=== PATIENT | female | born 1945 | race Caucasian/White ===

== ENCOUNTER 2019-08-16 14:06 | Inpatient (IN) ==
[2019-08-16] MEDS ORDERED: DUONEB (A & A) ONE (14:17)
[2019-08-16] MEDS ORDERED: ASPIRIN PO ONE (14:22)
[2019-08-16 14:32] LABS: ALLEN TEST YES; BE 3.9 mmoll (-3.0-3.0); BLOOD TYPE ARTERIAL; HCO3-(ACT) 27.8 mmoll (20.0-26.0); O2(CT) 17.9 mL/dL (15.0-23.0); PCO2(98.6) 48 mmHg (35-45); PO2(98.6) 59 mmHg (60-100); SAMPLE BLOOD; SAO2 93.7 % (95.0-100.0); THB 14.2 g/dL (11.5-17.4)
[2019-08-16 14:34] LABS: MODALITY NRB; O2HB 89.9 % (95.0-99.0)
[2019-08-16] MEDS ORDERED: LASIX IV ONE ×3 (14:40→22:00)
--- NOTE | 2019-08-16 14:53 | Diag Imaging Result Doc PS360 ---
EXAM: CHEST-1 VIEW 08/16/2019 HISTORY: resp distress TECHNIQUE: AP portable upright at 1443 COMMENT: There is a pleural effusion on the left. There is atelectasis versus pneumonia in the left lower lobe. These findings were not present on 08/25/2017. There is also some questionable atelectasis or pneumonia in the medial right base. IMPRESSION: Left pleural effusion and bibasilar atelectasis versus pneumonia. Electronically signed by Arnold Aguilar 08/16/2019 2:51 PM
[2019-08-16] MEDS ORDERED: VANCOMYCIN 1 GM/NS 1 GM/250 ML IVPB IV ONE (15:30)
[2019-08-16] MEDS ORDERED: LEVAQUIN 750 MG/D5W 750 MG/150 ML IVPB IV ONE (15:30)
--- NOTE | 2019-08-16 16:01 | Diag Imaging Result Doc PS360 ---
EXAM: CHEST-PORTABLE 08/16/2019 HISTORY: post right sbuclavian vein canulation TECHNIQUE: AP portable at 1550 COMMENT: There is ill-defined opacity in both lung bases particularly the left lower lobe. There is an apparent left pleural effusion. There is a right subclavian central venous catheter with its tip in the superior vena cava. There is no evidence of pneumothorax. Compared to the previous study at 1443 there has been no appreciable change. IMPRESSION: Bilateral lower lobe atelectasis and/or pneumonia particularly in the left lower lobe. Left pleural effusion. Electronically signed by Arnold Aguilar 08/16/2019 3:59 PM
[2019-08-16] MEDS ORDERED: PULMICORT INH ONE (16:11)
[2019-08-16] MEDS ORDERED: DUONEB (A & A) INH ONE (16:11)
[2019-08-16 16:26] LABS: URINE SOURCE CATH
[2019-08-16 16:29] LABS: BILIRUBIN URINE SMALL (NEGATIVE); BLOOD URINE NEGATIVE (NEGATIVE); COLOR ORANGE; GLUCOSE URINE NEGATIVE (NEGATIVE); KETONE URINE TRACE mg/dL (NEGATIVE); LEUKOCYTES URINE NEGATIVE (NEGATIVE); NITRITE URINE NEGATIVE (NEGATIVE); PH URINE 5.5; PROTEIN URINE 30 mg/dL (NEGATIVE); SP GRAVITY URINE 1.022; TURBIDITY URINE CLEAR (CLEAR); UROBILINOGEN URINE 8 mg/dL (NORMAL)
[2019-08-16 16:31] LABS: UR EPITHELIAL CELLS <10 /HPF (<10); URINE BACTERIA NEGATIVE /HPF; URINE RBC <10 /HPF (<10); URINE WBC <10 /HPF (<10)
[2019-08-16 16:39] LABS: BASO# 0.01 X1000 (0.0-0.2); BASO% 0.2 % (0.0-0.8); EOS# 0.04 X1000 (0.0-0.7); EOS% 0.6 % (0.0-10.0); HEMATOCRIT 42.8 % (37.0-47.0); HEMOGLOBIN 13.4 g/dL (12.0-16.0); IMM GRAN# 0.04 X1000 (0.0-0.04); IMM GRAN% 0.6 % (0.0-0.5); LYMPH# 0.85 X1000 (1.2-3.4); LYMPH% 13.3 % (20.5-51.1); MCH 30.7 PG (27-31); MCHC 31.3 g/dL (33-37); MCV 97.9 FL (81-99); MONO# 1.03 X1000 (0.11-0.59); MONO% 16.1 % (1.7-9.3); NEUT# 4.43 X1000 (1.4-6.5); NEUT% 69.2 % (42.2-75.2); PLT 191 X1000 (130-400); RBC 4.37 XMIL (4.2-5.4); RDW 16.5 % (11.5-14.5)
[2019-08-16 16:42] LABS: INR 1.13; PROTIME 14.6 Seconds (11.0-16.0); PTT 26.2 Seconds (22.3-41.8)
[2019-08-16 16:59] LABS: AGAP 13; ALBUMIN 2.7 g/dL (3.5-5.0); ALKALINE PHOSPHATASE 35 U/L (32-104); BUN 24 mg/dL (8-22); CALCIUM 8.8 mg/dL (8.8-10.2); CHLORIDE 98 mmol/L (98-107); CK PROFILE 32 U/L (24-173); COSMO 284; CREATININE 0.6 mg/dL (0.5-0.9); ESTIMATED GFR > 60; GLUCOSE 101 mg/dL (70-104); GOT 8 U/L (10-30); GPT 11 U/L (10-36); SODIUM 140 mmol/L (136-145); TCO2 29 mmol/L (25-35); TOTAL BILIRUBIN 0.68 mg/dL (0.20-1.00); TOTAL PROTEIN 5.4 g/dL (6.3-8.3)
[2019-08-16] MEDS ORDERED: POTASSIUM CHLORIDE 40 MEQ/SWI 40 MEQ/100 ML IVPB IV ONE (17:23)
--- NOTE | 2019-08-16 17:56 | PROVIDER DOCUMENTATION ---
This chart was entered by Sonya Bradley Scribe, acting as scribe for Ranjit Singletary MD. HPI-Respiratory General - General Source: patient, EMS (first response) Unable to obtain history due to:: altered (pt has decreased mental status) - History of Present Illness-Resp Quality of Pain: reports: none Severity in ED: reports: moderate Onset/Duration: reports: 1 hour ago Timing: reports: still present, constant Exposure: reports: unknown cause Cough Quality/Degree: reports: no cough Episode Frequency: no prior episodes Current Respiratory Medication Therapy: Initiated see nurses note Modifying Factors: improves with: nothing Associated Symptoms: reports: shortness of breath. denies: chest pain/soreness, dizziness, fever/chills <Ranjit Singletary - Last Filed: 08/16/19 18:43> <StephaneDiandradevin Jesus - Last Filed: 08/17/19 18:26> - General Chief Complaint: Shortness of Breath Stated Complaint: resp distress Time Seen by Provider: 08/16/19 14:09 Allergies/Adverse Reactions: Patient Allergies Allergy/AdvReac Type Severity Reaction Status Date / Time cephalexin monohydrate * Allergy Unknown Unknown Verified 08/16/19 15:53 [From Keflex] chlordiazepoxide HCl * Allergy Unknown Unknown Verified 08/16/19 15:53 [From Librium] codeine [Codeine] Allergy Unknown Unknown Verified 08/16/19 15:53 Iodinated Contrast Media Allergy Unknown Unknown Verified 08/16/19 15:53 [Iodinated Contrast Media - IV Dye] levofloxacin [From Levaquin] Allergy Unknown Unknown Verified 08/16/19 15:53 Sulfa (Sulfonamide Allergy Unknown Unknown Verified 08/16/19 15:53 Antibiotics) [Sulfa(Sulfonamide Antibiotics)] sulfamethoxazole Allergy Unknown Unknown Verified 08/16/19 15:53 [From Bactrim] trimethoprim [From Bactrim] Allergy Unknown Unknown Verified 08/16/19 15:53 Home Medications: Home Medication List Medication Instructions Recorded Confirmed Last Taken Type Alprazolam [Xanax] 1 mg PO BID 06/30/12 08/16/19 08/15/19 20:00 History Cyanocobalamin (Vitamin B-12) 1,000 mcg IM Q30D 06/30/12 08/16/19 08/06/19 12:00 History [Cobal-1000] Dicyclomine [Bentyl] 20 mg PO TID 06/30/12 08/16/19 08/15/19 20:00 History Levothyroxine [Synthroid] 100 microgm PO QPM 06/30/12 08/16/19 08/15/19 20:00 History Isosorbide Mononitrate E.r. [Imdur] 30 mg PO QAM 12/01/12 08/16/19 08/15/19 08:00 History Mag Hydrox/Al Hydrox/Simeth 20 ml PO Q4H PRN PRN 12/01/12 08/16/19 11/29/18 21:00 History [Mylanta Liq] LISINOpril [Prinivil] 20 mg PO QAM 01/21/14 08/16/19 08/16/19 08:00 History Quetiapine Fumarate [Seroquel] 50 mg PO BID 11/04/15 08/16/19 08/15/19 21:00 History Omeprazole 40 mg PO BID #60 capsule. 10/07/16 08/16/19 11/29/18 21:00 Rx Aspirin [Ecotrin] 325 mg PO BID #60 tablet. 11/30/18 08/16/19 08/15/19 20:00 Rx Albuterol 2.5MG/Ipratrop 0.5MG 1 ea IN 4XDAY 08/16/19 08/16/19 Unknown History [Duoneb (A & A)] Cetirizine HCl 10 mg PO DAILY 08/16/19 08/16/19 08/15/19 20:00 History Clindamycin HCl 300 mg PO TID 08/16/19 08/16/19 08/16/19 08:00 History Duloxetine HCl 60 mg PO DAILY 08/16/19 08/16/19 08/15/19 09:00 History Ergocalciferol (Vitamin D2) 50,000 unit PO Q7D 08/16/19 08/16/19 08/13/19 08:00 History [Vitamin D] Lactobacillus Rhamnosus GG 1 ea PO DAILY 08/16/19 08/16/19 08/15/19 08:00 History [Probiotic] Linaclotide [Linzess] 290 mcg PO QPM 08/16/19 08/16/19 08/15/19 20:00 History Metoclopramide HCl 10 mg PO BID 08/16/19 08/16/19 08/15/19 20:00 History Oxycodone HCl/Acetaminophen 1 ea PO BID 08/16/19 08/16/19 08/15/19 20:00 History [Percocet 5-325 mg Tablet] Prednisone 20 mg PO DAILY 08/16/19 08/16/19 08/15/19 08:00 History Valproic Acid (As Sodium Salt) 10 ml PO BID 08/16/19 08/16/19 08/13/19 08:00 History [Valproic Acid] - History of Present Illness-Resp Nature of Presenting Problem: 74 yowf presents to the ed via ems for sob. per ems pt was found to be having sob 1 hr prior to call for transport. when ems aos pt had nc in place with o2 sat 72%. ems placed pt on NRB and o2 sat came up to 84%. pt has decreased responsiveness with onset of sob. pt was placed on Bipap once in ed. (Ranjit Singletary) Review of Systems - Adult - REVIEW OF SYSTEMS - ADULT ROS:: limited per condition Constitutional: denies: chills, fever Eyes: reports: no symptoms reported Ears, Nose, Mouth & Throat: reports: no symptoms reported Cardiovascular: denies: chest pain, palpitations Respiratory: reports: see HPI, shortness of breath Gastrointestinal: denies: abdominal pain, diarrhea, nausea, vomiting Genitourinary: reports: no symptoms reported Musculoskeletal: reports: no symptoms reported Integumentary: reports: no symptoms reported Neurological: denies: dizziness/vertigo, headache/migraines Psychiatric: reports: no symptoms reported Endocrine: reports: no symptoms reported Hematologic/Lymphatic: reports: no symptoms reported Allergic/Immunologic: reports: no symptoms reported All Other Systems: Reviewed and Negative <Ranjit Singletary - Last Filed: 08/16/19 18:43> Past History - Adult - PAST MEDICAL HISTORY-ADULT Review of Records: reports: Old Records Reviewed, Nursing Assessment Review, Medications Reviewed, Social history reviewed & non-contributory. Major Childhood Illnesses: reports: denies history Cardiovascular: reports: CAD, HTN, hyperlipidemia Respiratory: reports: denies history Gastrointestinal: reports: GERD, IBS Obstetrical/Gynecological: reports: denies history Genitourinary: reports: kidney disease Musculoskeletal: reports: denies history Hand Dominance: Right Handed Neurological: reports: dementia, other (blindness) Psychiatric: reports: anxiety, bipolar Endocrine/Immune: reports: Diabetes, thyroid disorder Diabetes Type: Type 2 Other Conditions: reports: blindness - PRIOR SURGERIES/PROCEDURES Surgical/Procedure History: reports: cholecystectomy, hernia repair, other (Hea rt cath 11/13 with no significant CAD (20-25%), corneal transplant). denies: cardiac stent - IMMUNIZATION STATUS Childhood Immunizations: See Nurse Assessment Flu Vaccine: See Nurse Assessment - FAMILY HISTORY Family History: reviewed, not pertinent - SOCIAL HISTORY Smoking: quit greater than 1 year Substance Use: denies Living Situation: care facility <Ranjit Singletary - Last Filed: 08/16/19 18:43> Physical Exam-General - PHYSICAL EXAM-ADULT Initial Vital Signs Reviewed: Yes - CONSTITUTIONAL General Appearance: moderate distress, obese, lethargic. negative: appears well (ill appearaing) - EYES Eyes: negative: PERRL/EOMI (pt is blind) - HEAD, EARS, NOSE, MOUTH & THROAT HENMT: negative: moist mucous membranes (dry) - NECK Neck: full range of motion, normal inspection - RESPIRATORY Respiratory: respiratory distress, accessory muscle use, crackles, increased rate (32), other (pt on NRB o2 88%) - CARDIOVASCULAR Cardiovascular: tachycardia (112) - CHEST (BREASTS) Chest/Breast: deferred - GASTROINTESTINAL (ABDOMEN) Abdominal Exam: non tender, soft - GENITOURINARY Female Genitalia/Pelvic Exam: deferred Rectal Exam: deferred Hemoccult Exam: deferred - LYMPHATIC Lymphatic: no adenopathy - MUSCULOSKELETAL Back Exam: other (pt is supine in the bed) Extremity: normal capillary refill - SKIN Integumentary: warm/dry, ecchymosis (around the neck and upper chest), pallor, other (skin tear noted on left arm) - PSYCHIATRIC Psych/Mental Status: other (pt is lethargic and low to respond) <Ranjit Singletary - Last Filed: 08/16/19 18:43> Progress - PLAN OF CARE/RESULTS Result Diagrams: 08/16/19 16:22 02/13/20 15:55 - REASSESSMENT Reassessment #1 Time Reassessed: 15:31 Status: unchanged (dr at bedside) Reassessment #2 Time Reassessed: 17:28 Status: other (cardiac catheterization technician reports that patient is allergic to dye, will d/c CTA and put an order for VQ scan. Patient placed on vanco for now, She has multiple abx allergy- to cephalezine, levaquine amongst others) - XRAY 1 XRAY: Bilateral XRAY Study: Chest ( EXAM: CHEST-1 VIEW 08/16/2019 HISTORY: resp distress TECHNIQUE: AP portable upright at 1443 COMMENT: There is a pleural effusion on the left. There is atelectasis versus pneumonia in the left lower lobe. These findings were not present on 08/25/2017. There is also some questionable atelectasis or pneumonia in the medial right base. IMPRESSION: Left pleural effusion and bibasilar atelectasis versus pneumonia. Electronically signed by Arnold Aguilar 08/16/2019 2:51 PM) Impression: See EMR Report (EXAM: CHEST-1 VIEW 08/16/2019 HISTORY: resp distress TECHNIQUE: AP portable upright at 1443 COMMENT: There is a pleural effusion on the left. There is atelectasis versus pneumonia in the left lower lobe. These findings were not present on 08/25/2017. There is also some questionable atelectasis or pneumonia in the medial right base. IMPRESSION: Left pleural effusion and bibasilar atelectasis versus pneumonia. Electronically signed by Arnold Aguilar 08/16/2019 2:51 PM 08/16/19 1451 Interpreting Physician: Arnold Aguilar MD Dictated Date/Time: 08/16/19 1450 cc: Ranjit Singletary MD;) 2 XRAY: Bilateral XRAY Study: Chest Impression: See EMR Report (EXAM: CHEST-PORTABLE 08/16/2019 HISTORY: post right sbuclavian vein canulation TECHNIQUE: AP portable at 1550 COMMENT: There is ill-defined opacity in both lung bases particularly the left lower lobe. There is an apparent left pleural effusion. There is a right subclavian central venous catheter with its tip in the superior vena cava. There is no evidence of pneumothorax. Compared to the previous study at 1443 there has been no appreciable change. IMPRESSION: Bilateral lower lobe atelectasis and/or pneumonia particularly in the left lower lobe. Left pleural effusion. Electronically signed by Arnold Aguilar 08/16/2019 3:59 PM 08/16/19 1559 Interpreting Physician: Arnold Aguilar MD Dictated Date/Time: 08/16/19 1558 cc: Ranjit Singletary MD; Kaleb Langston MD) - CONSULTS/PCP/HOSPITALIST Notification #1 *Consult/PCP/Hospitalist*: hospitalist MEDICAL OFFICE ADMINISTRATOR Phyllis Time Discussed: 17:49 Consult Disposition: Will see in ED, Admit (accepts admission to Dr Crabtree) <Ranjit Singletary - Last Filed: 08/16/19 18:43> - PLAN OF CARE/RESULTS Result Diagrams: 08/17/19 03:57 08/17/19 03:57 <Diandra Calderón - Last Filed: 08/17/19 18:26> - PLAN OF CARE/RESULTS Progress/Plan/Lab Results: 08/16/19 14:29 - Final Blood Laboratory Results - last 24 hr 08/16/19 08/16/19 08/16/19 00:20 15:55 18:00 Troponin T High Sens 54 H 58 H Plasma Lactate 1.4 Orders Category Date Time Status Admit - [facility] Routine AdmDCTranf 08/16/19 21:52 Active Activity - Up with Assistance ORDERED Care 08/16/19 21:52 Active Cardiac Monitoring DIRECTED Care 08/16/19 14:21 Completed Cardiac Monitoring DIRECTED Care 08/16/19 14:22 Completed Elevate Head of Bed DIRECTED Care 08/16/19 21:52 Active Encourage Fluids DIRECTED Care 08/16/19 21:52 Active IV Insertion ORDERED Care 08/16/19 14:21 Completed Intake and Output-Strict Q 8-HR ASSESS Care 08/16/19 21:52 Active Notify MD of + Sepsis Screen NOW Care 08/16/19 14:21 Completed Notify Physician As Ordered Care 08/16/19 14:21 Active Nursing- Assist w/ IS as order ORDERED Care 08/16/19 21:52 Active Oxygen Therapy- ED Nursing DIRECTED Care 08/16/19 14:22 Completed Saline Loc NOW Care 08/16/19 14:22 Completed Turn, Cough and Deep Breathe Q2HR Care 08/16/19 21:52 Active Vital Signs Order Q 4-HR ASSESS Care 08/16/19 21:52 Completed Z-Document. for Tele Applied ORDERED Care 08/16/19 21:52 Active Diabetic Diet Diet 08/16/19 21:53 Completed CHEST-1 VIEW [RAD] Stat Exams 08/16/19 14:[address] HEAD W/O CONTRAST [CT] Stat Exams 08/16/19 18:29 Completed LUNG SCAN / VQ [NM] Stat Exams 08/16/19 17:24 Completed cxr [CHEST-PORTABLE] [RAD] Stat Exams 08/16/19 15:34 Completed ABG [RESP] Routine Lab 08/16/19 14:24 Completed BASIC METABOLIC PANEL [CHEM] Routine Lab 08/17/19 03:57 Completed BLOOD CULTURE [BLDCUL] Stat Lab 08/16/19 14:29 Results CBC WITH DIFF [HEME] Routine Lab 08/17/19 03:57 Completed CBC WITH ELECTRONIC DIFF [HEME] Routine Lab 08/16/19 16:22 Completed CK PROFILE [SP CHEM] Stat Lab 08/16/19 15:55 Completed COMPREHENSIVE METABOLIC PANEL [CHEM] Stat Lab 08/16/19 15:55 Completed D-DIMER [COAG] Stat Lab 08/16/19 15:55 Completed GRAM STAIN [BLDCUL] Stat Lab 08/16/19 14:29 Results INFLUENZA SCREEN A/B Stat Lab 08/16/19 20:50 Completed LACTATE, PLASMA [CHEM] Lab 08/16/19 18:00 Completed LACTATE, PLASMA [CHEM] Lab 08/16/19 21:07 Completed LACTATE, PLASMA [CHEM] Q3H Lab 08/16/19 15:55 Completed PRO B-NATRIURETIC PEPTIDE Stat Lab 08/16/19 15:55 Completed PROTIME WITH INR [COAG] Stat Lab 08/16/19 15:55 Completed PTT [COAG] Stat Lab 08/16/19 15:55 Completed TROPONIN T HIGH SENSITIVITY Q3H Lab 08/16/19 00:20 Completed TROPONIN T HIGH SENSITIVITY Q3H Lab 08/17/19 03:57 Completed TROPONIN T HIGH SENSITIVITY Stat Lab 08/16/19 15:55 Completed TSH Stat Lab 08/16/19 15:55 Completed URINALYSIS W/POSS RFLX CULT [URINALYSIS] Stat Lab 08/16/19 15:30 Completed Albuterol 2.5MG/Ipratrop 0.5MG [Duoneb (A & A)] Med 08/16/19 16:11 Discontinued 3 ml INH NOW ONE Albuterol 2.5MG/Ipratrop 0.5MG [Duoneb (A & A)] Med 08/16/19 21:52 Active 3 ml INH RTQ4H Albuterol 2.5MG/Ipratrop 0.5MG [Duoneb (A & A)] Med 08/16/19 14:17 Discontinued 6 ml .ROUTE .STK-MED ONE Aspirin Med 08/16/19 14:22 Discontinued 325 mg PO NOW ONE Budesonide [Pulmicort] Med 08/16/19 16:11 Discontinued 0.25 mg INH NOW ONE Enoxaparin [Lovenox] Med 08/16/19 21:52 Discontinued 40 mg SUBQ Q24H Enoxaparin [Lovenox] Med 08/16/19 18:31 Discontinued 80 mg SUBQ NOW ONE Furosemide [Lasix] Med 08/16/19 14:40 Discontinued 40 mg IV NOW ONE Levofloxacin 750 mg/D5w [Levaquin 750 mg/D5w] Med 08/16/19 15:30 Discontinued 750 mg in 150 ml IV NOW Pharmacy Order [Vancomycin IV Per Pharmacy] Med 08/16/19 21:52 Active 1 each MISC DIRECTED Potassium Chloride 20 Meq/Swi Med 08/16/19 18:30 Discontinued 20 meq in 100 ml IV Q2H Potassium Chloride 40 Meq/Swi Med 08/16/19 17:23 Stop Req 40 meq in 100 ml IV ONCE Vancomycin 1 gm/Ns Med 08/16/19 15:30 Discontinued 1 gm in 250 ml IV NOW Aerosol Treatments Routine Oth 08/16/19 16:11 Completed Aerosol Treatments Routine Oth 08/16/19 21:52 Completed Aerosol Treatments Stat Ot 08/16/19 16:11 Completed Aerosol Treatments Stat Oth 08/16/19 21:52 Completed BIPAP Routine Ot 08/16/19 21:52 Active Incentive Spirometer Routine Oth 08/16/19 21:52 Completed Oxygen Device Stat Ot 08/16/19 14:21 Completed Telemetry [OM.EQ] Routine Ot 08/16/19 21:52 Active Venous U/S Bilateral Legs Routine Ther 08/17/19 07:00 Completed Transfer/Admit Order [TRANSFER] Routine Transfer 08/16/19 18:02 Completed Procedures - CENTRAL LINE Consent Form Signed?: No (emmergency- Respiratory distress, hypotensive on bipap) Time-Out Verification Completed?: Yes Central Line Lumen: triple Central Line Procedure Prep: Kit Utilized Patient Position (To prevent Air Embolism): Trendelenburg (SC/IJ) Central Line Position: subclavian (R) Ultrasound Guided?: No Hat, mask, sterile gown, & sterile gloves worn by physician?: Yes Site scrubbed vigorously for 30 seconds? (Groin: 2 min): Yes Anesthetic: 1%, Lidocaine/Xylocaine Post Procedure: Sutured in place, Sterile field maintained, Sterile dressing applied, Blood aspirated from each lumen, Placement verfied by XRAY Complications: none <Ranjit Singletary - Last Filed: 08/16/19 18:43> Departure - Departure Date of Disposition Decision: 08/16/19 Time of Disposition Decision: 17:51 Certified Medical Emergency: Emergent - Critical Care Note This patient required my direct & personal management of CC.: Yes Total Time (mins): 39 Critical Care Statement: This patient required my direct personal management to treat or rule out processes, the absence of which, could potentiallly result in sudden, clinically significant life or limb threatening deterioration. <Ranjit Singletary - Last Filed: 08/16/19 18:43> <Diandra Calderón - Last Filed: 08/17/19 18:26> - Departure DIAGNOSIS: Elevated d-dimer Pneumonia Qualifiers: Pneumonia type: due to unspecified organism Laterality: bilateral Lung location: lower lobe of lung Qualified Code(s): J18.1 - Lobar pneumonia, unspe cified organism Dyspnea Qualifiers: Dyspnea type: unspecified Qualified Code(s): R06.00 - Dyspnea, unspecified CHF exacerbation Qualifiers: Heart failure type: unspecified Qualified Code(s): I50.9 - Heart failure, unspecified Disposition: ADMITTED INPATIENT 09 Condition: Fair Attestation - Physician/ DOMENIC Attestation Patient care was provided by Advanced Practice Provider:: No The physician spent face to face time with patient:: Yes Advanced Practice Provider documentation review:: Supervising physician onsite and consulted in the evaluation and care of this patient. The physician did have a face to face encounter with the patient. <Ranjit Singletary - Last Filed: 08/16/19 18:43> This chart was documented by the indicated scribe, (Sonya Bradley Scribe) and accurately reflects the services I performed and decisions made by me, Ranjit Singletary MD, as attested by the provider's signature.
[2019-08-16] MEDS: POTASSIUM CHLORIDE 20 MEQ/SWI 20 MEQ/100 ML IVPB IV SCH ×2 (18:30→22:41)
[2019-08-16] MEDS ORDERED: LOVENOX SUBQ ONE (18:31)
--- NOTE | 2019-08-16 19:46 | Diag Imaging Result Doc PS360 ---
EXAM: CT HEAD W/O CONTRAST 08/16/2019 HISTORY: encephalopathy TECHNIQUE: This exam was performed using automated exposure control, adjustment of mA or kV according to patient size, and/or use of iterative reconstruction technique. COMMENT: There is mild generalized cerebral atrophy. There are patchy lucencies in the periventricular white matter both hemispheres particularly in the frontal lobes and around the atria of the lateral ventricles. There is no evidence of mass effect, bleed, or abnormal extra-axial fluid collection. There are no previous studies available for comparison. There is some fluid in the mastoid air cells bilaterally. The middle ear cavities are pneumatized. The other paranasal sinuses are clear. The calvarium is intact. IMPRESSION: Chronic ischemic microvascular changes. Bilateral mastoid effusions. No evidence of acute intracranial disease. Electronically signed by Arnold Aguilar 08/16/2019 7:44 PM
--- NOTE | 2019-08-16 19:51 | Diag Imaging Result Doc PS360 ---
EXAM: CT THORAX W/O CONTRAST 08/16/2019 HISTORY: Hypoxia. Eval for Left lung pneumonia TECHNIQUE: This exam was performed using automated exposure control, adjustment of mA or kV according to patient size, and/or use of iterative reconstruction technique. COMMENT: The current study is compared with the previous examination of 11/04/2015. There is dense consolidation of both lower lobes. There are calcifications in both lower lobes which were not apparent on the previous examination. These densities may actually be related to iodine deposition from amiodarone, and clinical correlation is recommended in this regard. There is a small pericardial effusion which measures up to 6 mm anteriorly. This is slightly larger than on the previous study. There are coronary calcifications. The aorta is not distended. There is some motion artifact. There is some ill-defined opacity in the lingula which was not the case on the previous study. This was also not present previously. The regional skeleton is intact. There is a right subclavian catheter with its tip in the superior vena cava. IMPRESSION: Bilateral lower lobe pneumonia. Minimal pneumonitis in the right upper lobe. Radio opacity in both lower lobes which may be related to amiodarone deposition. Electronically signed by Arnold Aguilar 08/16/2019 7:49 PM
[2019-08-16] MEDS ORDERED: ASPIRIN PR ONE (19:59)
--- NOTE | 2019-08-16 20:09 | EKG Report ---
Test Performed on : 08/16/2019 6:48:05 PM Test Reason : Evaluate for ST T changes/ACS Blood Pressure : / mmHG Vent. Rate : 102 BPM Atrial Rate : 102 BPM P-R Int : 144 ms QRS Dur : 114 ms QT Int : 326 ms P-R-T Axes : 046 012 206 degrees QTc Int : [address] & T wave abnormality, consider inferolateral ischemia Abnormal ECG When compared with ECG of 25-AUG-2017 07:37, Vent. rate has increased BY 49 BPM T wave inversion now evident in Inferior leads T wave inversion now evident in Anterolateral leads Confirmed by Rut Esteves MD ([id number]) on 08/17/2019 12:17:10 PM
[2019-08-16] MEDS ORDERED: VANCOMYCIN IV PER PHARMACY MISC SCH (21:52)
[2019-08-16] MEDS ORDERED: LOVENOX SUBQ SCH (21:52)
[2019-08-16] MEDS: SYNTHROID PO SCH (22:47)
--- NOTE | 2019-08-16 22:47 | PROGRESS NOTE ---
DATE: 08/16/2019 I called patient's son and left a voice message. He did not pick and shovel man. The daughter's number, which is listed in the patient's computer chart, is not functioning, and it states that number was not accepting incoming calls. I will try again and reach out to patient's son tomorrow to discuss with him about the patient's critical clinical condition. cc: Fausto Crabtree MD
[2019-08-16] MEDS: REGLAN PO SCH (22:48)
[2019-08-16] MEDS: PRILOSEC PO SCH (22:48)
[2019-08-16] MEDS: DUONEB (A & A) INH SCH (23:10)
--- NOTE | 2019-08-16 23:27 | HISTORY AND PHYSICAL ---
PRIMARY CARE PHYSICIAN: Dr. Kaleb Langston. CHIEF COMPLAINT: Respiratory distress. Was found on O2 at 2 L via nasal cannula saturating in the 70s when EMS arrived to [facility]. Then placed on a non-rebreather at 15 L and O2 saturation came up to 88 to 90 percent. HISTORY OF PRESENTING ILLNESS: This is a 74-year-old female who presents to [facility] via EMS from [facility] after she was found to be in respiratory distress. When EMS arrived, she was on O2 via nasal cannula saturating in the 70s. They placed her on a non-rebreather at 15 L and her O2 saturation came up to 88 to 90 percent. Was in obvious distress. Laboratory data showed a D-dimer of 0.87. We were unable to do a PE study via CTA due to allergy to contrast dye, so we will order a V/Q scan for in the morning. Her ABG on the 15 L of non-rebreather showed a pH of 7.40, pCO2 of 48, PO2 of 59, bicarbonate 27.8. Potassium was 3. ProBNP of 1524. Plasma lactate was 1.8. Her chest x-ray showed bilateral lower lobe atelectasis and/or pneumonia particularly in the left lobe with a left pleural effusion. This was status post placement of a right subclavian vein catheter. So she will be admitted to the PVC unit for further evaluation and treatment. PAST MEDICAL HISTORY: Anxiety, depression, dementia, hypertension, blindness, hyperlipidemia, GERD, hypothyroidism, diabetes type 2, and coronary artery disease. PAST SURGICAL HISTORY: Cholecystectomy, hernia repair, and a corneal transplant. FAMILY HISTORY: Reviewed and noncontributory. SOCIAL HISTORY: She currently resides at [facility]. She is a former smoker but none currently and denies any alcohol or illicit drug use. ALLERGIES: Keflex, Librium, codeine, iodinated contrast media dye, Levaquin, sulfa. HOME MEDICATIONS: We will obtain a current list, reconcile, review and restart as appropriate. We will place an order for Nursing to update and confirm home medications. LABORATORY DATA: Showed a white blood cell count of 6.40, hemoglobin 13.4, hematocrit 42.8, platelets 191,000. PT and INR of 14.6 and 1.13 with a D-dimer of 0.87. ABG on 15 L flow of non- rebreather showed a pH of 7.40, pCO2 of 48, PO2 of 59, bicarbonate 27.8. Sodium 140, potassium 3.0, chloride 98, CO2 of 29, BUN of 24, creatinine 0.6, glucose 101. ProBNP of 1524. Plasma lactate of 1.8. TSH 0.43. Urinalysis was negative. Chest x-ray showed bilateral lower lobe atelectasis and/or pneumonia particularly in the left lobe with a left pleural effusion. She also had of placement of a right subclavian line. REVIEW OF SYSTEMS: Unable to obtain from patient. PHYSICAL EXAMINATION: VITAL SIGNS: Temperature on arrival 98.1, pulse 112, respirations 32, blood pressure 110/41. She was saturating 90% on a 15 L non-rebreather, placed on BiPAP saturating 96%. HEENT: Normocephalic, atraumatic. Normal ENT inspection. Eyes: The patient is noted to have blindness. Pupils equal, round, reactive to light and accommodation. Extraocular movements unable to assess at this time. NECK: Normal inspection. Normal range of motion. LUNGS: With crackles, tachypnea. Accessory muscle use was noted. BiPAP currently in use. HEART: Tachycardia. No murmurs, rubs, or gallops. ABDOMEN: Soft, nontender, nondistended. Bowel sounds are present x4 quadrants. MUSCULOSKELETAL: Unable to assess strength at this time as patient is lethargic and slow to respond. NEUROLOGICAL: The cranial nerves 2-12 appear grossly intact. ASSESSMENT: 1. Bilateral pneumonia. 2. Acute respiratory failure. 3. Elevated D-dimer. 4. Hypokalemia. 5. Diabetes type 2. 6. Hypertension. 7. Dementia. PLAN: She will be admitted to the PVC unit, placed on telemetry. Continue BiPAP. Incentive spirometry when she wakes up. She will be on Rocephin 1 gram IV q.24, vancomycin per pharmacy protocol, Lovenox 40 mg subcutaneous every 24. We are going to check a V/Q scan and do a bilateral lower extremity venous Doppler in the a.m. We will do DuoNeb q.4 hours. We will recheck a CBC, BMP in the a.m. and further orders after seen by attending. Dictated by ANA Myers for Fausto Crabtree MD cc: ANA Myers MD Kirk L. Jackson, MD I agree with most components of history, physical, assessment and plan. A separate addendum has been dictated. MTDD
[2019-08-17] MEDS: AZACTAM 1 GM in NS 50 ML IV SCH ×4 (00:25→22:56)
[2019-08-17] MEDS: DUONEB (A & A) INH SCH ×7 (00:43→23:10)
[2019-08-17] MEDS ORDERED: VANCOMYCIN 500 MG/NS 500 MG/100 ML IVPB IV ONE (02:30)
--- NOTE | 2019-08-17 03:10 | HISTORY AND PHYSICAL ---
ADDENDUM To history and physical dictated by nurse practitioner. I agree with most of history, physical assessment and plan. IN BRIEF: Ms Del Toro is a 74-year-old lady with history of hypertension, hyperlipidemia, diabetes mellitus type 2, hypothyroidism, chronic gastroesophageal reflux disease, irritable bowel syndrome, bilateral blindness, anxiety, coronary artery disease with prior history of smoking, who was brought in from the detention for chief complaint of shortness of breath and acute encephalopathy. When EMS arrived, she was found to have oxygen saturation in the 60s, so non- rebreather mask was applied and oxygen saturation increased to 80s. In the emergency room, she was found to have temperature of 98.1 degrees, pulse of 112, respiratory 32, blood pressure 110/41, and she was saturating 90% on 100% non rebreather mask. She was given a dose of intravenous Lasix, intravenous antibiotics. Chest x-ray performed had bilateral effusions, so the hospitalist team was consulted for further management. At the time of my evaluation, patient is on BiPAP, appears comfortable. However, she is not responding to painful stimuli. She occasionally mumbles. I could not get adequate history out of her as she is just nonverbal. VITALS: Temperature 98.3 degrees, pulse 101, respiratory rate 17, blood pressure 120/70, saturating 98% on BiPAP. I decreased her FiO2 from 100% to 80% on BiPAP, and she is still saturating 80%. PHYSICAL EXAMINATION: HEENT: She has bilateral corneal xerosis. I could not examine her oral cavity since she has a BiPAP mask. LUNGS: Air entry appears bilaterally equal. No wheeze or rhonchi. She had crackles in inframammary region. However, examination is limited since her respiratory effort is shallow. CARDIOVASCULAR: S1, S2 normal. No murmur or gallop. ABDOMEN: Soft, obese, nontender. EXTREMITIES: She does have edema of bilateral legs. She has bruising affecting both bilateral upper extremities. She does not answer questions or open her eyes. She is flickering to painful stimuli. She has a plantar aspect response to bilateral Babinski sign. LABS: Suggestive of no leukocytosis, hemoglobin of 13.4, platelet 191,000. She did have slight elevation of D-dimer to 0.87. ABG suggestive of hypoxia. She does have hypokalemia, which is currently being repleted as well as elevated proBNP. She also had an elevated troponin T, which was elevated to 58. ASSESSMENT AND PLAN: 1. Acute encephalopathy. 2. Acute hypoxic respiratory failure due to bilateral pleural effusion and bilateral lower lobe pneumonia. 3. Dementia. 4. Myocardial infarction. The EKG is not available, I checked with the patient's nurse as well as emergency room physician. I could not await any EKG. On the teletypesetter monitor, she does not have any ST elevation. Serial troponins have been ordered. A stat EKG has also been ordered. 5. Reported history of dementia. PLAN: 1. I will start the patient on intravenous Lasix. I will give her empiric dose of Lovenox considering elevated D-dimer, sudden onset of acute hypoxia as well as elevated troponin. 2. I have ordered stat EKG as well will trend troponin. I will also give her stat dose of rectal aspirin. 3. I will follow up with head CT and CT scan of the thorax. 4. I will keep patient on intravenous antibiotics. 5. Disposition: I will monitor patient in the PVC. I will try to reach out to the family. cc: Fausto Crabtree MD
[2019-08-17 04:05] LABS: BASO# 0.01 X1000 (0.0-0.2); BASO% 0.1 % (0.0-0.8); EOS# 0.03 X1000 (0.0-0.7); EOS% 0.3 % (0.0-10.0); HEMATOCRIT 41.1 % (37.0-47.0); IMM GRAN# 0.06 X1000 (0.0-0.04); IMM GRAN% 0.7 % (0.0-0.5); LYMPH# 1.61 X1000 (1.2-3.4); LYMPH% 18.4 % (20.5-51.1); MCH 30.8 PG (27-31); MCHC 31.6 g/dL (33-37); MCV 97.4 FL (81-99); MONO# 1.31 X1000 (0.11-0.59); MONO% 14.9 % (1.7-9.3); MPV 9.3 FL (7.4-10.4); NEUT# 5.75 X1000 (1.4-6.5); NEUT% 65.6 % (42.2-75.2); PLT 154 X1000 (130-400); RBC 4.22 XMIL (4.2-5.4); RDW 16.5 % (11.5-14.5); WBC 8.77 X1000 (4.8-10.8)
[2019-08-17 04:47] LABS: AGAP 14; BUN 26 mg/dL (8-22); CALCIUM 8.7 mg/dL (8.8-10.2); CHLORIDE 99 mmol/L (98-107); COSMO 288; CREATININE 0.6 mg/dL (0.5-0.9); ESTIMATED GFR > 60; GLUCOSE 102 mg/dL (70-104); POTASSIUM 3.6 mmol/L (3.5-5.1); SODIUM 142 mmol/L (136-145); TCO2 29 mmol/L (25-35)
[2019-08-17 07:17] LABS: ALLEN TEST YES; BE 5.4 mmoll (-3.0-3.0); BLOOD TYPE ARTERIAL; HCO3-(ACT) 29.2 mmoll (20.0-26.0); PCO2(98.6) 42 mmHg (35-45); PO2(98.6) 155 mmHg (60-100); SAMPLE BLOOD; pH(98.6) 7.46 (7.35-7.45)
[2019-08-17 07:19] LABS: MODALITY BI PAP
[2019-08-17] MEDS ORDERED: IMDUR PO SCH (09:00)
[2019-08-17] MEDS ORDERED: LACTINEX PO SCH (09:00)
[2019-08-17] MEDS: CULTURELLE PO SCH (09:01)
[2019-08-17] MEDS: ZYRTEC PO SCH (09:01)
[2019-08-17] MEDS: ASPIRIN EC PO SCH ×2 (09:01→20:35)
[2019-08-17] MEDS: PREDNISONE PO SCH (09:02)
[2019-08-17] MEDS: PRILOSEC PO SCH ×2 (09:02→20:35)
[2019-08-17] MEDS: REGLAN PO SCH ×2 (09:02→20:35)
[2019-08-17] MEDS ORDERED: LOVENOX SUBQ SCH (10:00)
--- NOTE | 2019-08-17 11:35 | PROGRESS NOTE ---
DATE: 08/17/2019 INTERVAL HISTORY: She underwent a CT scan of head and chest, CT scan of the chest has bilateral lower lobe pneumonia, CT scan of head had chronic microvascular ischemic changes. No other acute overnight events. Her oxygenation was adequate on BiPAP. VITALS: Currently, temperature 99.3 degrees, pulse 88, respiratory rate 20, blood pressure 94/62. She is saturating 99% on BiPAP. I turned the oxygen down to 70% and she was still saturating well. Input and output suggest -400 mL. PHYSICAL EXAMINATION: General: Not in any acute distress. HEENT: Oral cavity is dry. Bilateral corneal xerosis. Lungs: Air entry bilaterally equal. No wheeze or rhonchi, however examination is limited because of presence of BiPAP. Cardiovascular: S1, S2 normal. No murmur, rub, or gallop. Abdomen: Soft, obese, nontender. Extremities: Edema of bilateral legs. She has urine catheter. She has a right-sided subclavian central venous catheter. LABORATORY: Suggestive of WBC of 8000, hemoglobin 13, platelet 154,000. ABG suggestive of pO2 of 155 on 80% BiPAP. BUN of 26, creatinine of 0.6. Her troponin has been showing flat trend from 54 to 49. No positive microbiological data. IMAGING: Chest CT as mentioned has bilateral lower lobe pneumonia. EKG yesterday had ST-T abnormalities in inferolateral leads. ASSESSMENT AND PLAN: 1. Acute hypoxic respiratory failure and acute encephalopathy due to bilateral lower lobe pneumonia. Continue oxygenation through BiPAP and transition to Ventimask as tolerated. Continue intravenous vancomycin and intravenous aztreonam. Follow up final blood culture results. I will consider starting her on intravenous fluids as necessary. 2. Suspected type 2 myocardial infarction. This could be in the setting of ongoing hypoxic respiratory failure. Electrocardiogram did have anterolateral ischemia-related changes. She did have prior history of coronary artery disease the details of which are currently not clear. I will keep her on enoxaparin for deep venous thrombosis prophylaxis, aspirin. I will follow up with a lipid panel and start her on atorvastatin as indicated. 3. History of dementia. Her baseline status has not been known. 4. Others, continue home cetirizine, isosorbide mononitrate with holding parameters, levothyroxine for hypothyroidism, metoclopramide as necessary for nausea and vomiting, and omeprazole. She is also listed to be taking prednisone. DISPOSITION: I will continue to monitor patient in [facility]. I again called patient's son to get more inputs on her baseline functional status and history, however, it again went into his voicemail and I had left a voicemail. Plan of care discussed with nursing team. cc: Fausto Crabtree MD
--- NOTE | 2019-08-17 12:44 | Diag Imaging Result Doc PS360 ---
EXAM: LUNG SCAN / VQ HISTORY: respiratory distress, elevated D- dimer TECHNIQUE: Nuclear medicine ventilation/perfusion lung scan COMPARISON: Recent CT of the chest FINDINGS: 39.4 mCi DTPA used for the ventilation images. 5.3 mCi MAA given intravenously for the perfusion images. Only anterior and posterior images obtained due to the patient's condition. Mild decreased ventilation and perfusion inferiorly in both lungs. Recent CT demonstrates bilateral lower lobe infiltrates. No ventilation perfusion mismatches. IMPRESSION: Low probability for pulmonary embolus. Electronically signed by Johnnie Bhardwaj 08/17/2019 12:41 PM
[2019-08-17] MEDS ORDERED: CARDIZEM IV ONE (18:27)
[2019-08-17] MEDS ORDERED: LOPRESSOR IV PRN (19:09)
[2019-08-17] MEDS: LOVENOX SUBQ SCH (20:33)
[2019-08-17] MEDS: LIPITOR PO SCH (20:35)
[2019-08-17] MEDS: SYNTHROID PO SCH (20:35)
--- NOTE | 2019-08-17 23:40 | EKG Report ---
Test Performed on : 08/17/2019 6:16:16 PM Test Reason : tachycardia Blood Pressure : / mmHG Vent. Rate : 153 BPM Atrial Rate : 144 BPM P-R Int : 000 ms QRS Dur : 098 ms QT Int : 296 ms P-R-T Axes : 000 033 208 degrees QTc Int : 472 ms Atrial fibrillation. with rapid ventricular response. ST & T wave abnormality, consider lateral ischemia Abnormal ECG When compared with ECG of 16-AUG-2019 18:48, Atrial fibrillation. has replaced Sinus rhythm. Vent. rate has increased BY 51 BPM T wave inversion no longer evident in Inferior leads Nonspecific T wave abnormality has replaced inverted T waves in Anterior leads Confirmed by Rut Esteves MD ([id number]) on 08/21/2019 7:38:02 AM
[2019-08-18] MEDS: DUONEB (A & A) INH SCH ×6 (03:10→23:51)
[2019-08-18] MEDS: VANCOMYCIN 1,400 MG in NS 250 ML IV SCH (05:55)
[2019-08-18 06:15] LABS: CHOLESTEROL 151 mg/dL (0-200); HDL 56 mg/dL (45-65); LDL 65 mg/dL; TRIGLYCERIDES 152 mg/dL (35-135); VLDL 30 mg/dL
[2019-08-18] MEDS: AZACTAM 1 GM in NS 50 ML IV SCH ×3 (06:20→23:33)
[2019-08-18] MEDS: ZYRTEC PO SCH (08:32)
[2019-08-18] MEDS: LOVENOX SUBQ SCH ×3 (08:32→20:54)
[2019-08-18] MEDS: ASPIRIN EC PO SCH ×2 (08:32→20:54)
[2019-08-18] MEDS: CULTURELLE PO SCH (08:32)
[2019-08-18] MEDS: PREDNISONE PO SCH (08:32)
[2019-08-18] MEDS: REGLAN PO SCH ×2 (08:32→20:54)
[2019-08-18] MEDS: PRILOSEC PO SCH ×2 (08:32→20:54)
--- NOTE | 2019-08-18 09:57 | PROGRESS NOTE ---
DATE: 08/18/2019 INTERVAL HISTORY: Ms. Del Toro was able to be weaned down from BiPAP to nasal cannula and she since has become more awake and alert. I had a detailed discussion about her health condition with her son at bedside yesterday including her bilateral pneumonia. I also discussed with him about my concern regarding her respiratory status as well as the code status and he had expressed that he wanted us to do everything including chest compressions and ventilator if need arises. SUBJECTIVE: Ms. Del Toro is more awake today and answers simple questions. She states she has been coughing and bringing up some expectoration at [facility]. She denies currently chest pain or shortness of breath. VITALS: Temperature 97.8 degrees, pulse 69, respiratory 17, blood pressure 117/74. She is saturating 99% on 3 L nasal cannula. PHYSICAL EXAMINATION: Oral cavity is moist.Lungs: Air entry is bilaterally equal. No wheeze or rhonchi however examination was limited. Mild crackles in infra-axillary region. Heart: S1, S2 normal. No murmur, rub, or gallop. Abdomen: Soft, nontender. She has urine catheter. Extremities: Mild edema bilateral lower extremities. She has a right-sided subclavian central venous catheter. Input and output suggests -175 mL so far. LABS: No CBC or BMP today. Her lipid panel had a total cholesterol of 115, LDL of 65. Microbiology 1 of the 2 blood cultures growing coagulase negative Staphylococcus. IMAGING: No new imaging. ASSESSMENT AND PLAN: 1. Acute hypoxic respiratory failure and acute encephalopathy due to bilateral lower lobe pneumonia, now improving. Continue oxygenation through nasal cannula, intravenous vancomycin and aztreonam. 1 of the 2 positive blood cultures grew Staph coagulase-negative. Staphylococcus is likely a contaminant. 2. Atrial fibrillation with rapid ventricular response. She received intravenous diltiazem and intravenous metoprolol yesterday. I will follow up with repeat EKG and follow up with echocardiogram. Based on that, I will calculated [id number] score to see if she would need long-term anticoagulation. 3. Type 2 myocardial infarction in the setting of hypoxic respiratory failure. Electrocardiogram had anterolateral ischemia related changes. The patient denies receiving any stent in the past. I will keep her on enoxaparin for deep venous thrombosis prophylaxis and her home dose of aspirin. She does not have hypercholesterolemia. She is not listed to be taking atorvastatin. 4. History of dementia. According to son, baseline status. She does have legal blindness and she remains in the bed and she needs help with her activities of daily living including bathing, eating. However, she can recognize her son by name and today she was able to answer simple questions to me. 5. Others. Continue home isosorbide mononitrate with holding parameters for hypertension, levothyroxine for hypothyroidism, metoclopramide as necessary for nausea and vomiting, and omeprazole. DISPOSITION: Continue monitor patient in PVC. Plan of care discussed with the patient. Yesterday I had a detailed discussion of plan of care with the patient's son at bedside and his questions were satisfactorily answered. I will also start her on mechanical soft diet. cc: Fausto Crabtree MD
[2019-08-18] MEDS: TYLENOL PO PRN (11:02)
--- NOTE | 2019-08-18 13:56 | Extremity Venous Study ---
PROCEDURE NAME: Venous U/S Bilateral Legs - 08/17/2019 PROCEDURE: Bilateral lower extremity venous study. DATE OF STUDY: 08/17/2019. REQUESTING PROVIDER: Syed. SIGNAL OPERATOR: Orlin. INDICATIONS: Elevated D-dimer. EQUIPMENT: Spiralcatid E 9 ultrasound system with a 9 L-D transducer. FINDINGS: Images of bilateral lower extremity venous systems were obtained in both sagittal and transverse planes. Doppler was used to evaluate veins for spontaneity, phasicity, respiratory excursion, and digital augmentation. RESULTS: Normal venous compression, normal venous flow. No obvious superficial or deep venous thrombosis noted. INTERPRETATION: Essentially normal bilateral lower extremity venous study. cc: MD Phyllis Barksdale CRNP
--- NOTE | 2019-08-18 19:31 | EKG Report ---
Test Performed on : 08/18/2019 11:28:00 AM Test Reason : Follow up heart rhythm Blood Pressure : / mmHG Vent. Rate : 072 BPM Atrial Rate : 072 BPM P-R Int : 156 ms QRS Dur : 110 ms QT Int : 382 ms P-R-T Axes : 068 000 193 degrees QTc Int : 418 ms Normal sinus rhythm. Minimal voltage criteria for LVH, may be normal variant Nonspecific T wave abnormality Abnormal ECG When compared with ECG of 17-AUG-2019 18:16, (Unconfirmed) Sinus rhythm. has replaced Atrial fibrillation. Vent. rate has decreased BY [address] no longer depressed in Anterior leads Confirmed by Rut Esteves MD ([id number]) on 08/21/2019 7:39:21 AM
[2019-08-18] MEDS: LIPITOR PO SCH (20:54)
[2019-08-18] MEDS: SYNTHROID PO SCH (20:54)
[2019-08-19] MEDS: DUONEB (A & A) INH SCH ×6 (03:30→23:25)
[2019-08-19] MEDS: TYLENOL PO PRN ×2 (06:28→20:46)
[2019-08-19] MEDS: AZACTAM 1 GM in NS 50 ML IV SCH ×3 (06:28→22:10)
[2019-08-19 07:18] LABS: AGAP 11; BUN 21 mg/dL (8-22); CALCIUM 9.6 mg/dL (8.8-10.2); CHLORIDE 99 mmol/L (98-107); COSMO 279; CREATININE 0.3 mg/dL (0.5-0.9); ESTIMATED GFR > 60; GLUCOSE 76 mg/dL (70-104); MAGNESIUM 2.1 mg/dL (1.5-2.7); POTASSIUM 3.3 mmol/L (3.5-5.1); SODIUM 139 mmol/L (136-145); TCO2 29 mmol/L (25-35)
[2019-08-19 07:29] LABS: BASO# 0.01 X1000 (0.0-0.2); BASO% 0.2 % (0.0-0.8); EOS# 0.02 X1000 (0.0-0.7); EOS% 0.4 % (0.0-10.0); HEMATOCRIT 33.4 % (37.0-47.0); HEMOGLOBIN 10.7 g/dL (12.0-16.0); IMM GRAN# 0.02 X1000 (0.0-0.04); IMM GRAN% 0.4 % (0.0-0.5); LYMPH# 1.46 X1000 (1.2-3.4); LYMPH% 26.3 % (20.5-51.1); MCH 31.6 PG (27-31); MCV 98.5 FL (81-99); MONO# 0.54 X1000 (0.11-0.59); MONO% 9.7 % (1.7-9.3); MPV 10.3 FL (7.4-10.4); PLT 145 X1000 (130-400); RBC 3.39 XMIL (4.2-5.4); RDW 15.8 % (11.5-14.5); WBC 5.55 X1000 (4.8-10.8)
[2019-08-19] MEDS ORDERED: LEVSIN-SL SL PRN (08:08)
[2019-08-19] MEDS: ASPIRIN EC PO SCH ×2 (08:24→20:46)
[2019-08-19] MEDS: CULTURELLE PO SCH (08:24)
[2019-08-19] MEDS: PREDNISONE PO SCH (08:24)
[2019-08-19] MEDS: PRILOSEC PO SCH ×2 (08:24→20:46)
[2019-08-19] MEDS: ZYRTEC PO SCH (08:24)
[2019-08-19] MEDS: REGLAN PO SCH ×2 (08:24→20:46)
[2019-08-19] MEDS: POTASSIUM CHLORIDE 20 MEQ/SWI 20 MEQ/100 ML IVPB IV SCH ×2 (08:57→10:54)
[2019-08-19] MEDS: MIRALAX PO SCH (08:57)
[2019-08-19] MEDS: DULCOLAX PR SCH ×2 (08:58→20:47)
--- NOTE | 2019-08-19 10:46 | ECHO REPORT ---
ORDER DATE: 08/17/2019 SUMMARY: 1. Very difficult study for interpretation due to very limited acoustic window quality. Intravenous echocontrast agent, Optison, was utilized to enhance endocardial definition. 2. The aortic valve is not well imaged. The peak gradient across the aortic valve is less than 10 mmHg. Mitral and tricuspid valves are without gross structural abnormality. Pulmonic valve is not well demonstrated. The aortic root is grossly normal in size. 3. Grossly normal left ventricular dimensions suggested. The estimated left ventricular ejection fraction appears to be at least 60%. No obvious wall motion abnormality can be appreciated. Left atrium, right atrium, and right ventricle are grossly normal in size with grossly preserved right ventricular systolic function. 4. No pericardial effusion. 5. Inferior vena cava not well demonstrated. CONCLUSIONS: 1. Very difficult study for interpretation. 2. No obvious valvular abnormality evident. 3. Grossly normal left ventricular systolic function without obvious regional wall motion abnormality. cc: MD Fausto Silverio MD
--- NOTE | 2019-08-19 13:13 | PROGRESS NOTE ---
DATE: 08/19/2019 INTERVAL HISTORY: No acute events overnight. The patient was tolerating nasal cannula well and was started on mechanical soft diet. One of her 2 blood cultures was positive; however, it was coagulase-negative Staphylococcus, likely a contaminant. SUBJECTIVE: Ms. Del Toro states that she has some abdominal pain, but could not locate it. She denies any chest pain, shortness of breath. She only has occasional cough. Her son is at bedside. VITALS: Temperature 98.2 degrees, pulse 75, respiratory 18, blood pressure 143/66, saturating 96% on 4 L nasal cannula. PHYSICAL EXAMINATION: General: Not in acute distress. HEENT: Oral cavity is moist. Lungs: Air entry bilaterally equal. No wheeze or rhonchi or crackles, though examination was limited. Heart: S1, S2 normal. No murmur or gallop. Abdomen: Soft, nontender. She has urine catheter which is draining 375 mL of urine. Extremities: She has edema of bilateral lower extremities. She has a right-sided subclavian central venous catheter. Neurologic: She has bilateral legal blindness. She is able to answer simple questions. She also has generalized tremors, but she appears to have dementia, and she is not entirely oriented with situation. LABS: Suggestive of hemoglobin of 10.7. Her potassium is 3.3, BUN of 21, creatinine of 0.3. Her hypokalemia is currently being repleted. No positive microbiological data. IMAGING: Extremity venous study did not have any evidence of DVT. Echocardiogram had no obvious valvular abnormality. Grossly normal left ventricular systolic function. ASSESSMENT AND PLAN: 1. Acute hypoxic respiratory failure and acute encephalopathy due to bilateral lower lobe pneumonia, now improving. Continue oxygenation through nasal cannula, continue intravenous vancomycin and aztreonam. My plan is to change antibiotics to oral Levaquin starting tomorrow. 2. Atrial fibrillation with rapid ventricular response. This is likely in the setting of her acute hypoxic respiratory failure. It was just a single episode which resolved. I will change enoxaparin to prophylactic dose considering it was just a one time episode and she is in normal sinus rhythm right now. 3. Type 2 myocardial infarction in the setting of hypoxic respiratory failure with anterolateral EKG changes. Continue aspirin, and I will keep her on high-dose atorvastatin. 4. History of dementia, which is currently stable. Continue isosorbide as needed for hypertension, levothyroxine for hypothyroidism, and metoclopramide as needed for nausea and vomiting and omeprazole for GERD. DISPOSITION: Continue monitor the patient in PVC, and I will consider transferring out to medical floor. Plan of care discussed with the patient and her son at bedside. Their questions have been answered. cc: Fausto Crabtree MD
--- NOTE | 2019-08-19 13:24 | Diag Imaging Result Doc PS360 ---
EXAM: CHEST-2 VIEWS 08/19/2019 HISTORY: Follow up bilateral pneumonia TECHNIQUE: PA and lateral chest COMMENT: There is dense opacification in the left lower lobe. There is blunting of the left costophrenic angle. There has been some improvement since 08/16/2019. IMPRESSION: Improved left lower lobe pneumonia. Electronically signed by Arnold Aguilar 08/19/2019 1:22 PM
[2019-08-19] MEDS: VANCOMYCIN 1,400 MG in NS 250 ML IV SCH (17:48)
[2019-08-19] MEDS ORDERED: LOVENOX SUBQ SCH (20:00)
[2019-08-19] MEDS: LIPITOR PO SCH (20:46)
[2019-08-19] MEDS: SYNTHROID PO SCH (20:46)
[2019-08-19] MEDS ORDERED: NORCO-7.5 PO ONE (21:52)
[2019-08-20] MEDS: DUONEB (A & A) INH SCH ×4 (03:35→15:55)
[2019-08-20] MEDS: AZACTAM 1 GM in NS 50 ML IV SCH ×2 (06:38→16:09)
[2019-08-20] MEDS: CULTURELLE PO SCH (09:05)
[2019-08-20] MEDS: MIRALAX PO SCH (09:05)
[2019-08-20] MEDS: PREDNISONE PO SCH (09:05)
[2019-08-20] MEDS: ZYRTEC PO SCH (09:06)
[2019-08-20] MEDS: ASPIRIN EC PO SCH (09:06)
[2019-08-20] MEDS: PRILOSEC PO SCH (09:06)
[2019-08-20] MEDS: DULCOLAX PR SCH (09:06)
[2019-08-20] MEDS: REGLAN PO SCH (09:06)
[2019-08-20] MEDS: TYLENOL PO PRN (09:06)
[2019-08-20] MEDS ORDERED: PERCOCET-5 PO SCH (09:15)
[2019-08-20] MEDS ORDERED: POTASSIUM CHLORIDE 20% LIQUID PO ONE (12:53)
--- NOTE | 2019-08-20 15:22 | DISCHARGE SUMMARY ---
ADMISSION DATE: 08/16/2019 DISCHARGE DATE: 08/20/2019 DISCHARGE DISPOSITION: Back to assisted facility. DISCHARGE CONDITION: Hemodynamically stable. The patient is breathing well on room air to just 2 L nasal cannula. DISCHARGE DIAGNOSES: 1. Acute hypoxic respiratory failure. 2. Acute encephalopathy. 3. Bilateral lower lobe pneumonia. 4. Episode of atrial fibrillation with rapid ventricular response. 5. Type 2 myocardial infarction in the setting of hypoxic respiratory failure with anterolateral electrocardiogram changes. OTHER DIAGNOSES: 1. History of dementia. 2. History of bilateral blindness. 3. History of chronic abdominal pain. 4. History of hypothyroidism. 5. History of chronic gastroesophageal reflux disease. 6. History of anxiety. DISCHARGE MEDICATIONS: 1. Doxycycline 100 mg b.i.d. for 3 days for pneumonia. 2. Dicyclomine 20 mg t.i.d. 3. Duloxetine 60 mg daily. 4. DuoNebs 3 mL inhaled 4 times a day. 5. Linaclotide 290 mcg in the nighttime. 6. Metoclopramide 10 mg b.i.d. 7. Prednisone 20 mg daily. 8. Probiotic 1 tablet daily. 9. Quetiapine 50 mg b.i.d. 10. Levothyroxine 100 mcg in the evening time. 11. Valproic acid 10 mL b.i.d. 12. Vitamin D2 with 50,000 units every 7 days. 13. Alprazolam 1 mg b.i.d. 14. Atorvastatin 40 mg at nighttime. 15. Aspirin 325 mg daily. 16. Omeprazole 40 mg b.i.d. 17. Percocet 5 one tablet b.i.d. Her home medications of isosorbide mononitrate extended release and lisinopril have been decreased. Her prednisone should be tapered down as tolerated if there was no other indication. MEDICATION ALLERGIES: The patient is listed to be allergic to cephalexin, chlordiazepoxide, codeine, iodinated contrast media, levofloxacin, sulfa drugs including Bactrim. VITALS: At the time of discharge, temperature is 97.7 degrees, pulse 85, respiratory rate 22, blood pressure 124/62, saturating 98% on 2 to 3 L nasal cannula. PHYSICAL EXAMINATION: Ms. Del Toro did not appear in acute distress. Oral cavity is moist. 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 Air entry bilaterally equal. No wheeze, rhonchi, or crackles. S1, S2 normal. No murmur, rub, or gallop. Abdomen was soft, nontender. No lower extremity edema. She did have bruising of bilateral upper extremities and lower extremities. She was able to answer most questions appropriately. She did have memory impairment. LABORATORY DATA: At the time of discharge, WBC 5.5, hemoglobin 10.7, platelets 145,000. Potassium 3.3 which was being repleted, BUN 21, creatinine 0.3. On presentation, she had proBNP of 1500. She also had troponin of 54, which is decreasing to 49. Plasma lactate on presentation was 1.8. MICROBIOLOGY: One of the two blood cultures was growing coagulase-negative staphylococcus. Influenza screen was negative. Blood culture was thought to be a contaminant. SIGNIFICANT IMAGING: During hospital admission, chest x-ray on August 16 had left pleural effusion, basilar atelectasis versus pneumonia. V/Q scan had only low probability of pulmonary embolism. Head CT had chronic microvascular ischemic changes without any acute intracranial disease. Chest CT had bilateral lower lobe pneumonia, minimal pneumonitis in the right upper lobe. Extremity venous studies did not have any lower extremity DVT. Chest x- ray on August 19 had improved left lower lobe pneumonia. Electrocardiogram on presentation had sinus tachycardia, ST wave abnormality suggestive of inferolateral ischemia. EKG on August 17 had atrial fibrillation with rapid ventricular response. Electrocardiogram on August 18 had normal sinus rhythm and nonspecific T-wave abnormalities. ST depression was decreased. Echocardiogram on August 17 was a difficult study to interpret but there was grossly normal left ventricular systolic function without any obvious regional wall abnormality. HOSPITAL COURSE SUMMARY: Ms. Del Toro is a 74-year-old, lady with a past medical history of hypertension, hyperlipidemia, diabetes mellitus type 2, hypothyroidism, chronic GERD, bilateral blindness, prior history of smoking, who was brought from the intermediate with chief complaints of shortness of breath and acute encephalopathy. When the EMS arrived to the intermediate, she was found to have oxygen saturation in the 60s so a nonrebreather mask was applied and oxygen saturation had increased to 80s, and she was brought to the emergency room. In the emergency room, she had temperature of 98.1 degrees, pulse 112, respiratory rate 32, blood pressure of 110/41, and she was saturating 90% on a 100% nonrebreather mask. She was given a dose of intravenous Lasix, intravenous antibiotics, started on BiPAP. Hospitalist team was consulted for further management. She was kept on BiPAP overnight and slowly was able to be transitioned to a Ventimask and later on simple nasal cannula. She was started on broad-spectrum intravenous antibiotics. Chest CT had detected bilateral lower lobe pneumonia. With at least 4 to 5 days of intravenous antibiotics, her clinical condition had improved and her chest x-ray suggested improvement so her antibiotics will be changed to oral and she will be discharged to rehab. While inside the hospital, she did have an episode of atrial fibrillation with rapid ventricular response which required intravenous diltiazem bolus and occasional intravenous metoprolol, following which she had converted to normal sinus rhythm. Since it was just a one-time episode of atrial fibrillation in the setting of hypoxic respiratory failure, it was decided to not keep her on long-term anticoagulation. She should have outpatient followup with her regular provider and discuss about need for long-term anticoagulation. At the time of discharge, she is hemodynamically stable and is ready to be discharged. Plan of care during the hospitalization was discussed with the patient's son at bedside multiple times. All of his questions were answered. Thirty five minutes were spent discharging this patient. cc: Fausto Crabtree MD MTDD
[2019-08-20 15:35] VITALS: BP 138/47
== END 2019-08-20 19:30 | DRG 189 ==
LOC: ED 14:06 → 2N 18:32
PROVIDERS: ATTEND Internal Medicine

== ENCOUNTER 2019-08-27 09:33 | Inpatient (IN) ==
--- NOTE | 2019-08-27 09:59 | Diag Imaging Result Doc PS360 ---
EXAM: CHEST-1 VIEW HISTORY: pneumonia TECHNIQUE: Single view COMPARISON: 08/19/2019 FINDINGS: Poor inspiratory effort. Infiltrates and atelectasis remain in the left base. There is a small left pleural effusion. The heart is mildly enlarged. There are small infiltrates in the medial right base. IMPRESSION: No interval improvement Electronically signed by Johnnie Bhardwaj 08/27/2019 9:57 AM
--- NOTE | 2019-08-27 10:10 | EKG Report ---
Test Performed on : 08/27/2019 10:00:33 AM Test Reason : sob Blood Pressure : / mmHG Vent. Rate : 077 BPM Atrial Rate : 077 BPM P-R Int : 146 ms QRS Dur : 110 ms QT Int : 372 ms P-R-T Axes : -25 -04 139 degrees QTc Int : 420 ms Normal sinus rhythm. Minimal voltage criteria for LVH, may be normal variant Nonspecific ST and T wave abnormality Abnormal ECG When compared with ECG of 18-AUG-2019 11:28, No significant change was found Unconfirmed Result
[2019-08-27 10:34] LABS: BASO# 0.02 X1000 (0.0-0.2); BASO% 0.2 % (0.0-0.8); EOS# 0.04 X1000 (0.0-0.7); EOS% 0.5 % (0.0-10.0); HEMATOCRIT 38.7 % (37.0-47.0); HEMOGLOBIN 11.7 g/dL (12.0-16.0); IMM GRAN# 0.05 X1000 (0.0-0.04); IMM GRAN% 0.6 % (0.0-0.5); LYMPH# 1.26 X1000 (1.2-3.4); LYMPH% 14.9 % (20.5-51.1); MCH 29.9 PG (27-31); MCHC 30.2 g/dL (33-37); MONO# 0.71 X1000 (0.11-0.59); MONO% 8.4 % (1.7-9.3); MPV 9.6 FL (7.4-10.4); NEUT# 6.35 X1000 (1.4-6.5); NEUT% 75.4 % (42.2-75.2); PLT 438 X1000 (130-400); RBC 3.91 XMIL (4.2-5.4); RDW 16.4 % (11.5-14.5); WBC 8.43 X1000 (4.8-10.8)
[2019-08-27 10:52] LABS: INR 1.09; PROTIME 14.2 Seconds (11.0-16.0); PTT 29.7 Seconds (22.3-41.8)
[2019-08-27 10:54] LABS: AGAP 15; ALB/GLOB RATIO 0.7; ALBUMIN 2.7 g/dL (3.5-5.0); ALKALINE PHOSPHATASE 49 U/L (32-104); BUN 20 mg/dL (8-22); CALCIUM 9.2 mg/dL (8.8-10.2); CHLORIDE 96 mmol/L (98-107); COSMO 288; CREATININE 0.6 mg/dL (0.5-0.9); ESTIMATED GFR > 60; GLUCOSE 102 mg/dL (70-104); GOT 16 U/L (10-30); GPT 9 U/L (10-36); SODIUM 143 mmol/L (136-145); TCO2 32 mmol/L (25-35); TOTAL BILIRUBIN 0.53 mg/dL (0.20-1.00); TOTAL PROTEIN 6.4 g/dL (6.3-8.3)
[2019-08-27] MEDS ORDERED: POTASSIUM CHLORIDE 40 MEQ in NS 1,000 ML IV ONE (12:02)
--- NOTE | 2019-08-27 12:14 | PROVIDER DOCUMENTATION ---
This chart was entered by Daja Valenzuela Scribe, acting as scribe for Mohinder Cisneros MD. HPI-Respiratory General - General Stated Complaint: PNA Time Seen by Provider: 08/27/19 09:39 Source: EMS Allergies/Adverse Reactions: Patient Allergies Allergy/AdvReac Type Severity Reaction Status Date / Time cephalexin monohydrate * Allergy Unknown Unknown Verified 08/16/19 15:53 [From Keflex] chlordiazepoxide HCl * Allergy Unknown Unknown Verified 08/16/19 15:53 [From Librium] codeine [Codeine] Allergy Unknown Unknown Verified 08/16/19 15:53 Iodinated Contrast Media Allergy Unknown Unknown Verified 08/16/19 15:53 [Iodinated Contrast Media - IV Dye] levofloxacin [From Levaquin] Allergy Unknown Unknown Verified 08/16/19 15:53 Sulfa (Sulfonamide Allergy Unknown Unknown Verified 08/16/19 15:53 Antibiotics) [Sulfa(Sulfonamide Antibiotics)] sulfamethoxazole Allergy Unknown Unknown Verified 08/16/19 15:53 [From Bactrim] trimethoprim [From Bactrim] Allergy Unknown Unknown Verified 08/16/19 15:53 Home Medications: Home Medication List Medication Instructions Recorded Confirmed Last Taken Type Dicyclomine [Bentyl] 20 mg PO TID 06/30/12 08/27/19 08/26/19 20:00 History Levothyroxine [Synthroid] 100 microgm PO QAM 06/30/12 08/27/19 08/27/19 05:00 History Omeprazole 40 mg PO BID #60 capsule. 10/07/16 08/27/19 08/26/19 20:00 Rx Duloxetine HCl 60 mg PO DAILY 08/16/19 08/27/19 08/26/19 08:00 History Metoclopramide HCl 10 mg PO BID 08/16/19 08/27/19 08/26/19 20:00 History Valproic Acid (As Sodium Salt) 10 ml PO BID 08/16/19 08/27/19 08/26/19 20:00 History [Valproic Acid] ATORVAstatin [Lipitor] 40 mg PO QHS tab 08/20/19 08/27/19 08/26/19 20:00 Rx Alprazolam [Xanax] 1 mg PO BID #8 tab 08/20/19 08/27/19 08/26/19 20:00 Rx Oxycodone HCl/Acetaminophen 1 ea PO BID #5 tab 08/20/19 08/27/19 08/26/19 20:00 Rx [Percocet 5-325 mg Tablet] Aspirin [Ecotrin] 325 mg PO DAILY 08/27/19 08/27/19 08/26/19 08:00 History Ipratropium/Albuterol Sulfate 3 ml INHALATION [id number] 08/27/19 08/27/19 08/26/19 20:00 History [Iprat-Albut 0.5-3(2.5) mg/3 ml] L.acidoph,Paracasei, B.lactis 1 ea PO DAILY 08/27/19 08/27/19 08/26/19 08:00 History [Probiotic] - History of Present Illness-Resp Nature of Presenting Problem: 74yof presents to ED from [facility] by EMS cc according to EMS respiratory distress with rate in the 30's and o2 84%on room air. EMS reports pt was recently dx with pneumonia and has been on ABT but is not responding to it. Pt is poor hx and only reports she is hurting all over. Pt is 'gurgly' upon exam. Severity in ED: reports: moderate Onset/Duration: reports: unsure Timing: reports: still present Current Respiratory Medication Therapy: Initiated see nurses note Associated Symptoms: reports: shortness of breath, short of breath Similar Symptoms Previously?: Yes Recently seen or treated by another doctor?: Yes (seen in ED 08/16/2019) Review of Systems - Adult - REVIEW OF SYSTEMS - ADULT ROS:: ROS per EMS Constitutional: reports: see HPI, fever, fatique Eyes: reports: no symptoms reported Ears, Nose, Mouth & Throat: reports: no symptoms reported Cardiovascular: reports: no symptoms reported Respiratory: reports: see HPI, shortness of breath Gastrointestinal: reports: no symptoms reported Genitourinary: reports: no symptoms reported Musculoskeletal: reports: no symptoms reported Integumentary: reports: no symptoms reported Neurological: reports: no symptoms reported Psychiatric: reports: no symptoms reported Endocrine: reports: no symptoms reported Hematologic/Lymphatic: reports: no symptoms reported Allergic/Immunologic: reports: no symptoms reported All Other Systems: Reviewed and Negative Past History - Adult - PAST MEDICAL HISTORY-ADULT Review of Records: reports: Nursing Assessment Review, Medications Reviewed, Social history reviewed & non-contributory. Major Childhood Illnesses: reports: denies history Cardiovascular: reports: CAD, HTN, hyperlipidemia Respiratory: reports: denies history Gastrointestinal: reports: GERD Obstetrical/Gynecological: reports: denies history Genitourinary: reports: kidney disease Musculoskeletal: reports: denies history Neurological: reports: dementia, other (blindness) Psychiatric: reports: anxiety Endocrine/Immune: reports: Diabetes, thyroid disorder Other Conditions: reports: denies history, blindness - PRIOR SURGERIES/PROCEDURES Surgical/Procedure History: reports: cholecystectomy, hernia repair, other (Heart cath 11/13 with no significant CAD (20-25%), corneal transplant). denies: cardiac stent - IMMUNIZATION STATUS Childhood Immunizations: See Nurse Assessment Flu Vaccine: See Nurse Assessment - FAMILY HISTORY Family History: reviewed, not pertinent Physical Exam-General - PHYSICAL EXAM-ADULT Initial Vital Signs Reviewed: Yes - CONSTITUTIONAL General Appearance: alert. negative: anxious - EYES Eyes: negative: PERRL/EOMI (blind in both eyes) - HEAD, EARS, NOSE, MOUTH & THROAT HENMT: moist mucous membranes - RESPIRATORY Respiratory: rhonchi (course, bilateral). negative: lungs clear - CARDIOVASCULAR Cardiovascular: normal peripheral pulses. negative: bradycardia, tachycardia - SKIN Integumentary: warm/dry. negative: jaundice - PSYCHIATRIC Psych/Mental Status: normal mood/affect. negative: anxious Progress - PLAN OF CARE/RESULTS Progress/Plan/Lab Results: Vital Signs - 8 hr 08/27/19 10:07 08/27/19 11:43 Temperature 99.1 F Pulse Rate 75 Respiratory Rate 24 Blood Pressure 101/63 O2 Sat by Pulse Oximetry 94 L 94 L Laboratory Results - last 24 hr 08/27/19 08/27/19 08/27/19 10:18 10:18 10:18 WBC RBC Hgb Hct MCV MCH MCHC RDW Std Deviation Plt Count MPV Immature Gran % (Auto) Neut % (Auto) Lymph % (Auto) [place] % (Auto) Eos % (Auto) Baso % (Auto) Immature Gran # (Auto) Neut # (Auto) Lymph # (Auto) [place] # (Auto) Eos # (Auto) Baso # (Auto) PT INR PTT (Actin FS) Sodium 143 Potassium 3.0 L Chloride 96 L Carbon Dioxide 32 Anion Gap 15 BUN 20 Creatinine 0.6 Estimated GFR/1.73 m2 > 60 BUN/Creatinine Ratio 33 Glucose 102 Calculated Osmolality 288 Calcium 9.2 Total Bilirubin 0.53 AST 16 ALT 9 L Alkaline Phosphatase 49 Creatine Kinase Troponin T High Sens 51 H Rcd-[id number]-[id number] Pept Total Protein 6.4 Albumin 2.7 L Globulin 3.7 Albumin/Globulin Ratio 0.7 Plasma Lactate 1.1 08/27/19 08/27/19 08/27/19 10:18 10:18 10:18 WBC 8.43 RBC 3.91 L Hgb 11.7 L Hct 38.7 MCV 99.0 MCH 29.9 MCHC 30.2 L RDW Std Deviation 16.4 H Plt Count 438 H MPV 9.6 Immature Gran % (Auto) 0.6 H Neut % (Auto) 75.4 H Lymph % (Auto) 14.9 L [place] % (Auto) 8.4 Eos % (Auto) 0.5 Baso % (Auto) 0.2 Immature Gran # (Auto) 0.05 H Neut # (Auto) 6.35 Lymph # (Auto) 1.26 [place] # (Auto) 0.71 H Eos # (Auto) 0.04 Baso # (Auto) 0.02 PT INR PTT (Actin FS) Sodium Potassium Chloride Carbon Dioxide Anion Gap BUN Creatinine Estimated GFR/1.73 m2 BUN/Creatinine Ratio Glucose Calculated Osmolality Calcium Total Bilirubin AST ALT Alkaline Phosphatase Creatine Kinase 50 Troponin T High Sens Wgl-A-Exctcdvegiy Pept 311 Total Protein Albumin Globulin Albumin/Globulin Ratio Plasma Lactate 08/27/19 10:28 WBC RBC Hgb Hct MCV MCH MCHC RDW Std Deviation Plt Count MPV Immature Gran % (Auto) Neut % (Auto) Lymph % (Auto) [place] % (Auto) Eos % (Auto) Baso % (Auto) Immature Gran # (Auto) Neut # (Auto) Lymph # (Auto) [place] # (Auto) Eos # (Auto) Baso # (Auto) PT 14.2 INR 1.09 PTT (Actin FS) 29.7 Sodium Potassium Chloride Carbon Dioxide Anion Gap BUN Creatinine Estimated GFR/1.73 m2 BUN/Creatinine Ratio Glucose Calculated Osmolality Calcium Total Bilirubin AST ALT Alkaline Phosphatase Creatine Kinase Troponin T High Sens Zyr-R-Rkugsuivvoc Pept Total Protein Albumin Globulin Albumin/Globulin Ratio Plasma Lactate Orders Category Date Time Status Cardiac Monitoring NOW Care 08/27/19 10:25 Active IV Insertion NOW Care 08/27/19 10:25 Completed NEWS Score >or=5:Order NEWS Bundle S.O. NOW Care 08/27/19 10:12 Active Notify Provider of NEWS Score NOW Care 08/27/19 10:25 Active CHEST-1 VIEW [RAD] Stat Exams 08/27/19 09:40 Completed ABG [RESP] Routine Lab 08/27/19 12:01 Ordered BLOOD CULTURE [BLDCUL] Stat Lab 08/27/19 10:15 Ordered BNP [PRO B-NATRIURETIC PEPTIDE] Stat Lab 08/27/19 10:18 Completed CBC WITH ELECTRONIC DIFF [HEME] Stat Lab 08/27/19 10:18 Completed CK PROFILE [SP CHEM] Stat Lab 08/27/19 10:18 Completed COMPREHENSIVE METABOLIC PANEL [CHEM] Stat Lab 08/27/19 10:18 Completed LACTATE, PLASMA [CHEM] Lab 08/27/19 13:30 Uncollected LACTATE, PLASMA [CHEM] Lab 08/27/19 16:30 Uncollected LACTATE, PLASMA [CHEM] Stat Lab 08/27/19 10:18 Completed PROTIME WITH INR [COAG] Stat Lab 08/27/19 10:28 Completed PTT [COAG] Stat Lab 08/27/19 10:28 Completed TROPONIN T HIGH SENSITIVITY Stat Lab 08/27/19 10:18 Completed URINALYSIS W/POSS RFLX CULT [URINALYSIS] Stat Lab 08/27/19 10:25 Uncollected 0.9% Sodium Chloride Inj [Ns] 1,000 ml Med 08/27/19 12:02 Active Potassium Chloride 40 meq IV 125 mls/hr O2 Per Protocol Stat Oth 08/27/19 10:25 Active EKG [EKG] Stat Ther 08/27/19 09:40 Draft Result Diagrams: 08/27/19 10:18 08/27/19 10:18 - EKG 1 Time of EKG reading by physician:: 10:00 EKG Read and Signed by:: Mohinder Cisneros EKG Interpretation (*Must complete 3 of following elements*): Abnormal Rate: 77 Rhythm: NSR QRS: LVH ST Wave: non-specific ST changes - XRAY 1 XRAY: Bilateral XRAY Study: Chest Impression: See EMR Report (IMPRESSION: No interval improvement Electronically signed by Johnnie Bhardwaj 08/27/2019 9:57 AM) - CONSULTS/PCP/HOSPITALIST Notification #1 *Consult/PCP/Hospitalist*: [employer] MANAGER for hospitalist Time Discussed: 12:14 Consult Disposition: Will see in ED, Admit Departure - Departure Date of Disposition Decision: 08/27/19 Time of Disposition Decision: 12:12 DIAGNOSIS: Pneumonia, Hypokalemia, Anemia, Respiratory distress, Hypoxia Disposition: ADMITTED INPATIENT 09 Certified Medical Emergency: Emergent Condition: Serious Referrals and Follow-Ups: Kaleb Langston MD [Primary Care Provider] - - Critical Care Note This patient required my direct & personal management of CC.: Yes Total Time (mins): 35 Critical Care Statement: This patient required my direct personal management to treat or rule out processes, the absence of which, could potentiallly result in sudden, clinically significant life or limb threatening deterioration. Attestation - Physician/ DOMENIC Attestation Patient care was provided by Advanced Practice Provider:: No The physician spent face to face time with patient:: Yes Advanced Practice Provider documentation review:: Supervising physician onsite and consulted in the evaluation and care of this patient. The physician did have a face to face encounter with the patient. This chart was documented by the indicated scribe, (Daja Valenzuela Scribe) and accurately reflects the services I performed and decisions made by me, Mohinder Cisneros MD, as attested by the provider's signature.
[2019-08-27] MEDS ORDERED: VANCOMYCIN 1 GM/NS 1 GM/250 ML IVPB IV ONE (12:16)
[2019-08-27 12:30] LABS: ALLEN TEST NO; BLOOD TYPE ARTERIAL; HCO3-(ACT) 34.3 mmoll (20.0-26.0); O2(CT) 16.7 mL/dL (15.0-23.0); O2HB 96.3 % (95.0-99.0); PCO2(98.6) 50 mmHg (35-45); PO2(98.6) 111 mmHg (60-100); SAMPLE BLOOD; SAO2 99.4 % (95.0-100.0); THB 12.2 g/dL (11.5-17.4); pH(98.6) 7.48 (7.35-7.45)
[2019-08-27 12:32] LABS: MODALITY NRB
[2019-08-27] MEDS ORDERED: ROCEPHIN 1 GM in NS 50 ML IV ONE (12:45)
[2019-08-27] MEDS ORDERED: NS 1,000 ML IV SCH (13:30)
[2019-08-27] MEDS ORDERED: ZITHROMAX 500 MG/NS 500 MG/250 ML IVPB IV SCH (13:45)
[2019-08-27 13:57] LABS: URINE SOURCE CATH
[2019-08-27] MEDS ORDERED: VANCOMYCIN IV PER PHARMACY MISC SCH (14:00)
[2019-08-27 14:06] LABS: BILIRUBIN URINE NEGATIVE (NEGATIVE); BLOOD URINE NEGATIVE (NEGATIVE); COLOR YELLOW; GLUCOSE URINE NEGATIVE (NEGATIVE); KETONE URINE NEGATIVE (NEGATIVE); LEUKOCYTES URINE NEGATIVE (NEGATIVE); NITRITE URINE NEGATIVE (NEGATIVE); PROTEIN URINE NEGATIVE (NEGATIVE); SP GRAVITY URINE 1.014; TURBIDITY URINE CLEAR (CLEAR); UR EPITHELIAL CELLS <10 /HPF (<10); URINE BACTERIA NEGATIVE /HPF; URINE RBC 20-40 /HPF (<10); URINE WBC <10 /HPF (<10); UROBILINOGEN URINE NORMAL (NORMAL)
--- NOTE | 2019-08-27 15:02 | HISTORY AND PHYSICAL ---
ADDENDUM: Patient seen and examined by me [id number]. All the laboratory, vital signs and images were reviewed. Apparently this patient was sent from [facility] due to hypoxemia and apparently the respiratory rate was in the 30s, she recently was discharged on 08/20/2019 to the rehab center due to acute hypoxemic respiratory failure, encephalopathy, bilateral lower lobe pneumonia, she also has a history of possible CA, dementia, bilateral blindness, chronic abdominal pain, hypothyroidism, chronic GERD, anxiety, she was discharged with antibiotics, doxycycline for 3 more days for the pneumonia. X-ray today showed poor inspiratory effort, infiltrates and atelectasis remained in the left base. There is small left pleural effusion. The heart is mildly enlarged and there is small infiltrate in the medial right base. I will put this patient on broad-spectrum antibiotics. She has bilateral rhonchi and crepitus mostly at the bases bilaterally, she seems to be short of breath, she is blind. She is following commands on and off for me is hard to understand what she says because she is talking really low. White blood cell count is normal. Hemoglobin seems to be stable. Platelet count is normal. She hypercarbic and apparently she was hypoxemic, the potassium level is low and she seems to be slightly dehydrated for me on my exam, she will receive some IV fluids. I will add potassium to her medications. She will be on broad-spectrum antibiotics, breathing treatment, CPT, incentive spirometer as well. I will ask for the swallow team to evaluate this patient and she will be placed on a pureed diet. Of course we are going to look for signs of aspiration. Patient will be transferred to the ICU. No family members at the bedside. I agree with the rest of the nurse practitioner's assessment and plan. It looks like the previous hospitalization this patient was full code a few days ago so I will continue with the same management. I will ask Palliative Care to evaluate this patient in the future to find out the goal of care with the family. Again I agree with the nurse practitioner's assessment and plan. cc: Rogelio Bacon MD
--- NOTE | 2019-08-27 15:11 | HISTORY AND PHYSICAL ---
PRIMARY CARE PROVIDER: Dr. Kaleb Langston. CHIEF COMPLAINT: Shortness of breath, altered mental status. HISTORY OF PRESENT ILLNESS: Ms. Jania Del Toro is a 74-year-old, female, who was most recently admitted on 08/16/2019 up until 08/20/2019, prior to transferring to [facility] She was treated for acute hypoxemic respiratory failure, encephalopathy, bibasilar pneumonia, atrial fibrillation with RVR, and a type 2 DC secondary to severe hypoxia. She was discharged with doxycycline 100 mg p.o. twice a day for 3 days. Unfortunately, prior to presenting, she developed sudden-onset shortness of breath, along with hypoxia. She is currently on 100% nonrebreather with mid-to-low 90s on her O2 saturations, and she is altered. Will admit to the ICU for closer observation. PAST MEDICAL HISTORY: 1. Anxiety. 2. Depression. 3. Dementia. 4. Hypertension. 5. Left eye blind. 6. Hyperlipidemia. 7. GERD. 8. Hypothyroidism. 9. Diabetes mellitus type 2. 10. CAD. PAST SURGICAL HISTORY: 1. Cholecystectomy. 2. Hernia repair. 3. Corneal transplant. SOCIAL HISTORY: Resident at [facility]. Former smoker. No alcohol or illicit drug use. FAMILY HISTORY: Reviewed and noncontributory. ALLERGIES: Keflex, Librium, codeine, iodine, Levaquin, and sulfa. HOME MEDICATIONS: 1. Bentyl 20 mg p.o. t.i.d. 2. Duloxetine 60 mg p.o. daily. 3. Aspirin 325 mg p.o. daily. 4. Albuterol/Atrovent 4 times a day. 5. Reglan 10 mg p.o. twice daily. 6. Probiotic once daily. 7. Synthroid 100 mcg p.o. daily. 8. Valproic acid p.o. twice daily. 9. Lipitor 40 mg p.o. nightly. 10. Omeprazole 40 mg p.o. twice daily. 11. Percocet 5 one tablet p.o. twice daily. 12. Xanax 1 mg p.o. twice daily. REVIEW OF SYSTEMS: Unable to obtain. PHYSICAL EXAMINATION: VITAL SIGNS: Temperature 99.1 degrees, heart rate 75, respiratory rate 24, blood pressure 101/63, O2 saturation 94% on 100% nonrebreather. GENERAL: Ms. Jania Del Toro is a 74-year-old, female. She is in no acute distress. Essentially nonverbal. HEENT: Left eye is white with no way of having a visual field. She is blind in that eye. Right eye is reactive. Unable to assess extraocular movements. Mucous membranes are dry. NECK: Trachea midline. CARDIOVASCULAR: S1, S2. Regular rate and rhythm. No rubs, gallops, murmurs. No lower extremity edema. There are +2 dorsalis and radial pulses. Negative for JVD or carotid bruits. PULMONARY: Clear to auscultation. Bilateral breath sounds, decreased in the bases. No accessory muscle use or work of breathing noted. GI: Soft, nontender, nondistended. Positive bowel sounds x4. EXTREMITIES: Moves all extremities with generalized weakness. NEUROLOGIC: Currently, is not verbally speaking and not following commands. SKIN: Warm, dry, intact. LABORATORY DATA: White blood cells 8000, hemoglobin 11, hematocrit 38, platelet count 438,000. INR is 1.09, PTT is 29.7. ABGs show pH 7.48, pCO2 of 50, PO2 of 111, bicarb 34, base excess 12, saturation 96%, lactate 1.09, and that was on a nonrebreather. Sodium 143, potassium 3.0, BUN 20, creatinine 0.6, glucose 102, calcium 9.2. Bilirubin 0.53, AST 16, ALT 9. CK 50. Troponin 51. ProBNP 311. Albumin is 2.7. Lactate 1.1. Urinalysis shows 20 to 40 red blood cells, otherwise negative. MICROBIOLOGY: Blood cultures have been ordered. IMAGING: Chest x-ray: No interval improvement. Still with bibasilar infiltrates. EKG: Sinus rhythm, rate 77, QTc is 420. ASSESSMENT AND PLAN: 1. Acute hypoxemic respiratory failure secondary to bibasilar pneumonia, currently on 100% nonrebreather. She was going to be placed on bilevel positive airway pressure. Nebulizers have been ordered, and Pulmonary consulted. 2. Bibasilar pneumonia. Antibiotic regimen is Merrem and vancomycin. 3. Encephalopathy with dementia. Currently, she is being nonverbal, not really following commands, but she will look at you or turn her head towards the speaker. 4. Anxiety and depression. Continue home medications. 5. Diabetes mellitus type 2. Swallow evaluation is being consulted to see if we can get her started on a diabetic diet. Currently, her glucose is 102. It does not really look like she has had any elevation in her blood glucose levels (rare). 6. Deep venous thrombosis prophylaxis. Sequential compression devices. Dictated by ANA Pérez for Rogelio Bacon MD cc: ANA Pérez MD
[2019-08-27] MEDS: DUONEB (A & A) INH SCH ×3 (15:54→23:05)
[2019-08-27] MEDS: BENTYL PO SCH (16:36)
[2019-08-27] MEDS: MERREM 1 GM in NS 50 ML IV SCH ×2 (16:36→22:30)
[2019-08-27] MEDS: PULMICORT INH SCH (19:50)
--- NOTE | 2019-08-27 20:48 | PULMONOLOGY CONSULTATION ---
DATE: 08/27/2019 REQUESTING CLINICIAN: Dr. Ivan. REASON FOR CONSULTATION: Respiratory failure on BiPAP. HISTORY OF PRESENT ILLNESS: Ms. Del Toro is a 74-[facility]-old [facility] patient who was treated and discharged from this hospital about 1 week ago with bibasilar pneumonia. Her comorbidities include dementia, diabetes mellitus, gastroesophageal reflux disease . The patient had a coag negative Staphylococcus identified in her blood but otherwise etiology for her pneumonia was not clear. She did undergo a CT scan 08/16/2019 which revealed consolidation in the lower lobes along with radiopaque changes in both lower lobes which was not present 11/04/2015. The patient was brought to the emergency room with audible rhonchi with acute hypoxemic respiratory failure. PAST MEDICAL HISTORY: 1. Dementia . 2. Anxiety/depressive disorder. 3. Blindness. 4. Diabetes mellitus. 5. Gastroesophageal reflux disease. 6. Hypothyroidism. 7. Coronary artery disease. 8. Status post cholecystectomy. 9. History of hernia repair. SOCIAL HISTORY: Patient lives in the [facility]. Prior tobacco use. FAMILY HISTORY: Noncontributory to current presentation. PHYSICAL EXAM: Reveals a 74-year-old female who does not answer questions. She is currently on a BiPAP. She appears older than her stated age of 74. Maximum temperature since admission 99.1 degrees, blood pressure 135/45, heart rate 72, respiratory rate 21, oxygen saturation 97%.HEENT: Pupils are equal and reactive. Oropharynx appears clear. Neck: Supple. Chest: Reveals rhonchi bilaterally with decreased breath sounds in both lung bases. Cardiac: Regular rate, normal S1, normal S2. Abdomen: Soft with diminished bowel sounds. Extremities: Reveal poor skin condition with weeping of the left arm. LABORATORIES: Chest x-ray reveals shallow inspiration with bibasilar infiltrates. White blood count 8.43, hemoglobin 11.7, platelet count 438,000. Sodium 143, potassium 3.0, chloride 96, bicarbonate 32, BUN 20, creatinine 0.6, glucose 102. Arterial blood gas reveals a pH 7.48, pCO2 of 50, PO2 of 111. IMPRESSION: A 74-year-old with 1. Acute hypoxemic respiratory failure. 2. Bibasilar pneumonia. Some of the findings on prior scan revealed radiopaque material in both lung bases which may be due to chronic aspiration. RECOMMENDATIONS: 1. Would maintain NPO status until pulmonary status improves. 2. Continue current antibiotic regimen. 3. BiPAP or non-rebreather as tolerated. 4. Recommend formal barium swallow prior to reinitiating food. 5. Recommend end of life discussion/palliative care as you have mentioned in your notes. cc: Milo Ferris MD
[2019-08-27] MEDS ORDERED: REGLAN PO SCH (21:00)
[2019-08-27] MEDS: DEPAKENE LIQUID PO SCH (21:31)
[2019-08-27] MEDS: PERCOCET-5 PO SCH (21:31)
[2019-08-27] MEDS: LIPITOR PO SCH (21:31)
[2019-08-27] MEDS: XANAX PO SCH (21:32)
[2019-08-27] MEDS: PRILOSEC PO SCH (21:32)
[2019-08-27] MEDS: NS + KCL 20 MEQ 1,000 ML IV SCH (22:30)
[2019-08-28] MEDS: DUONEB (A & A) INH SCH ×6 (03:41→23:32)
[2019-08-28 06:37] LABS: BASO# 0.01 X1000 (0.0-0.2); BASO% 0.2 % (0.0-0.8); EOS# 0.01 X1000 (0.0-0.7); EOS% 0.2 % (0.0-10.0); HEMATOCRIT 34.4 % (37.0-47.0); HEMOGLOBIN 10.3 g/dL (12.0-16.0); IMM GRAN# 0.03 X1000 (0.0-0.04); IMM GRAN% 0.5 % (0.0-0.5); LYMPH# 0.65 X1000 (1.2-3.4); LYMPH% 11.7 % (20.5-51.1); MCH 29.9 PG (27-31); MCHC 29.9 g/dL (33-37); MCV 99.7 FL (81-99); MONO# 0.55 X1000 (0.11-0.59); MONO% 9.9 % (1.7-9.3); MPV 9.9 FL (7.4-10.4); NEUT% 77.5 % (42.2-75.2); PLT 379 X1000 (130-400); RBC 3.45 XMIL (4.2-5.4); RDW 16.2 % (11.5-14.5); WBC 5.55 X1000 (4.8-10.8)
[2019-08-28] MEDS: SYNTHROID PO SCH (06:59)
[2019-08-28 07:13] LABS: AGAP 11; ALB/GLOB RATIO 0.7; ALBUMIN 2.3 g/dL (3.5-5.0); ALKALINE PHOSPHATASE 46 U/L (32-104); BUN 19 mg/dL (8-22); CALCIUM 8.6 mg/dL (8.8-10.2); CHLORIDE 104 mmol/L (98-107); COSMO 291; CREATININE 0.4 mg/dL (0.5-0.9); ESTIMATED GFR > 60; GLUCOSE 99 mg/dL (70-104); GOT 13 U/L (10-30); GPT 8 U/L (10-36); POTASSIUM 3.2 mmol/L (3.5-5.1); SODIUM 145 mmol/L (136-145); TCO2 30 mmol/L (25-35); TOTAL BILIRUBIN 0.39 mg/dL (0.20-1.00); TOTAL PROTEIN 5.7 g/dL (6.3-8.3)
[2019-08-28] MEDS: MERREM 1 GM in NS 50 ML IV SCH ×3 (07:18→23:53)
[2019-08-28] MEDS: NS + KCL 20 MEQ 1,000 ML IV SCH ×2 (07:18→21:35)
--- NOTE | 2019-08-28 07:53 | PROGRESS NOTE ---
DATE: 08/28/2019 SUBJECTIVE: The patient is resting in bed. She is sleepy, but arousable. She is not following commands today for me. She is using the BiPAP machine at this moment. Pending lab work. Will keep the patient n.p.o. until we can figured out if this patient is able to swallow by herself. Probably she is having some aspiration. OBJECTIVE: Vital Signs: Temperature 97.4 degrees, pulse 77, respiratory rate 23, blood pressure 136/45, oxygen saturation 98 on the BiPAP machine. HEENT: Head normocephalic. No trauma. She has some when looks like chronic eye changes. She is blind. Neck: Supple. No JVD. Central trachea. Chest: Decreased breath sounds globally with coarse breath sounds bilaterally and rhonchi bilaterally. Abdomen: Soft, nontender, nondistended. No hepatosplenomegaly. Extremities: No edema, no clubbing, no cyanosis. They are a little bit cold. Neurological: The patient is sleepy, but arousable. She is not following commands for me today. She is trying to talk, but it is hard to understand with the BiPAP machine. LABORATORY DATA: WBC 5.5, hemoglobin 10.3, hematocrit 34.4, platelets 379,000. Pending the rest of the laboratory. ASSESSMENT AND PLAN: 1. Acute hypoxemic respiratory failure, likely due to bibasilar pneumonia. Probably this is related to aspiration pneumonia. Recently, she was discharged from this hospital with pneumonia, and she apparently completed treatment at the rehab center. She is coming back again with respiratory failure. She does have bilateral infiltrates. We will continue with broad-spectrum antibiotics. We will continue with the same management right now. Pulmonary Department on board. 2. Bilateral lower lobe pneumonia. Continue with broad-spectrum antibiotics as above. 3. Encephalopathy in a patient with dementia. I am not quite sure about her baseline. She is trying to talk, but I cannot understand what she says. She is not following commands for me. 4. History of anxiety and depression. Continue home medication. 5. Type 2 diabetes. Continue sliding scale insulin and pattern of blood sugar. 6. History of hypertension. I do not see any blood pressure medication listed on her medication, but the blood pressure has been stable, so will monitor for now. 7. Gastroesophageal reflux disease. Continue proton pump inhibitors. 8. Hypothyroidism. She has been placed on levothyroxine by mouth, which I will continue. I will probably switch it to intravenous if she is not able to tolerate by mouth. 9. History of coronary artery disease. Aware. CRITICAL CARE TIME: 35 minutes. cc: Rogelio Bacon MD
[2019-08-28] MEDS: PULMICORT INH SCH ×2 (08:02→19:30)
[2019-08-28] MEDS: ASPIRIN EC PO SCH ×2 (08:19→10:32)
[2019-08-28] MEDS: BENTYL PO SCH ×4 (08:19→16:32)
[2019-08-28] MEDS: PRILOSEC PO SCH ×3 (08:20→20:35)
[2019-08-28] MEDS: PERCOCET-5 PO SCH ×2 (08:20→20:36)
[2019-08-28] MEDS: CYMBALTA PO SCH ×2 (08:20→10:23)
[2019-08-28] MEDS: XANAX PO SCH ×2 (08:20→20:35)
[2019-08-28] MEDS: DEPAKENE LIQUID PO SCH ×4 (08:20→20:36)
[2019-08-28] MEDS: CULTURELLE PO SCH ×2 (08:20→10:22)
[2019-08-28] MEDS: VANCOMYCIN 1.3 GM in NS 250 ML IV SCH (08:51)
--- NOTE | 2019-08-28 09:44 | Diag Imaging Result Doc PS360 ---
EXAM: CHEST-PORTABLE HISTORY: Pneumonia TECHNIQUE: Single view COMPARISON: 08-27-2019 FINDINGS: The lungs are well expanded. The heart is not enlarged. The vessels are not distended. There are infiltrates in the lower left lung which have decreased in size. No effusion identified. IMPRESSION: Interval improvement. Electronically signed by Johnnie Bhardwaj 08/28/2019 9:41 AM
[2019-08-28] MEDS ORDERED: ROCEPHIN 1 GM in NS 50 ML IV SCH (13:00)
--- NOTE | 2019-08-28 19:48 | PULMONOLOGY PROGRESS NOTE ---
DATE: 08/28/2019 SUBJECTIVE: The patient is more conversant this morning. She is asking for ice chips. OBJECTIVE: Vital Signs: The patient has been afebrile for the last 24 hours. Blood pressure 117/57, heart rate 71, respiratory rate 16, oxygen saturation 100% on 3 L nasal cannula. HEENT: Pupils are equal. She does not focus on examiner. Neck: Is supple. Chest: Reveals occasional rhonchi bilaterally. Cardiac exam: S1-S2. Abdomen: Is soft. Extremities: Reveal generalized edema and weeping. LABORATORIES: Chest x-ray reveals some improvement in the left base. Microbiology reveals no new data. White blood count 5.55, hemoglobin 10.3, platelet count 379,000. IMPRESSION: A 74-year-old with 1. Acute hypoxemic respiratory failure. 2. Aspiration pneumonia with evidence of prior aspiration of radio opaque material. PLAN: 1. Continue current antibiotics. 2. Continue bronchial hygiene. 3. Agree with palliative care discussions as you are doing. 4. Consider p.o. intake if she has been cleared by swallowing study. cc: Milo Ferris MD
[2019-08-28] MEDS: LIPITOR PO SCH (20:36)
[2019-08-29] MEDS: DUONEB (A & A) INH SCH ×6 (03:20→23:15)
[2019-08-29 04:39] LABS: ALLEN TEST YES; BE 5.1 mmoll (-3.0-3.0); BLOOD TYPE ARTERIAL; HCO3-(ACT) 28.9 mmoll (20.0-26.0); METHB 1.3 % (0.0-1.5); O2(CT) 15.4 mL/dL (15.0-23.0); PCO2(98.6) 44 mmHg (35-45); PO2(98.6) 80 mmHg (60-100); SAMPLE BLOOD; SAO2 97.7 % (95.0-100.0); THB 11.5 g/dL (11.5-17.4); pH(98.6) 7.44 (7.35-7.45)
[2019-08-29 04:44] LABS: MODALITY BI PAP
[2019-08-29] MEDS: MERREM 1 GM in NS 50 ML IV SCH ×3 (06:12→22:58)
[2019-08-29] MEDS: SYNTHROID PO SCH (06:13)
[2019-08-29 06:18] LABS: BASO# 0.02 X1000 (0.0-0.2); BASO% 0.5 % (0.0-0.8); EOS# 0.03 X1000 (0.0-0.7); EOS% 0.7 % (0.0-10.0); HEMATOCRIT 34.2 % (37.0-47.0); HEMOGLOBIN 10.2 g/dL (12.0-16.0); IMM GRAN# 0.04 X1000 (0.0-0.04); IMM GRAN% 0.9 % (0.0-0.5); LYMPH% 20.6 % (20.5-51.1); MCH 29.9 PG (27-31); MCHC 29.8 g/dL (33-37); MCV 100.3 FL (81-99); MONO# 0.43 X1000 (0.11-0.59); MONO% 9.9 % (1.7-9.3); MPV 10.2 FL (7.4-10.4); NEUT# 2.94 X1000 (1.4-6.5); NEUT% 67.4 % (42.2-75.2); PLT 373 X1000 (130-400); RBC 3.41 XMIL (4.2-5.4); WBC 4.36 X1000 (4.8-10.8)
[2019-08-29 06:40] LABS: AGAP 11; ALB/GLOB RATIO 0.7; ALBUMIN 2.3 g/dL (3.5-5.0); ALKALINE PHOSPHATASE 47 U/L (32-104); BUN 15 mg/dL (8-22); CALCIUM 8.6 mg/dL (8.8-10.2); CHLORIDE 109 mmol/L (98-107); COSMO 296; CREATININE 0.3 mg/dL (0.5-0.9); ESTIMATED GFR > 60; GLUCOSE 77 mg/dL (70-104); GOT 17 U/L (10-30); GPT 10 U/L (10-36); MAGNESIUM 1.8 mg/dL (1.5-2.7); PHOSPHORUS 2.4 mg/dL (2.7-4.5); POTASSIUM 3.4 mmol/L (3.5-5.1); SODIUM 149 mmol/L (136-145); TCO2 29 mmol/L (25-35); TOTAL BILIRUBIN 0.34 mg/dL (0.20-1.00); TOTAL PROTEIN 5.8 g/dL (6.3-8.3)
--- NOTE | 2019-08-29 06:40 | Diag Imaging Result Doc PS360 ---
CHEST-PORTABLE - 08/29/2019 INDICATION: dyspnea COMPARISON: 08/28/2019 FINDINGS: Stable patchy bibasilar infiltrates, nonspecific. No new infiltrates. Heart size is normal. No pneumothorax or large pleural effusion. IMPRESSION: No change in the bibasilar nonspecific infiltrates. Electronically signed by Ld Gallo 08/29/2019 6:37 AM
[2019-08-29 07:42] LABS: BANDS 2 % (0-1); EOS 2 % (1-10); LYMPHS 16 % (21-51); SEGS 66 % (42-75)
[2019-08-29] MEDS: D5W 1,000 ML IV SCH ×2 (07:45→20:09)
[2019-08-29] MEDS ORDERED: POTASSIUM PHOSPHATE 15 MMOL in NS 250 ML IV ONE (08:00)
[2019-08-29] MEDS: PULMICORT INH SCH ×2 (08:03→19:30)
--- NOTE | 2019-08-29 08:08 | PROGRESS NOTE ---
DATE: 08/29/2019 SUBJECTIVE: Patient is resting in bed. She is following commands for me. She was able to squeeze my hands. I do not know if she is oriented or not. I cannot understand what she says. She is severely weak. I will ask Physical Therapy to evaluate this patient and occupational therapy to see what they say. I requested again a swallow evaluation to evaluate this patient. She is hypernatremic, so I will put this patient on D5W and I will replace the potassium and phosphorus. Her prognosis is poor due to her multiple comorbidities and age. I am not quite sure if this patient is bed-bound or not, Pulmonary Department on board. We will continue to monitor. OBJECTIVE: Vital Signs: Temperature 98.1 degrees, pulse 70, respiratory rate 22, blood pressure 136/68, oxygen saturation 97% on the BiPAP machine. HEENT: Head normocephalic, no trauma, but she is blind. Neck: Supple. No JVD. Central trachea. Chest: Decreased breath sounds globally with coarse breath sounds bilaterally and some rhonchi bilaterally. Abdomen: Soft, nontender, nondistended. No hepatosplenomegaly. Extremities: No edema, no clubbing, no cyanosis. Neurological examination: The patient is sleepy, but arousable. She is following commands today for me. She was able to squeeze my hands upon command. She is trying to talk, but I cannot understand what she says. I removed the BiPAP machine and she seems to be tolerating the nasal cannula. LABORATORY: WBC 4.3, hemoglobin 10.2, hematocrit 34.2, platelets 273. Sodium 149, potassium 3.4, chloride 109, bicarbonate 29. BUN 15, creatinine 0.3, glucose 77, calcium 8.6, phosphorus 2.4, albumin 2.3. ASSESSMENT AND PLAN: 1. Acute hypoxemic respiratory failure likely due to bibasilar pneumonia. Likely this is related to aspiration pneumonia. Recently she was discharged from this hospital with pneumonia and apparently she completed treatment at the rehab center. She is coming back again with respiratory failure. She does have bilateral infiltrates. X-ray looks about the same compared with yesterday. Continue broad-spectrum antibiotics. Pulmonary Department on board. 2. Bilateral lower lobe pneumonia. Continue with broad-spectrum antibiotics. White blood cell count is normal. No fever. 3. Encephalopathy in a patient with dementia. I am not quite sure about her baseline. She is trying to talk; I cannot understand what she says. She is following commands for me today. 4. History of anxiety and depression. Aware. 5. Type 2 diabetes. Continue with same management for now. Actually, her blood sugar has been stable. 6. History of hypertension. I do not see any medication listed on her home medications. Blood pressure has been stable. We will continue to monitor this closely. 7. Hypernatremia. I will put this patient on D5W. 8. Hypokalemia with hypophosphatemia. I will replace both. 9. Hypothyroidism. I will continue with levothyroxine, and I will ask for a thyroid stimulating hormone level. 10. History of coronary artery disease. Aware. CRITICAL CARE TIME: 32 minutes. cc: Rogelio Bacon MD
[2019-08-29] MEDS: DEPAKENE LIQUID PO SCH ×2 (09:10→22:51)
[2019-08-29] MEDS: CYMBALTA PO SCH (09:14)
[2019-08-29] MEDS: ASPIRIN EC PO SCH (09:15)
[2019-08-29] MEDS: BENTYL PO SCH ×3 (09:16→17:02)
[2019-08-29] MEDS: PRILOSEC PO SCH ×2 (09:18→22:53)
[2019-08-29] MEDS: XANAX PO SCH ×2 (09:21→22:53)
[2019-08-29] MEDS: CULTURELLE PO SCH (09:21)
[2019-08-29] MEDS: PERCOCET-5 PO SCH ×2 (09:22→22:52)
[2019-08-29] MEDS: VANCOMYCIN 1.3 GM in NS 250 ML IV SCH (09:24)
--- NOTE | 2019-08-29 18:20 | PULMONOLOGY PROGRESS NOTE ---
DATE: 08/29/2019 SUBJECTIVE: The patient is arousable. She quickly drifts off back to sleep. She is not interactive. OBJECTIVE: The patient has been afebrile for the last 24 hours. Blood pressure 108/59, heart rate 73, respiratory rate 17, oxygen saturation 100%.HEENT: Pupils are equal, but poorly reactive. Oropharynx appears dry but clear. Neck: Supple. Chest: Reveals rhonchi bilaterally. Cardiac Exam: S1-S2. Abdomen: Soft with positive bowel sounds. Extremities: Without change. She has generalized edema and weeping. LABORATORIES: Microbiology is growing a gram-negative summer in the sputum. White blood count 4.36, hemoglobin 10.1, platelet count 373,000. Arterial blood gas reveals a pH 7.44, pCO2 44, pO2 of 80. Chest x-ray reveals bibasilar infiltrates without change. IMPRESSION: 74-year-old with 1. Acute hypoxemic respiratory failure. 2. Acute on chronic aspiration pneumonia. PLAN: 1. Continue current antibiotics. 2. Continue NPO status at this juncture at the recommendation of speech therapy. 3. Continue bronchial hygiene. 4. End of life discussions have been held. She will be allowed to have a natural . cc: Milo Ferris MD
[2019-08-29] MEDS: LIPITOR PO SCH ×2 (22:51→22:52)
[2019-08-30] MEDS: DUONEB (A & A) INH SCH ×6 (03:15→23:22)
[2019-08-30] MEDS: SYNTHROID PO SCH ×2 (06:42→09:20)
[2019-08-30] MEDS: MERREM 1 GM in NS 50 ML IV SCH (06:58)
[2019-08-30] MEDS: PULMICORT INH SCH ×2 (08:04→19:38)
[2019-08-30] MEDS: D5W 1,000 ML IV SCH (09:17)
[2019-08-30] MEDS: VANCOMYCIN 1.3 GM in NS 250 ML IV SCH (09:17)
[2019-08-30] MEDS: ASPIRIN EC PO SCH (09:18)
[2019-08-30] MEDS: CULTURELLE PO SCH (09:18)
[2019-08-30] MEDS: PRILOSEC PO SCH ×3 (09:18→20:21)
[2019-08-30] MEDS: CYMBALTA PO SCH (09:18)
[2019-08-30] MEDS: BENTYL PO SCH ×3 (09:19→19:07)
[2019-08-30] MEDS: PERCOCET-5 PO SCH ×2 (09:19→20:21)
[2019-08-30] MEDS: XANAX PO SCH (09:20)
[2019-08-30 09:21] LABS: BASO# 0.04 X1000 (0.0-0.2); BASO% 0.7 % (0.0-0.8); EOS# 0.04 X1000 (0.0-0.7); EOS% 0.7 % (0.0-10.0); HEMATOCRIT 35.2 % (37.0-47.0); HEMOGLOBIN 10.7 g/dL (12.0-16.0); IMM GRAN# 0.16 X1000 (0.0-0.04); IMM GRAN% 2.8 % (0.0-0.5); LYMPH# 1.32 X1000 (1.2-3.4); MCH 29.7 PG (27-31); MCHC 30.4 g/dL (33-37); MCV 97.8 FL (81-99); MONO# 0.77 X1000 (0.11-0.59); MONO% 13.4 % (1.7-9.3); MPV 8.7 FL (7.4-10.4); NEUT# 3.41 X1000 (1.4-6.5); NEUT% 59.4 % (42.2-75.2); PLT 358 X1000 (130-400); RDW 15.9 % (11.5-14.5); WBC 5.74 X1000 (4.8-10.8)
[2019-08-30 09:38] LABS: HEMOGLOBIN A1C 4.5 % (4.8-6.0)
[2019-08-30 10:46] LABS: AGAP 16; ALB/GLOB RATIO 0.5; ALBUMIN 1.9 g/dL (3.5-5.0); ALKALINE PHOSPHATASE 54 U/L (32-104); BUN 9 mg/dL (8-22); CHLORIDE 103 mmol/L (98-107); COSMO 279; CREATININE 0.4 mg/dL (0.5-0.9); ESTIMATED GFR > 60; GLUCOSE 83 mg/dL (70-104); GOT 18 U/L (10-30); GPT 14 U/L (10-36); POTASSIUM 3.1 mmol/L (3.5-5.1); SODIUM 141 mmol/L (136-145); TCO2 22 mmol/L (25-35); TOTAL PROTEIN 6.1 g/dL (6.3-8.3)
[2019-08-30] MEDS: DEPAKENE LIQUID PO SCH ×2 (11:22→20:21)
[2019-08-30] MEDS ORDERED: ROCEPHIN 2 GM in NS 50 ML IV ONE (12:36)
--- NOTE | 2019-08-30 13:06 | PROGRESS NOTE ---
DATE: 08/30/2019 SUBJECTIVE: I have seen and examined Ms. Del Toro today. Ms. Del Toro refers to be doing fair. She is currently on nasal cannula. Per the nursing staff, she seems to have failed her swallow evaluation yesterday so she is currently n.p.o. OBJECTIVELY: Vital signs: Blood pressure is 115/64, pulse of 60, respiration is 22, temperature is 97.8 degrees. General: Ms. Del Toro is a 74-year-old elderly female. She is in bed, no distress. HEENT: Mucosa is pink and moist. Anicteric. Acyanotic. Neck: Supple. Chest: Air entry is bilaterally reduced. I think there are a few crackles posteriorly. Cardiovascular: Regular rate and rhythm. Abdomen: Soft, distended but nontender. Bowel sounds present. Neck: Supple. There is a trace of JVD. Extremities: About 2+ pedal edema. Central nervous system: Patient is drowsy but easily arousable, will follow basic commands but is bilaterally blind. LABORATORY DATA: Has been reviewed. WBC is 5.74, hemoglobin is 10.7, platelet count of 358,000. Chemistry is also reviewed. A1c is 4.5. The patient's albumin is 1.9. IMAGING: Chest x-ray yesterday seems to show bibasilar nonspecific infiltrate. ASSESSMENT AND PLAN: 1. Acute hypoxemic respiratory failure. The patient's O2 saturation on admission was about 84%, is currently improved on supplemental oxygen. 2. Bilateral lower lobe pneumonia concerning for aspiration pneumonitis. The patient is on antibiotics. Sputum culture is positive for Klebsiella. We think that is probably the predominant bug for the pneumonia. We have scheduled down the antimicrobial coverage, changed it to Zosyn for that coverage and also for possible aspiration pneumonia. 3. Encephalopathy in patient with dementia. 4. Hypertension, controlled. 5. Hypothyroidism. We will continue with levothyroxine. 6. History of coronary artery disease. Aware. 7. Fluid overload with hypoalbuminemia. We will give the patient a couple doses of albumin with Lasix to address that. 8. Hypernatremia, resolved. The patient was on D5. I will discontinue this today since sodium has normalized and the patient is showing signs of fluid overload. 9. Nutritional support. Ms Del Toro is currently n.p.o. because she failed her swallow evaluation. We are going to put in an NG tube and enteral feed her and also get access to give her her chronic p.o. medications. cc: David Crooks MD
[2019-08-30] MEDS: ALBUMIN 25% IV SCH (13:14)
--- NOTE | 2019-08-30 13:17 | Diag Imaging Result Doc PS360 ---
EXAM: CHEST-PORTABLE 08/30/2019 HISTORY: NG tube placement TECHNIQUE: AP portable upright at 1307 COMMENT: There is an NG tube with its tip in the fundus of the stomach. There is consolidation in the retrocardiac left lower lobe and possible pleural effusion on the left. IMPRESSION: NG tube in the stomach. Electronically signed by Arnold Aguilar 08/30/2019 1:15 PM
[2019-08-30] MEDS: ZOSYN 3.375 GM in NS 50 ML IV SCH ×2 (13:30→20:00)
--- NOTE | 2019-08-30 19:22 | OPERATIVE NOTE ---
PROCEDURE DATE: 08/30/2019 PREOPERATIVE DIAGNOSIS: 1. Poor peripheral venous access. 2. Volume overload. 3. Bilateral lower lobe pneumonia. 4. Respiratory failure. POSTOPERATIVE DIAGNOSIS: 1. Poor peripheral venous access. 2. Volume overload. 3. Bilateral lower lobe pneumonia. 4. Respiratory failure. OPERATION: Ultrasound-guided central venous catheter placement. SURGEON: Hal Rivera MD. ESTIMATED BLOOD LOSS: Scant. COMPLICATIONS: None apparent. FINDINGS: Patent right internal jugular vein. TECHNIQUE: The patient was placed in Trendelenburg in her ICU bed. The right neck was prepped and draped in the usual sterile fashion. 1% lidocaine was used to anesthetize the skin over the vein. The right internal jugular vein was found with ultrasound. It was compressible, and patent, without thrombus. It was quite compressible. She appeared to have a very low central venous pressures. With some mild to moderate difficulty, we did access the internal jugular vein. A couple of times, the wire would not pass. However, on the third access, the wire did pass. It was dark nonpulsatile blood. The tract was dilated. A triple-lumen central venous catheter was passed over the wire into the vein via the Seldinger technique. The port was anchored to the skin with silk suture. Sterile dressing was applied. There were no apparent complications. cc: Hal Rivera MD
--- NOTE | 2019-08-30 19:49 | Diag Imaging Result Doc PS360 ---
EXAM: CHEST-PORTABLE INDICATION: central line placement TECHNIQUE: One view COMPARISON: 08/30/2019 FINDINGS: The feeding tube is in stable position. There has been interval placement of a right IJ line. The tip projects over the region of the atriocaval junction in the expected position. There is no evidence of pneumothorax postplacement. The chest is grossly stable, otherwise. IMPRESSION: Interval placement of right central line as described with no evidence of pneumothorax. Electronically signed by Nilton Ayala 08/30/2019 7:47 PM
[2019-08-30] MEDS: LIPITOR PO SCH (20:21)
[2019-08-30] MEDS: LASIX IV SCH (20:21)
--- NOTE | 2019-08-31 01:17 | PULMONOLOGY PROGRESS NOTE ---
DATE: 08/30/2019 SUBJECTIVE: Patient will respond to her name and to question. Responses cannot be interpreted. OBJECTIVE: Vital Signs: The patient has been afebrile for the last 24 hours. Blood pressure 115/64, heart rate 68, respiratory rate 22 oxygen 99% on 3 L per nasal cannula. HEENT: Pupils are equal but do not really react to light. Oropharynx appears clear but dry. Neck: Is supple. Chest: Reveals rhonchi bilaterally. Cardiac: S1, S2. Abdomen: Is soft with positive bowel sounds. Extremities: Revealed generalized edema with weeping. LABORATORIES: Chest x-ray reveals left lower lobe pneumonia with NG tube in good position. Microbiology reveals Klebsiella pneumonia. IMPRESSION: 1. Respiratory failure. 2. Dysphagia status post failed swallowing study. 3. Klebsiella pneumonia. Component of aspiration suspected. PLAN: 1. Agree with tube feeds as outlined per Dr. Crooks. 2. Continue current antibiotics. 3. Continue bronchial hygiene. 4. Agree with current resuscitation status which will allow patient to have a natural . cc: Milo Ferris MD
[2019-08-31] MEDS: ZOSYN 3.375 GM in NS 50 ML IV SCH ×5 (01:30→18:18)
[2019-08-31] MEDS: DUONEB (A & A) INH SCH ×6 (03:40→23:24)
[2019-08-31] MEDS: SYNTHROID PO SCH ×2 (05:56→06:00)
[2019-08-31 07:04] LABS: BASO# 0.03 X1000 (0.0-0.2); BASO% 0.9 % (0.0-0.8); EOS# 0.01 X1000 (0.0-0.7); EOS% 0.3 % (0.0-10.0); HEMATOCRIT 31.5 % (37.0-47.0); HEMOGLOBIN 9.6 g/dL (12.0-16.0); IMM GRAN# 0.12 X1000 (0.0-0.04); IMM GRAN% 3.7 % (0.0-0.5); LYMPH# 0.89 X1000 (1.2-3.4); LYMPH% 27.6 % (20.5-51.1); MCH 29.6 PG (27-31); MCHC 30.5 g/dL (33-37); MCV 97.2 FL (81-99); MONO# 0.35 X1000 (0.11-0.59); MONO% 10.9 % (1.7-9.3); MPV 10.3 FL (7.4-10.4); NEUT# 1.82 X1000 (1.4-6.5); NEUT% 56.6 % (42.2-75.2); PLT 318 X1000 (130-400); RBC 3.24 XMIL (4.2-5.4); RDW 15.6 % (11.5-14.5); WBC 3.22 X1000 (4.8-10.8)
--- NOTE | 2019-08-31 07:39 | EKG Report ---
Test Performed on : 08/30/2019 9:19:28 PM Test Reason : ICU. NO EKG ORDER FOR MUSE Blood Pressure : / mmHG Vent. Rate : 072 BPM Atrial Rate : 072 BPM P-R Int : 000 ms QRS Dur : 112 ms QT Int : 614 ms P-R-T Axes : 000 004 -18 degrees QTc Int : 672 ms Accelerated Junctional rhythm. Nonspecific T wave abnormality Abnormal ECG When compared with ECG of 27-AUG-2019 10:00, (Unconfirmed) Junctional rhythm. has replaced Sinus rhythm. Non-specific change in ST segment in Inferior leads ST no longer depressed in Lateral leads Nonspecific T wave abnormality now evident in Anterior leads QT has lengthened Confirmed by Rut Esteves MD ([id number]) on 08/31/2019 4:57:55 PM
[2019-08-31 07:54] LABS: AGAP 13; ALBUMIN 3.1 g/dL (3.5-5.0); ALKALINE PHOSPHATASE 43 U/L (32-104); BUN 6 mg/dL (8-22); CALCIUM 9.3 mg/dL (8.8-10.2); CHLORIDE 100 mmol/L (98-107); COSMO 288; CREATININE 0.4 mg/dL (0.5-0.9); ESTIMATED GFR > 60; GLUCOSE 66 mg/dL (70-104); GOT 15 U/L (10-30); GPT 11 U/L (10-36); SODIUM 147 mmol/L (136-145); TCO2 34 mmol/L (25-35); TOTAL BILIRUBIN 0.62 mg/dL (0.20-1.00); TOTAL PROTEIN 6.2 g/dL (6.3-8.3)
[2019-08-31 08:26] LABS: POTASSIUM 2.5 mmol/L (3.5-5.1)
[2019-08-31] MEDS: PULMICORT INH SCH ×2 (08:35→20:12)
[2019-08-31] MEDS ORDERED: ROCEPHIN 2 GM in NS 50 ML IV SCH (09:00)
[2019-08-31] MEDS: ALBUMIN 25% IV SCH (09:39)
[2019-08-31] MEDS: PRILOSEC PO SCH ×2 (09:40→20:40)
[2019-08-31] MEDS: DEPAKENE LIQUID PO SCH ×2 (09:40→20:39)
[2019-08-31] MEDS: PERCOCET-5 PO SCH ×2 (09:40→20:39)
[2019-08-31] MEDS: ASPIRIN PO SCH (09:40)
[2019-08-31] MEDS: CULTURELLE PO SCH (09:41)
[2019-08-31] MEDS: LASIX IV SCH (09:41)
[2019-08-31] MEDS: LOVENOX SUBQ SCH (09:41)
[2019-08-31] MEDS: BENTYL PO SCH ×3 (09:41→16:21)
[2019-08-31] MEDS: CYMBALTA PO SCH (09:42)
[2019-08-31] MEDS ORDERED: POTASSIUM CHLORIDE 40 MEQ/SWI 40 MEQ/100 ML IVPB IV ONE ×2 (11:25→23:51)
[2019-08-31 12:43] LABS: MAGNESIUM 1.6 mg/dL (1.5-2.7)
--- NOTE | 2019-08-31 13:41 | PROGRESS NOTE ---
DATE: 08/31/2019 SUBJECTIVE: I have seen and examined Ms. Del Toro today. Ms. Leslie continues to be in the ICU. She refers to be doing fair. No new complaints. She continues to be remarkably swollen. OBJECTIVE: Vital signs: Blood pressure is 118/47, pulse of 67, respirations 20, temperature is 97 degrees, patient is saturating 95% on 1 L. General: Ms. Del Toro is a 74-year-old elderly female. She is in bed. She does not seem to be in any cardiopulmonary distress. HEENT: Mucosa is pink and moist. Anicteric. Acyanotic. Neck: Supple. There is a right central IJ central line placed. Chest: Air entry is bilaterally reduced. A few crackles posteriorly. Cardiovascular: Regular rate and rhythm. Gastrointestinal: Abdomen is soft, is distended but nontender. Bowel sounds present. Extremities: About 1+ pedal edema in the lower extremity. There is mild edema on the upper thighs as well. Central nervous system: The patient is sleepy but easily arousable. Follows basic commands. She is bilaterally blind. Skin: Has multiple skin bruises. LABORATORY DATA: WBC is 3.3, hemoglobin is 9.6, platelet count of 318,000. Chemistry is also reviewed. Potassium is 2.5. Rest of chemistry is unremarkable. IMAGING STUDIES: None for today. INTAKE AND OUTPUT: Urine output was 2835. She is currently positive balance of 3498. CURRENT MEDICATIONS: Have all been reviewed. ASSESSMENT: 1. Acute hypoxemic respiratory failure, improving. Patient continues to be on supplemental oxygen. She is currently only on 2 L. 2. Bilateral lower lobe pneumonia concerning for aspiration pneumonitis. Patient is on antimicrobial coverage. Sputum culture was positive for Klebsiella. The patient is currently on Zosyn. 3. Encephalopathy in a patient with dementia, stable. 4. Hypertension, controlled. 5. Hypothyroidism. Patient is on levothyroxine. 6. Fluid overload with hypoalbuminemia. We will continue with the albumin infusion and Lasix. 7. Hypernatremia. This is being addressed with flushes with NG tube. 8. Nutritional support. Ms. Del Toro continues to be n.p.o. NG tube was put in yesterday. We are going to start her on tube feedings. Dietitian has been consulted for recommendations. PLAN: In general, I think Ms. Cleveland is fair, continues to be critically sick but stable. We are going to start her on tube feedings today. Continue with her medications through NG tube. We will replace her electrolytes and mineral abnormalities and re-evaluate her in the morning. cc: David Crooks MD MTDD
[2019-08-31] MEDS: TYLENOL PO PRN (16:21)
--- NOTE | 2019-08-31 18:18 | PULMONOLOGY PROGRESS NOTE ---
DATE: 08/31/2019 SUBJECTIVE: The patient opens her eyes to name called. She does withdraw from pain. She does move extremities at random. Speech is garbled. OBJECTIVE: Vital signs: Blood pressure is 112/46 with a heart rate of 64, respirations are 18 to 22, temperature is 98.2 degrees with O2 saturations 97 to 100 percent on 3 L nasal cannula. Eyes: Pupils are equal. They do not react to light. Sclerae are anicteric. HEENT: Head is normocephalic, atraumatic. Mucous membranes are dry. Neck: Is supple. Trachea midline. Cardiovascular: Regular rate and rhythm. S1 and S2 are appreciated. She has generalized body edema with weeping. Pulmonary: Breath sounds with rhonchi scattered throughout. Chest rises and falls symmetric with respiration. Gastrointestinal: Abdomen is soft with bowel sounds in all 4 quadrants. LABORATORY DATA: 1. WBC is 3.22, hemoglobin 9.6 with hematocrit 31.5, platelets of 318,000. Sodium 147, potassium 2.5, BUN is 6, creatinine 0.4 with a glucose of 66. Microbiology revealed Klebsiella pneumoniae. IMPRESSION: 1. Acute hypoxic Respiratory failure. 2. Dysphagia, status post failed swallowing study. 3. Klebsiella pneumonia with component of aspiration suspected. PLAN: 1. Continue tube feedings as per Dr. Crooks. 2. Continue current antibiotics. 3. Continue bronchial hygiene, bronchodilators. Dictated by ANA Guevara for Milo Ferris MD cc: ANA Guevara MD [facility]
[2019-08-31 18:52] LABS: AGAP 15; BUN 5 mg/dL (8-22); CALCIUM 9.2 mg/dL (8.8-10.2); CHLORIDE 97 mmol/L (98-107); COSMO 287; CREATININE 0.5 mg/dL (0.5-0.9); ESTIMATED GFR > 60; GLUCOSE 85 mg/dL (70-104); POTASSIUM 2.8 mmol/L (3.5-5.1); SODIUM 146 mmol/L (136-145); TCO2 34 mmol/L (25-35)
[2019-08-31] MEDS: LIPITOR PO SCH (20:40)
[2019-08-31] MEDS ORDERED: LEVOPHED 8 MG in D5 1/2 NS 250 ML IV SCH (23:45)
[2019-08-31] MEDS ORDERED: CALCIUM CHLORIDE 1 GM in NS 100 ML IV ONE (23:50)
[2019-09-01] MEDS: ZOSYN 3.375 GM in NS 50 ML IV SCH ×2 (01:08→06:03)
[2019-09-01] MEDS: DUONEB (A & A) INH SCH ×6 (03:59→23:24)
[2019-09-01] MEDS ORDERED: BLISTEX MEDICATED BERRY LIP BALM TOP ONE (04:17)
[2019-09-01 05:04] LABS: BASO# 0.02 X1000 (0.0-0.2); BASO% 0.6 % (0.0-0.8); EOS# 0.04 X1000 (0.0-0.7); EOS% 1.3 % (0.0-10.0); HEMATOCRIT 31.6 % (37.0-47.0); HEMOGLOBIN 9.5 g/dL (12.0-16.0); IMM GRAN# 0.12 X1000 (0.0-0.04); IMM GRAN% 3.8 % (0.0-0.5); LYMPH# 0.77 X1000 (1.2-3.4); LYMPH% 24.5 % (20.5-51.1); MCH 29.3 PG (27-31); MCHC 30.1 g/dL (33-37); MCV 97.5 FL (81-99); MONO# 0.36 X1000 (0.11-0.59); MONO% 11.5 % (1.7-9.3); MPV 8.7 FL (7.4-10.4); NEUT# 1.83 X1000 (1.4-6.5); NEUT% 58.3 % (42.2-75.2); PLT 285 X1000 (130-400); RBC 3.24 XMIL (4.2-5.4); RDW 15.8 % (11.5-14.5); WBC 3.14 X1000 (4.8-10.8)
[2019-09-01 05:38] LABS: MAGNESIUM 1.7 mg/dL (1.5-2.7); PHOSPHORUS 2.3 mg/dL (2.7-4.5)
[2019-09-01 06:03] LABS: AGAP 11; ALB/GLOB RATIO 1.1; ALBUMIN 3.4 g/dL (3.5-5.0); ALKALINE PHOSPHATASE 53 U/L (32-104); BUN 4 mg/dL (8-22); CALCIUM 10.2 mg/dL (8.8-10.2); CHLORIDE 102 mmol/L (98-107); COSMO 291; CREATININE 0.5 mg/dL (0.5-0.9); ESTIMATED GFR > 60; GLUCOSE 94 mg/dL (70-104); GOT 15 U/L (10-30); GPT 8 U/L (10-36); POTASSIUM 3.3 mmol/L (3.5-5.1); SODIUM 148 mmol/L (136-145); TCO2 35 mmol/L (25-35); TOTAL PROTEIN 6.5 g/dL (6.3-8.3)
[2019-09-01] MEDS: SYNTHROID PO SCH (06:03)
[2019-09-01] MEDS: PULMICORT INH SCH ×2 (07:51→19:55)
[2019-09-01] MEDS: ALBUMIN 25% IV SCH (08:38)
[2019-09-01] MEDS: DEPAKENE LIQUID PO SCH ×2 (08:42→21:20)
[2019-09-01] MEDS: PERCOCET-5 PO SCH ×2 (08:43→21:20)
[2019-09-01] MEDS: PRILOSEC PO SCH (08:43)
[2019-09-01] MEDS: CYMBALTA PO SCH (08:43)
[2019-09-01] MEDS: ASPIRIN PO SCH (08:44)
[2019-09-01] MEDS: BENTYL PO SCH (08:44)
[2019-09-01] MEDS: LOVENOX SUBQ SCH (08:44)
[2019-09-01] MEDS: CULTURELLE PO SCH (08:44)
--- NOTE | 2019-09-01 09:26 | Diag Imaging Result Doc PS360 ---
EXAM: CHEST-PORTABLE HISTORY: dyspnea TECHNIQUE: Single view COMPARISON: 08/30/2019 FINDINGS: No change in the right jugular line or the nasogastric tube. There are infiltrates and atelectasis in the left lower lobe with small left pleural effusion. Right lung remains clear. IMPRESSION: Mild interval worsening Electronically signed by Johnnie Bhardwaj 09/01/2019 9:23 AM
[2019-09-01] MEDS ORDERED: POTASSIUM PHOSPHATE 40 MEQ in NS 250 ML IV ONE (10:06)
[2019-09-01] MEDS ORDERED: VANCOMYCIN IV PER PHARMACY MISC SCH (10:15)
[2019-09-01] MEDS ORDERED: NS 500 ML ONE (10:17)
[2019-09-01] MEDS: NS 500 ML IV SCH (10:50)
[2019-09-01] MEDS: MERREM 500 MG in NS 50 ML IV SCH ×2 (10:55→17:28)
--- NOTE | 2019-09-01 11:18 | PROGRESS NOTE ---
DATE: 09/01/2019 SUBJECTIVE: This morning Ms. Leslie refers to be feeling the same, remarkably weak. She, I understand was groaning and moaning early on that she was hurting. She was given Percocet and at the time of the encounter she looks much more comfortable. Ms. Del Toro also had blood pressure issues over last night. I understand she was remarkably hypotensive at some point. Yesterday in the evening I spoke with the son who came to visit her. At this point he wanted the mom to be DNR level 1, but he still wanted every thing to be done in terms of therapeutic management. OBJECTIVE: Vital signs: Blood pressure is 124/44, pulse of 73, respirations 24, temperature 97.6 degrees. General: Ms. Del Toro is a 74-year-old elderly female. She is in bed no distress. HEENT: Mucosa is pink and moist. Anicteric. Acyanotic. Neck: Supple. I did not see any JVD. Chest: Good air entry bilateral. No crepitations. Cardiovascular: Regular rate and rhythm. GI: Abdomen soft, distended but nontender. Bowel sounds present. Extremities: Was no pedal edema. HOSPITAL ORDERLY: Patient is awake. Bilateral blind but follows basic commands. Skin: Has multiple bruises especially in the upper extremities and the anterior chest wall. LABORATORY DATA: WBC is 3.14, hemoglobin is 9.5, platelet count of 285,000. Chemistry is also reviewed. Sodium is 148, potassium is 3.3. DIAGNOSTIC STUDIES: Chest x-ray this morning shows mild interval worsening. There is atelectasis in the left lower lobe with small left pleural effusion. Right lung remains the same. ASSESSMENT: 1. Acute hypoxemic respiratory failure. The patient continues to be on supplemental oxygen. 2. Bilateral lower lobe pneumonia concerning for aspiration pneumonitis. The sputum culture was positive for Klebsiella. Patient is has been on Zosyn for 3 days. Unfortunately, she does not seems to show any improvement, so I am going to change to meropenem and add vancomycin just to make sure that there is no any other extended spectrum beta-lactamase pathogens and Methicillin resistant staphylococcus aureus that have gone complicate have added to the Klebsiella. 3. Altered mental status on presentation secondary to global encephalopathy with dementia. 4. Hypertension. 5. Hypothyroidism. Patient is on levothyroxine. 6. Fluid overload with hypoalbuminemia. Ms Del Toro fluid status seems to be currently volume depleted. She is not edematous. Her balance still shows a positive balance of 3880. She is still making adequate urine. We will check her CVP to see what that the central pressure is looking like. I am told her urine output has decreased over the course of this morning and also her blood pressures have been fairly low. We want to decide if she will state if she will need any fluid. 7. Hypernatremia, presumably diuretic induced. We will stop the Lasix. 8. Nutritional support patient is on tube feedings and seems to be tolerating that well. 9. Electrolyte abnormality including hypokalemia, hypophosphatemia we will replace. 10. Protein calorie malnutrition noted. In general, Ms. Del Toro continues to be critical. She run for most part low blood pressures overnight. She has been on Zosyn so going to change that to meropenem with vancomycin. We will also going to be checking on her CVP to make a decision if she needs fluid or not. We will discontinue the Lasix. cc: David Crooks MD
[2019-09-01] MEDS: VANCOMYCIN 1.3 GM in NS 250 ML IV SCH (11:57)
--- NOTE | 2019-09-01 12:21 | Diag Imaging Result Doc PS360 ---
EXAM: CHEST-PORTABLE HISTORY: NG tube placement TECHNIQUE: Single view COMPARISON: 8:54 AM FINDINGS: A different nasogastric tube has been placed. This overlies the esophagus and stomach and appears to be in good position. Electronically signed by Johnnie Bhardwaj 09/01/2019 12:18 PM
[2019-09-01 14:06] LABS: UR CREAT RANDOM 102.6 mg/dL (11-20)
--- NOTE | 2019-09-01 17:53 | PULMONOLOGY PROGRESS NOTE ---
DATE: 09/01/2019 SUBJECTIVE: Ms. Del Toro is lying in the bed on her right side. She does not respond to tactile stimulation. She withdraws from pain posturing. She moves extremities at random. OBJECTIVE: Blood pressure 120/40, with a heart rate of 76, respirations are 22, temperature is 97.6 degrees with O2 saturations are 98 to 100 percent on nasal cannula. HEENT: Head is normocephalic, atraumatic. Mucous membranes are dry. Neck: Is supple. Trachea midline. Cardiovascular: Regular rate and rhythm. S1, S2 appreciated. She has generalized body edema with weeping. Pulmonary breath sounds with rhonchi scattered throughout. Chest rises and falls symmetric with respiration. Gastrointestinal: Abdomen is soft with bowel sounds in all 4 quadrants. LABS: WBC is 3.1 with hemoglobin 9.5, hematocrit 31.6, platelets of 285,000. Sodium 148, potassium 3.3, BUN 4, creatinine 0.5 with a glucose of 94. IMPRESSION: This is a 74 -year-old female with: 1. Respiratory failure. 2. Dysphagia, status post felt swallowing study. 3. Klebsiella pneumoniae with a component of aspiration suspected. PLAN: 1. continue with tube feedings as per Dr. Crooks. 2. Continue supplemental oxygen. 3. Contend bronchial hygiene 4. Continue current antibiotics. Dictated by ANA Guevara for Milo Ferris MD cc: ANA Guevara MD [facility]
[2019-09-01] MEDS: LIPITOR PO SCH (21:19)
[2019-09-02] MEDS: MERREM 500 MG in NS 50 ML IV SCH ×3 (01:19→17:33)
[2019-09-02] MEDS: DUONEB (A & A) INH SCH ×6 (04:20→23:22)
[2019-09-02] MEDS: SYNTHROID PO SCH (06:17)
[2019-09-02 06:44] LABS: BASO# 0.01 X1000 (0.0-0.2); BASO% 0.3 % (0.0-0.8); EOS# 0.03 X1000 (0.0-0.7); EOS% 0.8 % (0.0-10.0); HEMATOCRIT 29.7 % (37.0-47.0); HEMOGLOBIN 8.9 g/dL (12.0-16.0); IMM GRAN% 5.6 % (0.0-0.5); LYMPH# 0.93 X1000 (1.2-3.4); LYMPH% 26.2 % (20.5-51.1); MCH 29.8 PG (27-31); MCV 99.3 FL (81-99); MONO# 0.36 X1000 (0.11-0.59); MONO% 10.1 % (1.7-9.3); MPV 10.2 FL (7.4-10.4); NEUT# 2.02 X1000 (1.4-6.5); PLT 235 X1000 (130-400); RBC 2.99 XMIL (4.2-5.4); RDW 16.4 % (11.5-14.5); WBC 3.55 X1000 (4.8-10.8)
[2019-09-02 07:26] LABS: AGAP 13; ALB/GLOB RATIO 1.3; ALBUMIN 3.5 g/dL (3.5-5.0); ALKALINE PHOSPHATASE 56 U/L (32-104); BUN 7 mg/dL (8-22); CALCIUM 9.5 mg/dL (8.8-10.2); CHLORIDE 103 mmol/L (98-107); COSMO 296; CREATININE 0.4 mg/dL (0.5-0.9); ESTIMATED GFR > 60; GLUCOSE 100 mg/dL (70-104); GOT 13 U/L (10-30); GPT 9 U/L (10-36); POTASSIUM 3.4 mmol/L (3.5-5.1); SODIUM 150 mmol/L (136-145); TCO2 34 mmol/L (25-35); TOTAL BILIRUBIN 0.56 mg/dL (0.20-1.00); TOTAL PROTEIN 6.1 g/dL (6.3-8.3)
[2019-09-02] MEDS: PULMICORT INH SCH ×2 (07:35→19:30)
[2019-09-02] MEDS: ALBUMIN 25% IV SCH (08:33)
[2019-09-02] MEDS: CULTURELLE PO SCH (08:36)
[2019-09-02] MEDS: CYMBALTA PO SCH (08:36)
[2019-09-02] MEDS: ASPIRIN PO SCH (08:36)
[2019-09-02] MEDS: LOVENOX SUBQ SCH (08:36)
[2019-09-02] MEDS: DEPAKENE LIQUID PO SCH ×2 (08:36→20:02)
[2019-09-02] MEDS: PERCOCET-5 PO SCH ×2 (08:37→20:01)
[2019-09-02 08:40] LABS: BANDS 4 % (0-1); LYMPHS 32 % (21-51); MONO 2 % (1-9); SEGS 56 % (42-75)
[2019-09-02 08:41] LABS: HYPOCHROM 1+
[2019-09-02] MEDS: D5W 1,000 ML IV SCH (08:48)
--- NOTE | 2019-09-02 10:05 | PROGRESS NOTE ---
DATE: 09/02/2019 SUBJECTIVE: This morning, Ms. Del Toro refers to be doing well. I understand early on she was cursing and yelling that she was hurting and that she needed her pain medications. At the time of the encounter, however, she was very calm. OBJECTIVE: Vital Signs: Blood pressure 126/64, pulse of 74, respirations 19, temperature 97.8 degrees. The patient was saturating 100%. General: Ms. Del Toro is a 74-year-old elderly female. She is in bed. She does not seem to be in any distress. She is still on supplemental oxygen. HEENT: Mucosa is pink and moist. Anicteric. Acyanotic. Neck: Supple. There is a right IJ central line in place. Chest: Good air entry bilaterally. I did not hear any crackles, crepitations, nor rhonchi. Cardiovascular: Regular rate and rhythm. No murmurs, no rubs, no gallops. Abdomen: Soft. Extremities: No pedal edema. 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 She is bilaterally blind. Follows basic commands. Skin: Patient has multiple bruises on the upper extremities and the anterior chest wall. I'S AND O'S: Urine output was 1950, currently positive balance of 4816. IMAGING STUDIES: Imaging study yesterday was for verification of the chest tube. LABORATORY STUDIES: So far blood cultures have been 48 hours negative. Sputum culture is Klebsiella pneumoniae. ASSESSMENT: 1. Acute hypoxemic respiratory failure. Patient continues to be on supplemental oxygen. 2. Bilateral lower lobe pneumonia with sputum positive for Klebsiella. The patient is on antimicrobial therapy. Meropenem and vancomycin were started yesterday. Today is day 1. 3. Altered mental status on presentation secondary to global encephalopathy with dementia. 4. Hypertension, controlled. 5. Hypothyroidism. 6. Hypernatremia, presumably from diuretic use. Lasix has been discontinued. Patient continues to be hyponatremic. We are going to start her on D5. 7. Electrolyte abnormality. We will continue to replace. 8. Protein calorie malnutrition. The patient is on tube feeding and is tolerating well. 9. Bilateral blindness noted. In general, I think Ms. Del Toro seems to be stable. She is currently on 2 L of nasal cannula and she is saturating well. We are going to continue with the current antimicrobial coverage. She has been started on gentle D5 to improve on her sodium. Lasix has been discontinued. She does not look volume overloaded anymore. We will repeat her chest x-ray tomorrow morning and we will potentially be able to transfer her to the medical floor tomorrow. cc: David Crooks MD
[2019-09-02 11:05] LABS: MAGNESIUM 1.7 mg/dL (1.5-2.7); PHOSPHORUS 2.9 mg/dL (2.7-4.5)
[2019-09-02] MEDS: NS 500 ML IV SCH (11:32)
[2019-09-02] MEDS: VANCOMYCIN 1.3 GM in NS 250 ML IV SCH (11:39)
--- NOTE | 2019-09-02 14:08 | PULMONOLOGY PROGRESS NOTE ---
DATE: 09/02/2019 SUBJECTIVE: Ms. Del Toro is resting quietly in the bed. She is calm at this time, she does mumble to her name being called. According to the staff earlier she was yelling and cursing stating that she was hurting. OBJECTIVE: Blood pressure is 114/56 with a heart rate of 76, respirations are 18 to 20, temperature is 99 degrees with O2 saturations 99 to 100 percent on 2 L nasal cannula.HEENT: Head is normocephalic, atraumatic. Mucous membranes are moist . Neck: Is supple with trachea midline. Cardiovascular: Regular rate and rhythm. No murmurs. S1 and S2 appreciated. Pulmonary: Breath sounds with rales scattered throughout. Chest rises and falls symmetric with respiration. Gastrointestinal: Abdomen soft, nondistended with bowel sounds in all 4 quadrants. Extremities: She has generalized body edema with weeping. LABS: WBC is 3.5 with hemoglobin 8.9, hematocrit 29.7 and platelets of 235,000. Sodium 150, potassium 3.4, BUN 7, creatinine 0.4 with a glucose of 100. IMPRESSION: This is a 74-year-old female with 1. Respiratory failure. 2. Dysphasia status post swallowing study. 3. Klebsiella pneumoniae bilateral lower lobe pneumonia. Continue Merrem and vancomycin. PLAN: 1. Continue tube feedings as per Dr. Crooks. 2. Continue supplemental oxygen . 3. Continue bronchial hygiene 4. Continue Merrem and vancomycin. Dictated by ANA Guevara for Milo Ferris MD cc: ANA Guevara MD [facility]
[2019-09-02] MEDS: LIPITOR PO SCH (20:01)
[2019-09-03] MEDS: MERREM 500 MG in NS 50 ML IV SCH ×3 (02:57→18:02)
[2019-09-03] MEDS: DUONEB (A & A) INH SCH ×5 (04:32→19:34)
[2019-09-03] MEDS: SYNTHROID PO SCH (06:09)
[2019-09-03] MEDS: D5W 1,000 ML IV SCH (06:09)
[2019-09-03 06:29] LABS: BASO% 0.5 % (0.0-0.8); HEMATOCRIT 28.5 % (37.0-47.0); HEMOGLOBIN 8.5 g/dL (12.0-16.0); IMM GRAN% 4.8 % (0.0-0.5); LYMPH% 21.9 % (20.5-51.1); MCH 29.6 PG (27-31); MCHC 29.8 g/dL (33-37); MCV 99.3 FL (81-99); MONO% 9.5 % (1.7-9.3); MPV 10.1 FL (7.4-10.4); NEUT# 2.62 X1000 (1.4-6.5); NEUT% 62.3 % (42.2-75.2); PLT 218 X1000 (130-400); RBC 2.87 XMIL (4.2-5.4); RDW 16.5 % (11.5-14.5)
[2019-09-03 06:30] LABS: BASO# 0.02 X1000 (0.0-0.2); EOS# 0.04 X1000 (0.0-0.7); LYMPH# 0.92 X1000 (1.2-3.4)
[2019-09-03 06:34] LABS: AGAP 10; ALB/GLOB RATIO 1.4; ALBUMIN 3.6 g/dL (3.5-5.0); ALKALINE PHOSPHATASE 71 U/L (32-104); BUN 10 mg/dL (8-22); CALCIUM 9.6 mg/dL (8.8-10.2); CHLORIDE 99 mmol/L (98-107); COSMO 283; CREATININE 0.3 mg/dL (0.5-0.9); ESTIMATED GFR > 60; GLUCOSE 111 mg/dL (70-104); GOT 18 U/L (10-30); GPT 10 U/L (10-36); POTASSIUM 3.7 mmol/L (3.5-5.1); SODIUM 142 mmol/L (136-145); TCO2 33 mmol/L (25-35); TOTAL BILIRUBIN 0.64 mg/dL (0.20-1.00); TOTAL PROTEIN 6.1 g/dL (6.3-8.3)
[2019-09-03] MEDS: PULMICORT INH SCH ×2 (07:30→19:34)
[2019-09-03 08:21] LABS: ANISOCYTOSIS 1+; LYMPHS 23 % (21-51); MONO 8 % (1-9); SEGS 69 % (42-75)
[2019-09-03] MEDS: CYMBALTA PO SCH (08:21)
[2019-09-03] MEDS: ASPIRIN PO SCH (08:21)
[2019-09-03] MEDS: PERCOCET-5 PO SCH ×2 (08:21→20:52)
[2019-09-03] MEDS: DEPAKENE LIQUID PO SCH ×2 (08:22→20:52)
[2019-09-03] MEDS: LOVENOX SUBQ SCH (08:22)
[2019-09-03] MEDS: CULTURELLE PO SCH (08:22)
[2019-09-03] MEDS: NS 500 ML IV SCH (09:16)
[2019-09-03] MEDS: VANCOMYCIN 1.3 GM in NS 250 ML IV SCH (11:27)
--- NOTE | 2019-09-03 13:14 | Diag Imaging Result Doc PS360 ---
EXAM: KUB ABDOMEN 09/03/2019 HISTORY: SBO TECHNIQUE: KUB COMMENT: The bowel gas pattern is nonspecific. The stomach is not distended. There is no evidence of organomegaly or mass. There is less colonic gas than on the previous study of 05/11/2011. IMPRESSION: Nonspecific abdomen. Electronically signed by Arnold Aguilar 09/03/2019 1:11 PM
--- NOTE | 2019-09-03 14:54 | PROGRESS NOTE ---
DATE: 09/03/2019 SUBJECTIVE: I have seen and examined Ms. Del Toro today. Ms. Del Toro is a 74-year-old, female. She refers to be doing well. Early on, the nurses were concerned that she has been very agitated and was yelling for something for pain. I also understand that she was evaluated again and she failed with her swallowing. OBJECTIVE: Vital Signs: Blood pressure is 118/56, pulse of 81, respirations are 22, temperature is 98.8. General Examination: Ms. Mattson is a 74-year-old, elderly, female. She is in bed. She is not in any cardiopulmonary distress. HEENT: Mucosa is pink and moist. Anicteric. Acyanotic. Neck: Supple. Chest: Clear to auscultation. No crepitations. No rhonchi. The patient has a right IJ central line. Cardiovascular: Regular rate and rhythm. No murmurs, no rubs, no gallops. GI: Abdomen was soft. Globally distended but nontender. Bowel sounds were present, slightly hypoactive. 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 She does have a resting tremor on the right upper extremity. Laboratory Data: WBCs 4.20, hemoglobin is 8.5, platelet count of 218,000. Chemistry is also reviewed. Sodium has normalized. Other electrolytes are within normal range. Blood cultures have been 5 days negative. A KUB this morning shows a nonspecific abdomen. ASSESSMENT: 1. Acute hypoxemic respiratory failure on presentation, improved. The patient continues to be on supplemental oxygen. She has been titrated down. 2. Klebsiella pneumoniae, pneumonia in the bilateral lower lobes. The patient continues to be on meropenem and vancomycin. Today is day 2. 3. Altered mental status on presentation, improved. 4. Hypothyroidism. We will continue with Synthroid. 5. Hypertension, controlled. 6. Hypernatremia, resolved. 7. Electrolyte abnormality. We will continue to replace. 8. Protein calorie malnutrition. Patient is currently on tube feedings. 9. Bilateral blindness noted. 10. Aspirations. Ms. Mattson has been evaluated multiple times. She seems to be continue aspirating whenever she gets a swallow test. She is currently on nasogastric tube. We are going to get gastroenterology to evaluate her for possible percutaneous endoscopic gastrostomy tube placement. cc: David Crooks MD
--- NOTE | 2019-09-03 17:11 | GASTROENTEROLOGY CONSULTATION ---
DATE: 09/03/2019 REASON FOR CONSULT: PEG tube placement. HISTORY OF PRESENT ILLNESS: Ms. Jania Del Toro is a 74-year-old female who has been in the ICU since 08/27/2019. The patient had come from [facility] with complaints of respiratory distress with a respiratory rate in the 30s and oxygen saturation of 81% on room air. The patient was also recently discharged from the hospital on 08/20. She was treated for acute hypoxemic respiratory failure, encephalopathy, bibasilar pneumonia, atrial fibrillation with RVR, type 2 diabetes, and type 2 IN secondary to severe hypoxia. The patient was sent home with doxycycline 100 mg p.o. twice a day for 3 days. The patient is currently back in the ICU. The patient is legally blind. She is on aspiration precautions. Speech evaluation was done at the bedside. The patient was asked to swallow. She was given some ice chips and water by a spoon with immediate wet cough observed. The patient was also given a bite of applesauce with increased oral prep time and wet cough observed. The patient remains at high aspiration risk. GI has been consulted for placement of the PEG tube. PAST MEDICAL HISTORY: Anxiety, depression, dementia, hypertension, blindness, hyperlipidemia, GERD, hypothyroidism, diabetes type 2, and CAD. PAST SURGICAL HISTORY: A cholecystectomy, hernia repair, and corneal transplant. SOCIAL HISTORY: The patient is a resident of [facility]. She denies any alcohol or illicit drugs, but she is a former smoker. FAMILY HISTORY: No significant GI malignancies. ALLERGIES: The patient is allergic to Keflex, Librium, codeine, iodine, Levaquin, and sulfa. HOME MEDICATIONS: Bentyl 20 mg p.o. 3 times a day, Synthroid 100 mcg p.o. daily, omeprazole 40 mg p.o. twice a day, Duloxetine HCL 60 mg p.o. daily, metoclopramide HCL 10 mg p.o. twice a day, valproic acid 10 mg p.o. twice a day, atorvastatin 40 mg p.o. at bedtime, oxycodone 1 mg p.o. twice a day, Xanax 1 mg p.o. twice a day, probiotics 1 capsule daily, albuterol 3 mL inhalation 4 times a day, aspirin 325 mg p.o. daily. REVIEW OF SYSTEMS: As per HPI. Otherwise, 12 point review of system, patient is blind and she is confused, unable to gather any information. PHYSICAL EXAMINATION: Vital Signs: Temperature 98.8 degrees, pulse 84, respirations 23, blood pressure 143/62, oxygen saturation 97% on 3 L nasal cannula. The patient's weight is 188 pounds. BMI is 29.4 kg/m2. General: Patient is confused but in no acute distress. HEENT: Patient is blind. Neck: Supple. Lungs: Mild wheezing heard in the anterior deleon. Cardiovascular: Regular rate and rhythm. Abdomen: Soft, nontender, nondistended. Active bowel sounds heard in all 4 quadrants. Extremities: No clubbing. No cyanosis. There is +1 pitting edema bilaterally. Neurological: Unable to assess the patient; she is confused. LABS: WBCs of 4.20, RBC 2.87, hemoglobin 8.5, hematocrit is 28.5, platelet count is 218,000. Sodium 142, potassium 3.7, chloride 99, carbon dioxide 33, anion gap 10, BUN 10, creatinine is 0.3, glucose 111, calcium 9.6, total bilirubin 0.64, AST 18, ALT 10, alkaline phosphatase 71, albumin is 3.6. Abdomen x-ray shown a nonspecific abdomen. IMPRESSIONS AND PLAN: - Oropharyngeal dysphagia - Acute hypoxic respiratory failure - Anemia, unspecified - Pneumonia - Protein calorie malnutrition - HTN PLAN: Ms. Del Toro is a 74-year-old female with a history of anxiety, depression, dementia, and blindness. GI has been consulted for a PEG tube placement. We plan to do the EGD with PEG placement tomorrow. The patient is currently receiving antibiotic, Merrem and vancomycin. She is currently on NG tube feedings with Glucerna at 45 mm/hour. Further plan of care will be based on the EGD with PEG placement tomorrow. We will continue to monitor the patient and follow the plan of care per PCP. This plan was discussed with Dr. Hernandez. Please call us with any further questions or concerns. Dictated by ANA Veras for Marcelo Hernandez MD Physician Attestation I have seen and examined the patient. I have discussed and reviewed the note by Kristen PEREZ and agree with findings and plan as documented. Will plan PEG tube given recurrent aspiration pneumonia and oropharyngeal dysphagia. [facility]
[2019-09-03] MEDS: LIPITOR PO SCH (20:53)
[2019-09-03] MEDS: DESYREL PO SCH (20:53)
[2019-09-03] MEDS: NEURONTIN PO SCH (20:53)
[2019-09-04] MEDS: MERREM 500 MG in NS 50 ML IV SCH ×3 (02:03→17:18)
[2019-09-04] MEDS: DUONEB (A & A) INH SCH ×6 (03:50→22:31)
[2019-09-04] MEDS: SYNTHROID PO SCH (06:07)
[2019-09-04] MEDS ORDERED: DIPRIVAN 1% ONE (06:18)
[2019-09-04 06:24] LABS: HEMATOCRIT 28.2 % (37.0-47.0); HEMOGLOBIN 8.8 g/dL (12.0-16.0); MCH 30.2 PG (27-31); MCHC 31.2 g/dL (33-37); MCV 96.9 FL (81-99); MPV 11.2 FL (7.4-10.4); RBC 2.91 XMIL (4.2-5.4); RDW 16.4 % (11.5-14.5); WBC 5.19 X1000 (4.8-10.8)
[2019-09-04 06:40] LABS: AGAP 9; ALBUMIN 3.2 g/dL (3.5-5.0); BUN 13 mg/dL (8-22); CHLORIDE 95 mmol/L (98-107); COSMO 266; CREATININE 0.4 mg/dL (0.5-0.9); ESTIMATED GFR > 60; GLUCOSE 86 mg/dL (70-104); PHOSPHORUS 2.8 mg/dL (2.7-4.5); POTASSIUM 4.1 mmol/L (3.5-5.1); SODIUM 133 mmol/L (136-145); TCO2 29 mmol/L (25-35)
--- NOTE | 2019-09-04 07:05 | PULMONOLOGY PROGRESS NOTE ---
DATE: 09/03/2019 SUBJECTIVE: The patient is arousable. She will not respond to questioning. OBJECTIVE: Vital Signs: The patient has been afebrile for the last 24 hours. Blood pressure 130/58, heart rate 85, respiratory rate 24, oxygen saturation 100% on 3 L per nasal cannula. HEENT: Pupils are equal and reactive. Oropharynx appears clear. Neck is supple. Chest reveals diminished breath sounds in both lung bases. Cardiac Examination: S1-S2. Abdomen is obese and soft. Extremities reveal generalized poor skin condition with thinning and weeping. Laboratories: Sodium 142, potassium 3.7, chloride 99, bicarbonate 33, BUN 10, creatinine 0.3. White blood count 4.20, hemoglobin 8.5, platelet count 218,000. Chest x-ray ordered for tomorrow. IMPRESSION: A 74-year-old with: 1. Acute hypoxemic respiratory failure. 2. Status post failed swallowing trials. 3. Klebsiella pneumonia. PLAN: 1. Continue current antibiotics. 2. Review for PEG tube noted. 3. Continue bronchial hygiene. 4. Agree with current resuscitation status. cc: Milo Ferris MD
[2019-09-04] MEDS: ASPIRIN PO SCH (08:18)
[2019-09-04] MEDS: CULTURELLE PO SCH (08:18)
[2019-09-04] MEDS: NEURONTIN PO SCH ×2 (08:19→20:40)
[2019-09-04] MEDS: DEPAKENE LIQUID PO SCH ×2 (08:19→20:40)
[2019-09-04] MEDS: PERCOCET-5 PO SCH ×2 (08:20→20:40)
[2019-09-04] MEDS: PULMICORT INH SCH ×2 (08:37→20:00)
--- NOTE | 2019-09-04 09:41 | ENDOSCOPY OPERATIVE NOTE ---
[facility] ENDOSCOPY OPERATIVE NOTE , EGD WITH PEG PROCEDURE REPORT EXAM DATE: 09/04/2019 PATIENT NAME: Jania Del Toro MR #: [id number] BIRTHDATE: 1945 ATTENDING: Marcelo Hernandez MD STATUS: inpatient CARTOGRAPHY TECHNICIAN: INDICATIONS: The patient is a 74 yr old female here for an EGD with PEG due to dysphagia, pharyngeal and PEG placement. PROCEDURE PERFORMED: EGD w/ percutaneous gastrostomy tube placement MEDICATIONS: Per Anesthesia TOPICAL ANESTHETIC: Xylocaine 1% CONSENT: The patient understands the risks and benefits of the procedure and understands that these r isks include, but are not limited to: sedation, allergic reaction, infection, perforation and/or bleeding. Alternative means of evaluation and treatment include, among others: physical exam, x-rays, and/or surgical intervention. The patient elects to proceed with this endoscopic procedure. HISTORY AND PHYSICAL: 09/04/2019 DESCRIPTION OF PROCEDURE: During pre-op preparation period all mechanical and medical equipment was c hecked for proper function. Hand hygiene and appropriate measures for infection prevention was taken. After the risks, benefits and alternatives of the procedure were thoroughly explained, Informed consent was verified, confirmed and timeout was successfully executed by the treatment team. The patient was anesthetized with topical anesthesia and the [id number]-[id number] ([id number]) endoscope was introduced through the mouth and advanced to the second portion of the duoden um. The instrument was slowly withdrawn as the mucosa was fully examined. ESOPHAGUS: The mucosa of the esophagus appeared normal. STOMACH: Mild gastritis (inflammation) was found in the entire examined stomach. DUODENUM: The duodenum was normal. The stomach was then inflated with air, and by a combination of transillumination and manual palpatio n, the site for the gastrostomy tube placement was selected and marked on the anterior abdominal wall. The skin of the a erior abdomen was surgically prepped and draped with sterile towels. Utilizing strict sterile technique, the selected site was then anesthetized with 1% xylocaine by inje ction into the skin and subcutaneous tissue. A 1 cm incision was made through the skin and subcutaneous tissue, and the needle/cannula assembly was then passed through the abdominal wall and through the anterior wall of the stomach, abiodun ntaining visualization with the endoscope. A snare device previously placed through the instrument channel wa s then opened and placed around the cannula, the needle was removed, and the insertion wire was passed through the brayden kashif and into the stomach lumen. The snare was then loosened from the cannula, and repositioned to snare the insertion wire. The snare was then pulled up to the endoscope distal tip, and the scope was then withdrawn bringing with it the snare and insertion wire. The insertion wire was then released from the snare, and then loop-attached to the Corey Cook 24 Fr gastrostomy tube. Using the "pull technique", the G-tube was then pulled into place by traction on the insertion wire a t the abdominal wall end. The G-tube insertion site was then cleansed once again, and the external bolster was placed over the tube to secure it to the abdominal wall at 3.5 cm from the skin. A sterile dressing was then applied , and the procedure terminated. Antibiotic ointment was applied to PEG site and site was cleaned and dressed. P EG to placement was confirmed endoscopically. Retroflexion was performed in the stomach and revealed no abnormalities. The gastroscope was then sl owly withdrawn and removed. ADVERSE EVENT: There were no complications. IMPRESSIONS: 1. The mucosa of the esophagus appeared normal 2. Gastritis (inflammation) was found in the entire examined stomach 3. The duodenum was normal RECOMMENDATIONS: PEG ok to use for water and meds Start tube feeds in 4 hours Monitor for fever and signs of bleeding Routine PEG care Change dressing daily GI to peform PEG check in AM REPEAT EXAM: Marcelo Hernandez MD eSigned: Marcelo Hernandez MD 09/04/2019 9:40 AM cc: CPT CODES: 03523 Upper gastrointestinal endoscopy including esophagus, stomach, and either the du odenum and/or jejunum as appropriate; with directed placement of percutaneous gastrostomy tube ICD CODES: 787.20 Dysphagia,unspecified 535.50 Unspecified gastritis and gastroduodenitis (without hemorrhage) The ICD and CPT codes recommended by this software are interpretations from the data that the [facility] staff has captured with the software. The verification of the translation of this report to the ICD and CPT co edil and modifiers is the sole responsibility of the health care institution and practicing physician where this report was generated. [employer] will not be held responsible for the validity of the ICD and CPT codes i ncluded on this report. AMA assumes no liability for data contained or not contained herein. CPT is a registered tra demark of the [employer]. PATIENT NAME: Jania Del Toro MR#: [id number]
[2019-09-04] MEDS: NS 500 ML IV SCH (10:45)
--- NOTE | 2019-09-04 12:42 | PROGRESS NOTE ---
DATE: 09/04/2019 SUBJECTIVE: I have seen and examined Ms. Del Toro today. Ms. Del Toro went for PEG tube placement this morning which was successfully done. Currently, she refers to be doing well. No new complaints. OBJECTIVE: Vital Signs: Blood pressure 140/117, pulse 82, respirations 22, and temperature is 97.5 degrees. General: Ms. Del Toro is a 74-year-old elderly female. She is in bed in no distress. HEENT: Mucosa is pink and moist. Anicteric. Acyanotic. Neck: Supple. There is a right IJ central line in place. Cardiovascular: Regular rate and rhythm. No murmurs, no rubs, no gallops. GI: Abdomen is soft and distended but nontender. Bowel sounds present. There is a newly inserted PEG tube in place. [employer]: Patient is awake, conversational, and bilaterally blind. LABORATORY DATA: WBC is up to 5.19, hemoglobin is 8.8, and platelet count of 205,000. Chemistry is also reviewed. Sodium is 133. Rest of chemistry is unremarkable. ASSESSMENT: 1. Acute hypoxemic respiratory failure on presentation improved. 2. Klebsiella pneumoniae and pneumonia in both lower lobes. We will continue with the current antibiotic coverage. The patient is on meropenem and vancomycin. Today is day 3. 3. Altered mental status on presentation improved. 4. Hypothyroidism. Patient is on Synthroid. 5. Hypernatremia resolved. 6. Bilateral blindness noted. 7. Aspirations. We will continue to observe aspiration precautions. Patient has just undergone PEG tube placement, and will start her tube feedings. PLAN: In general, I think Ms. Del Toro is doing well. She is successfully underwent the PEG tube placement. We will start using this in about 4 hours. I think once it started, and patient is tolerating her tube feedings, she will be okay. She will be a candidate for transfer to the floor later today or tomorrow morning. cc: David Crooks MD
[2019-09-04] MEDS: TYLENOL PO PRN (12:54)
[2019-09-04] MEDS: VANCOMYCIN 1.3 GM in NS 250 ML IV SCH (13:21)
[2019-09-04] MEDS: DESYREL PO SCH (20:40)
[2019-09-04] MEDS: LIPITOR PO SCH (20:40)
--- NOTE | 2019-09-04 22:27 | PULMONOLOGY PROGRESS NOTE ---
DATE: 09/04/2019 SUBJECTIVE: The patient is arousable and alert. She will answer questions. She reports she feels bad but cannot further specify. She had a PEG tube placed earlier today. OBJECTIVE: Vital Signs: The patient has been afebrile for the last 24 hours. Blood pressure 116/63, heart rate 89, respiratory rate 24, oxygen saturation 93%. HEENT: Patient is blind. Oropharynx appears dry. Neck: Supple. Chest: Reveals crackles in the lung bases. Cardiac exam: S1, S2. Abdomen: Soft. Extremities: Reveal 1 to 2+ upper and lower extremity edema with some weeping. LABORATORY DATA: White blood count 5.19, hemoglobin 8.8, platelet count 205,000. Sodium 133, potassium 4.1, chloride 95, bicarbonate 29, BUN 13, creatinine 0.4. IMPRESSION: A 74-year-old with: 1. Pneumonia. 2. Status post INCOMPLETE REPORT--DICTATION ENDS HERE. cc: Milo Ferris MD
[2019-09-05] MEDS: MERREM 500 MG in NS 50 ML IV SCH ×3 (02:39→16:23)
[2019-09-05] MEDS: DUONEB (A & A) INH SCH ×6 (03:27→22:51)
[2019-09-05] MEDS: TYLENOL PO PRN (06:04)
[2019-09-05] MEDS: SYNTHROID PO SCH (06:04)
[2019-09-05 06:53] LABS: AGAP 11; BUN 10 mg/dL (8-22); CALCIUM 10.3 mg/dL (8.8-10.2); CHLORIDE 97 mmol/L (98-107); COSMO 273; CREATININE 0.4 mg/dL (0.5-0.9); ESTIMATED GFR > 60; GLUCOSE 105 mg/dL (70-104); HEMATOCRIT 28.5 % (37.0-47.0); HEMOGLOBIN 8.9 g/dL (12.0-16.0); MCH 30.4 PG (27-31); MCHC 31.2 g/dL (33-37); MCV 97.3 FL (81-99); MPV 11.5 FL (7.4-10.4); PHOSPHORUS 3.6 mg/dL (2.7-4.5); POTASSIUM 4.4 mmol/L (3.5-5.1); RBC 2.93 XMIL (4.2-5.4); RDW 16.5 % (11.5-14.5); SODIUM 137 mmol/L (136-145); TCO2 29 mmol/L (25-35); WBC 5.92 X1000 (4.8-10.8)
[2019-09-05] MEDS: PULMICORT INH SCH ×2 (07:49→19:32)
--- NOTE | 2019-09-05 09:34 | PROGRESS NOTE ---
DATE: 09/05/2019 SUBJECTIVE: This morning Ms. Dykes refers to be doing okay. No new complaints. The patient has no acute changes overnight. OBJECTIVE: Vital Signs: Blood pressure 127/56, pulse of 88, respirations 22, temperature is 98 degrees. The patient is saturating 95%. General: Ms. Del Toro is a 74-year-old elderly female. She is in bed, in no distress. Mucosa is pink and moist. Anicteric. Acyanotic. Neck: Supple. There is a positive right IJ catheter. Chest: Good air entry bilaterally. No crepitations. No rhonchi. Cardiovascular: Regular rate and rhythm. No murmurs, no rubs, no gallops. Gastrointestinal: Abdomen is soft, nontender. Bowel sounds present. There is a newly inserted PEG tube in place. The site looks clean. Central Nervous System: The patient is awake, conversational, is bilaterally blind. LABORATORY DATA: WBC is 5.92, hemoglobin is 8.9, platelet count of 232. Chemistry is also reviewed, completely within normal range. IMAGING STUDIES: No imaging studies for today. ASSESSMENT AND PLAN: 1. Acute hypoxemic respiratory failure on presentation. Initially, Ms. Del Toro was on a BiPAP. This has slowly been titrating down. She is currently on room air. 2. Klebsiella pneumoniae pneumonia to both lower lobes. The patient is on meropenem and vancomycin. Today is day 4. 3. Altered mental status on presentation, improved. 4. Hypothyroidism. The patient is on Synthroid. 5. Electrolyte abnormality including hypernatremia, resolved. 6. Aspiration pneumonitis. Aspiration precautions will be observed all the time. 7. Status post percutaneous endoscopic gastrostomy tube placement with percutaneous endoscopic gastrostomy tube feedings. Dietitian is on board. The patient seems to be tolerating her feedings well. 8. Bilateral blindness, noted. SUMMARY: In general, I think Ms. Del Toro is stable. Vital signs are stable. She denies any new complaints. She is tolerating her tube feedings. We are going to transfer her from the ICU to the medical floor. We will discontinue the Hamlin catheter. We will also get physical therapy to start working with her, and hopefully get her to her rehab/longterm tomorrow. cc: David Crooks MD
[2019-09-05] MEDS: CULTURELLE PO SCH (09:42)
[2019-09-05] MEDS: DEPAKENE LIQUID PO SCH ×2 (09:42→20:04)
[2019-09-05] MEDS: ASPIRIN PO SCH (09:42)
[2019-09-05] MEDS: NEURONTIN PO SCH ×2 (09:42→20:05)
[2019-09-05] MEDS: LOVENOX SUBQ SCH (09:43)
[2019-09-05] MEDS: PERCOCET-5 PO SCH ×2 (09:43→20:05)
--- NOTE | 2019-09-05 11:33 | GASTROENTEROLOGY PROGRESS NOTE ---
DATE: 09/05/2019 SUBJECTIVE: Ms. Del Toro is 74-year-old female who is resting in bed. The patient is confused and is constantly mumbling. She has a PEG tube in place, which was done yesterday. The patient is receiving tube feeding Glucerna 1.5 Rodolfo at 50 mL/hour. The patient did have a couple of bowel movements yesterday. OBJECTIVE: Vital Signs: Temperature 98.0 degrees, pulse 90, respirations 20, blood pressure 123/59, oxygen saturation 95%. The patient is on room air. Her weight is 288 pounds. BMI is 45.3 kg/m2. General: Patient is awake but confused, unable to assess. HEENT: patient is blind. Neck: Supple. Lungs: Mild wheezing heard in the anterior deleon. Cardiovascular: Regular rate and rhythm. Abdomen: Soft, obese, nontender, nondistended. PEG tube in place with dressing dry and intact. Tube feeding going on. Active bowel sounds heard in all 4 quadrants. Extremities: No clubbing, no cyanosis. Generalized edema in the lower extremities. Neurologic: Unable to assess the patient. She is confused. LABS: WBCs are 5.92, RBC 2.93, hemoglobin 8.9, hematocrit 28.5, platelet count is 285. Sodium 137, potassium 4.4, chloride 97, carbon dioxide 29, anion gap 11. BUN 10, creatinine 0.4, glucose 105, calcium 10.3, phosphorus 3.6, albumin 3.0. IMPRESSION AND PLAN: 1. Oropharyngeal dysphagia s/p PEG placement 2. Acute hypoxic respiratory failure. 3. Anemia, unspecified. 4. Pneumonia. 5. Protein calorie malnutrition. 6. Hypertension. PLAN: Ms. Del Toro is a 74-year-old female with a history of anxiety, depression, dementia and blindness. She has been consulted for PEG tube placement. GI has been following her for PEG tube placement. We did an EGD with a PEG tube placement. Patient had gastritis in the entire stomach, and a PEG tube was placed. The patient is receiving PEG tube feeding with Glucerna 1.5 Rodolfo @ 50 mL/hour. The patient is tolerating tube feedings well. This plan was discussed with Dr. Hernandez. We will sign off for now. Please call us for any further questions or concerns. Dictated by ANA Veras for Marcelo Hernandez MD Physician Attestation I have seen and examined the patient. I have discussed and reviewed the note by Kristen PEREZ and agree with findings and plan as documented. PEG in place and functioning well. Continue routine PEG care. [employer] to manage tube feeds. Will sign off. Please call with questions. LD
[2019-09-05] MEDS: VANCOMYCIN 1.3 GM in NS 250 ML IV SCH (12:37)
[2019-09-05] MEDS: LIPITOR PO SCH (20:05)
[2019-09-05] MEDS: DESYREL PO SCH (20:05)
--- NOTE | 2019-09-05 22:49 | PULMONOLOGY PROGRESS NOTE ---
DATE: 09/05/2019 SUBJECTIVE: The patient is arousable. She reports she hurts all over. She does report her throat is dry. OBJECTIVE: Vital Signs: The patient has been afebrile for the last 24 hours. Blood pressure 151/60, heart rate 84, respiratory rate 19, oxygen saturation 99%. HEENT: Pupils are equal and reactive. Oropharynx appears dry but clear. Neck: Supple. Chest: Reveals crackles in the lung bases. Cardiac exam: S1, S2. Abdomen: Obese and soft. Extremities: Reveal generalized edema with thinning of the skin with bruising and some weeping noted on the left arm. LABORATORY DATA: White blood count 5.92, hemoglobin 8.9, platelet count 235,000. Sodium 137, potassium 4.4, chloride 97, bicarbonate 29, BUN 10, creatinine 0.4, glucose 105. IMPRESSION: A 74-year-old with: 1. Aspiration/Klebsiella pneumonia. 2. Hypoxemic respiratory failure. 3. PEG tube placement after failed swallowing trials. PLAN: 1. Okay for ice chips for comfort and for oral care. 2. Continue tube feedings. 3. Continue bronchial hygiene. 4. Continue antibiotics. 5. Agree with plans for transfer to the floor. cc: Milo Ferris MD
[2019-09-06] MEDS: DUONEB (A & A) INH SCH ×6 (03:41→22:57)
[2019-09-06] MEDS: SYNTHROID PO SCH (06:35)
[2019-09-06] MEDS: MERREM 500 MG in NS 50 ML IV SCH ×3 (06:40→23:32)
[2019-09-06] MEDS: PULMICORT INH SCH ×2 (07:41→19:16)
[2019-09-06] MEDS: DEPAKENE LIQUID PO SCH ×2 (08:32→20:55)
[2019-09-06] MEDS: LOVENOX SUBQ SCH (08:32)
[2019-09-06] MEDS: CULTURELLE PO SCH (08:33)
[2019-09-06] MEDS: ASPIRIN PO SCH (08:33)
[2019-09-06] MEDS: NEURONTIN PO SCH ×2 (08:33→20:56)
[2019-09-06] MEDS: PERCOCET-5 PO SCH ×2 (08:33→20:55)
[2019-09-06] MEDS: VANCOMYCIN 1.3 GM in NS 250 ML IV SCH (11:40)
[2019-09-06] MEDS ORDERED: LASIX IV ONE (12:28)
[2019-09-06 12:49] LABS: AGAP 11; ALB/GLOB RATIO 0.9; ALBUMIN 3.2 g/dL (3.5-5.0); ALKALINE PHOSPHATASE 89 U/L (32-104); BUN 14 mg/dL (8-22); CALCIUM 10.4 mg/dL (8.8-10.2); CHLORIDE 95 mmol/L (98-107); COSMO 271; CREATININE 0.4 mg/dL (0.5-0.9); ESTIMATED GFR > 60; GLUCOSE 110 mg/dL (70-104); GOT 28 U/L (10-30); GPT 17 U/L (10-36); POTASSIUM 4.8 mmol/L (3.5-5.1); SODIUM 135 mmol/L (136-145); TCO2 29 mmol/L (25-35); TOTAL PROTEIN 6.6 g/dL (6.3-8.3)
--- NOTE | 2019-09-06 12:55 | PROGRESS NOTE ---
DATE: 09/06/2019 SUBJECTIVE: I have seen and examined Ms. Del Toro today on the medical floor. Ms. Del Toro refers to be doing well but she is complaining of generalized pains. Per the nursing staff, she continues to request for her medication, despite that it has been given to her through the PEG tube. OBJECTIVE: Vital Signs: Blood pressure is 131/70, pulse of 82, respirations are 14, temperature is 98.2 degrees, patient is saturating 98%. General Examination: Ms. Del Toro is a 74-year-old, elderly, female. She is in bed. No distress. HEENT: Mucosa is pink and moist. Anicteric. Acyanotic. Neck: Supple. Chest: Good air entry bilaterally. A few crackles in the posterior lung deleon. Cardiovascular: Regular rate and rhythm. No murmurs, no rubs, no gallops. GI: Abdomen is soft, protuberant but nontender. There is a PEG tube in place. The site of insertion looks clean. DIRECTOR LEARNING: The patient is awake, alert, conversational, bilaterally blind. Musculoskeletal: On pedal edema, the patient has about 2+ pedal edema. There is also edema in the lateral aspect of the thighs and also the upper extremities. ASSESSMENT: 1. Acute hypoxemic respiratory failure on presentation, improved. 2. Klebsiella pneumoniae pneumonia associated with also aspiration pneumonitis. The patient was on meropenem and vancomycin. Today is day 5. Vancomycin has been discontinued. 3. Altered mental status on presentation, improved. 4. Hypothyroidism. We will continue with Synthroid. 5. Aspiration pneumonitis. 6. Status post percutaneous endoscopic gastrostomy tube placement. The patient is currently tolerating well her tube feedings. 7. Bilateral blindness noted. 8. Generalized pains and deconditioning. Physical therapy has been consulted. 9. Fluid overload, presumably from overhydration during the early stages of the hospital course. The patient is currently positive balance of [id number]. We will start her on gentle diuresis today. cc: David Crooks MD
[2019-09-06] MEDS: TYLENOL PO PRN (18:15)
[2019-09-06] MEDS ORDERED: DULCOLAX PR ONE (18:21)
[2019-09-06] MEDS: REGLAN IV SCH (18:39)
[2019-09-06] MEDS: DESYREL PO SCH (20:55)
[2019-09-06] MEDS: LIPITOR PO SCH (20:56)
[2019-09-07] MEDS: NS 500 ML IV SCH (01:58)
[2019-09-07] MEDS: REGLAN IV SCH ×2 (02:11→10:42)
[2019-09-07] MEDS: DUONEB (A & A) INH SCH ×3 (03:12→11:02)
--- NOTE | 2019-09-07 04:35 | PULMONOLOGY PROGRESS NOTE ---
DATE: 09/06/2019 SUBJECTIVE: The patient was sleeping but arousable on my evaluation. She has no increased work of breathing. She had no specific complaints. OBJECTIVE: Vital Signs: The patient has been afebrile for the last 24 hours. Blood pressure 118/72, heart rate 84, respiratory rate 14, oxygen saturation 96% on 2 L. HEENT: Pupils are equal and reactive. Oropharynx appears clear. Neck: Supple. Chest: Reveals occasional rhonchi bilaterally. Cardiac: S1-S2. Abdomen: Soft. Extremities: Generalized edema. LABORATORIES: Sodium 135, potassium 4.8, chloride 95, bicarbonate 29, BUN 14, creatinine 0.4. IMPRESSION: A 74-year-old with: 1. Klebsiella pneumonia/aspiration pneumonia. 2. Status post failed swallowing study. 3. Status post percutaneous endoscopic gastrostomy tube placement. 4. Blindness. 5. Generalized deconditioning. PLAN: 1. Continue current antibiotics. Clinically, she is improving and has received 6 doses of current antibiotic regimen. 2. Follow up chest x-ray tomorrow. 3. Anticipate transfer back to the half-way soon. cc: Milo Ferris MD
[2019-09-07] MEDS: SYNTHROID PO SCH (06:05)
[2019-09-07] MEDS: MERREM 500 MG in NS 50 ML IV SCH (06:05)
--- NOTE | 2019-09-07 07:02 | Diag Imaging Result Doc PS360 ---
EXAM: CHEST-PORTABLE HISTORY: dyspnea TECHNIQUE: Single view COMPARISON: 09/01/2019 FINDINGS: There is a right jugular portacatheter. Right lung is well expanded and clear. There are infiltrates in the mid left lung. Overall the infiltrates and atelectasis in the lower left lung are less pronounced. There may be a tiny left effusion. IMPRESSION: Interval improvement Electronically signed by Johnnie Bhardwaj 09/07/2019 6:59 AM
[2019-09-07] MEDS: PULMICORT INH SCH (07:46)
[2019-09-07] MEDS ORDERED: LASIX IV SCH (09:00)
[2019-09-07] MEDS: PERCOCET-5 PO SCH (10:42)
[2019-09-07] MEDS: NEURONTIN PO SCH (10:42)
[2019-09-07] MEDS: DEPAKENE LIQUID PO SCH (10:43)
[2019-09-07] MEDS: ASPIRIN PO SCH (10:43)
[2019-09-07] MEDS: LOVENOX SUBQ SCH (10:43)
[2019-09-07] MEDS: CULTURELLE PO SCH (10:43)
--- NOTE | 2019-09-07 12:14 | DISCHARGE SUMMARY ---
ADMISSION DATE: 08/27/2019 DISCHARGE DATE: 09/07/2019 DISPOSITION: Back to [facility]. CONSULTATIONS DURING THIS ADMISSION: 1. GI was consulted, the patient was seen by Dr. Hernandez. 2. Pulmonary Medicine was consulted, the patient was seen by Dr. Ferris. INVASIVE PROCEDURES DONE DURING THIS ADMISSION: Esophagogastroduodenoscopy with percutaneous endoscopic gastrostomy tube placement was done by Dr. Hernandez on 09/04/2019. ADMISSION DIAGNOSES: 1. Acute hypoxemic respiratory failure secondary to bibasilar pneumonia. 2. Encephalopathy with dementia. 3. Anxiety and depression. 4. Diabetes mellitus. DISCHARGE DIAGNOSES: 1. Acute hypoxemic respiratory failure, improved. 2. Klebsiella pneumoniae pneumonia associated with aspiration pneumonitis. 3. Altered mental status on presentation, improved. 4. Hypothyroidism. 5. Status post percutaneous endoscopic gastrostomy tube placement. 6. Bilateral blindness. 7. Generalized weakness and deconditioning. 8. Fluid overload, improved. DISCHARGE MEDICATIONS: 1. Omeprazole 40 mg b.i.d. 2. Duloxetine 60 mg p.o. daily. 3. Metoclopramide 10 mg b.i.d. 4. Valproic acid. 5. Atorvastatin 40 mg p.o. every night at bedtime. 6. Aspirin 325 p.o. daily. 7. Metronidazole 250 p.o. 3 times per day. 8. Cefdnir 300 b.i.d. 9. Synthroid 100 mcg p.o. daily. 10. Trazodone 50 mg p.o. every night at bedtime. 11. Neurontin 100 mg b.i.d. MEDICATIONS THAT HAVE BEEN DISCONTINUED: Oxycodone, alprazolam. The patient has been remarkably altered whenever she has been on these medications, even during the hospital course. PRESENTING COMPLAINT: Shortness of breath, altered mental status. HISTORY OF PRESENT COMPLAINT: Ms. Del Toro is a 74-year-old female who is a resident of [facility], who was brought in because she was having difficulty breathing and altered mental status. Upon presentation, she was evaluated and was found to have O2 saturation of 92%. It dropped down to somewhere around 88% at some point. The patient was started on a nonrebreather and BiPAP and was transferred to the ICU for critical care management. HOSPITAL COURSE: Ms Del Toro was seen about almost 1 week in the in the Critical Care. She was started on broad-spectrum IV antibiotics. Blood cultures came back 5 days negative. The sputum, however, did show Klebsiella pneumoniae. Ms. Del Toro's antibiotics were tailored towards the pathogen. During the hospital cause, she also did have hypernatremia, which was corrected. She was for the most part confused, especially whenever she got anything for pain or anything for sedation. Slowly though she became more alert when we withheld her Percocet and her benzodiazepines. She did, however, have multiple attempts at swallow evaluation and every attempt was a failure and there were aspirations. A decision was made to put in a PEG tube. GI was consulted. This was successfully done. She has been tolerating her PEG tube feeding, and she is going to be discharged to the [facility]. We have advised that we should stay away from opioids and benzodiazepines as much as we can since this could be contributing to her altered mental status that brought her in. TIME SPENT: The time spent for discharge was 35 minutes. cc: David Crooks MD MTDAmilcar
[2019-09-07 12:28] VITALS: BP 107/54
--- NOTE | 2019-09-07 23:32 | PROVIDER PROGRESS NOTE ---
Progress Note Dr. Dennison Progress Note/Pulmonary and or critical care Subjective: The patient is lying in bed on NC 2L. She is awake and alert. She states she is feeling fine and waiting to move to rehab. She has no complaint at this time. Objective: Vital Signs: T 97.8, BP 129/52, LA 86, RR 16 and SaO2 97% on NC 2L. Physical Examination: General: Morbidly obese. Lying in bed with no acute distress noted. HEENT: Normocephalic. Trachea midline. Puffy full don face. Blindness. Mucosa pink and moist. Chest: Even and unlabored. No increased work of breathing. Symmetrical excursin. Diminished air entry bilaterally. Extremities: Generalized edema. Fragile skin with multiple skin tears and bruises. Neuro: Awake and alert. Answer simple questions. Follow simple commands. Labs and Radiology: No lab today. Assessment: Klebsiella pneumonia +/- aspiration pneumonitis. s/p failed swallowing study s/p PEG tube placement on 09/04/19. Blindness. Generalized deconditioning. DNR 1. Plan: Continue antibiotics including Meropenem and Vancomycin, today is Day 6. Diuresis as tolerated. Advance PEG tube feeding per GI specialist. Discharge to SNF per Hospitalist.
== END 2019-09-07 14:47 | DRG 871 ==
LOC: SUPCPDRO → ED 09:33 → SUATTDRO 13:40 → ICU 13:40 → 1N 09-05 23:24
PROVIDERS: ATTEND Internal Medicine

== ENCOUNTER 2019-10-05 10:45 | Inpatient (IN) ==
--- NOTE | 2019-10-05 11:10 | EKG Report ---
Test Performed on : 10/05/2019 11:04:26 AM Test Reason : SOB Blood Pressure : / mmHG Vent. Rate : 096 BPM Atrial Rate : 096 BPM P-R Int : 160 ms QRS Dur : 088 ms QT Int : 342 ms P-R-T Axes : 055 010 100 degrees QTc Int : 432 ms Sinus rhythm. with occasional premature ventricular complexes. Possible Inferior infarct , age undetermined Abnormal ECG When compared with ECG of 30-AUG-2019 21:19, Sinus rhythm. has replaced Junctional rhythm. Questionable change in QRS duration Borderline criteria for Inferior infarct are now present Unconfirmed Result
--- NOTE | 2019-10-05 11:15 | Diag Imaging Result Doc PS360 ---
EXAM: CHEST-1 VIEW HISTORY: SOB TECHNIQUE: Single view COMPARISON: 09/07/2019 FINDINGS: The lungs are well expanded. The heart is not enlarged. The vessels are not distended. There continue to be decreased infiltrates in the left lung base. No effusion identified. IMPRESSION: Continued interval improvement Electronically signed by Johnnie Bhardwaj 10/05/2019 11:12 AM
[2019-10-05 11:16] LABS: ALLEN TEST YES; BE 9.8 mmoll (-3.0-3.0); BLOOD TYPE ARTERIAL; HCO3-(ACT) 32.5 mmoll (20.0-26.0); METHB 1.8 % (0.0-1.5); MODALITY CANNULA; O2(CT) 10.9 mL/dL (15.0-23.0); O2HB 93.3 % (95.0-99.0); PCO2(98.6) 46 mmHg (35-45); PO2(98.6) 76 mmHg (60-100); SAMPLE BLOOD; SAO2 97.8 % (95.0-100.0); THB 8.2 g/dL (11.5-17.4); pH(98.6) 7.48 (7.35-7.45)
[2019-10-05 12:14] LABS: INR 1.04; PROTIME 13.8 Seconds (11.0-16.0)
[2019-10-05 12:15] LABS: PTT 35.2 Seconds (22.3-41.8)
[2019-10-05 12:19] LABS: BASO# 0.04 X1000 (0.0-0.2); BASO% 0.2 % (0.0-0.8); EOS# 0.15 X1000 (0.0-0.7); EOS% 0.8 % (0.0-10.0); HEMATOCRIT 24.7 % (37.0-47.0); HEMOGLOBIN 7.3 g/dL (12.0-16.0); IMM GRAN# 0.05 X1000 (0.0-0.04); IMM GRAN% 0.3 % (0.0-0.5); LYMPH# 1.98 X1000 (1.2-3.4); LYMPH% 10.9 % (20.5-51.1); MCH 28.3 PG (27-31); MCHC 29.6 g/dL (33-37); MCV 95.7 FL (81-99); MONO# 1.75 X1000 (0.11-0.59); MONO% 9.6 % (1.7-9.3); NEUT# 14.25 X1000 (1.4-6.5); NEUT% 78.2 % (42.2-75.2); PLT 790 X1000 (130-400); RBC 2.58 XMIL (4.2-5.4); RDW 16.7 % (11.5-14.5); WBC 18.22 X1000 (4.8-10.8)
[2019-10-05 12:21] LABS: ESTIMATED GFR > 60
[2019-10-05 12:24] LABS: AGAP 11; ALB/GLOB RATIO 0.8; ALBUMIN 3.3 g/dL (3.5-5.0); ALKALINE PHOSPHATASE 70 U/L (32-104); BUN 28 mg/dL (8-22); CALCIUM 11.1 mg/dL (8.8-10.2); CHLORIDE 88 mmol/L (98-107); CK PROFILE 21 U/L (24-173); COSMO 270; CREATININE 0.6 mg/dL (0.5-0.9); GLUCOSE 136 mg/dL (70-104); GOT 13 U/L (10-30); GPT 12 U/L (10-36); POTASSIUM 5.2 mmol/L (3.5-5.1); SODIUM 131 mmol/L (136-145); TCO2 32 mmol/L (25-35); TOTAL BILIRUBIN 0.42 mg/dL (0.20-1.00); TOTAL PROTEIN 7.3 g/dL (6.3-8.3)
[2019-10-05 12:36] LABS: URINE SOURCE CATH
[2019-10-05 12:41] LABS: BILIRUBIN URINE NEGATIVE (NEGATIVE); BLOOD URINE NEGATIVE (NEGATIVE); COLOR YELLOW; GLUCOSE URINE NEGATIVE (NEGATIVE); KETONE URINE NEGATIVE (NEGATIVE); LEUKOCYTES URINE NEGATIVE (NEGATIVE); NITRITE URINE NEGATIVE (NEGATIVE); PH URINE 5.5; PROTEIN URINE TRACE mg/dL (NEGATIVE); SP GRAVITY URINE 1.022; TURBIDITY URINE CLEAR (CLEAR); UR EPITHELIAL CELLS <10 /HPF (<10); URINE BACTERIA 1+ /HPF; URINE RBC <10 /HPF (<10); URINE WBC <10 /HPF (<10); UROBILINOGEN URINE 2 mg/dL (NORMAL)
[2019-10-05 12:59] LABS: ANISOCYTOSIS 1+; BANDS 2 % (0-1); EOS 2 % (1-10); HYPOCHROM 2+; LARGE PLATELETS 1+; LYMPHS 10 % (21-51); MONO 2 % (1-9); SEGS 84 % (42-75)
[2019-10-05] MEDS ORDERED: NS 500 ML IV ONE ×2 (13:20)
[2019-10-05] MEDS ORDERED: NS 1,000 ML IV ONE (13:26)
[2019-10-05] MEDS ORDERED: VANCOMYCIN IV PER PHARMACY MISC SCH (13:30)
[2019-10-05] MEDS ORDERED: AZACTAM 1 GM in NS 50 ML IV ONE (14:00)
[2019-10-05 14:01] LABS: IRON SATURATION 9 %; TIBC 260 ug/dL; TOTAL IRON 24 ug/dL (49-151); UNBOUND IRON 236 ug/dL (112-346)
[2019-10-05] MEDS ORDERED: VANCOMYCIN 1,600 MG in NS 250 ML IV ONE (15:00)
[2019-10-05] MEDS ORDERED: ZOFRAN IV PRN (15:24)
[2019-10-05] MEDS ORDERED: HUMALOG SUBQ SCH (16:00)
[2019-10-05] MEDS: AZACTAM 1 GM in NS 50 ML IV SCH ×2 (16:10→23:26)
--- NOTE | 2019-10-05 16:25 | HISTORY AND PHYSICAL ---
PRIMARY CARE PROVIDER: Alex Fernandes. CHIEF COMPLAINT: Per ED record altered mental status, shortness of breath. HPI: Ms Del Toro is a 74-year-old female who is a long-term resident at [facility], they brought her in for altered mental status and respiratory failure. The patient had recently been admitted and discharged secondary to respiratory failure and aspiration pneumonia. Received a PEG tube currently has a portable DNAR, she has elevated white count, hemoglobin and hematocrit of 7 and 24 and elevated lactate. She will be admitted for probable aspiration pneumonia and sepsis and start her on broad-spectrum antibiotics. Will give her a liter of fluid, check a CT of her thorax, abdomen and pelvis. PAST MEDICAL HISTORY: Anxiety, depression, dementia, hypertension, left eye blindness, hyperlipidemia, GERD, hypothyroidism, diabetes mellitus type 2, coronary artery disease, status post PEG tube placement. PAST SURGICAL HISTORY: Recent placement of PEG tube, cholecystectomy, hernia repair, corneal transplant. SOCIAL HISTORY: Long-term resident of [facility]. Former smoker. No alcohol or illicit drug use. FAMILY HISTORY: Reviewed, noncontributory. ALLERGIES: Keflex, Librium, codeine, iodine, Levaquin and sulfa. CURRENT MEDICATIONS: Cymbalta, aspirin, Reglan, probiotic, valproic acid, Desyrel, Lipitor, Neurontin, Prilosec and Synthroid. REVIEW OF SYSTEMS: Hard to obtain secondary to the patient not being really responsive. She does somewhat withdraw from pain, she is a portable DNAR. Unsure of her baseline mentation. PHYSICAL EXAMINATION: VITAL SIGNS: Temperature is 98.7 degrees, heart rate 86, respirations in the 20s, blood pressure 167/87, O2 97% on 2 L nasal cannula. GENERAL: Ms. Del Toro is a 74 chronically ill-appearing female lying in the bed in no acute distress. HEENT: Atraumatic, normocephalic. Eyelids are crusted over. It was hard to open them to assess . Mucous membranes are dry. NECK: Supple, trachea midline. CARDIOVASCULAR: S1, S2 appreciated. Regular rate and rhythm. No murmurs, gallops or rubs noted. Bilateral pedal pulses are palpable. Minimal to trace edema. PULMONARY: Bilateral rales especially in the right lower base. GI: Appeared to be soft, nontender, nondistended, PEG tube in place, quiet bowel sounds 4 quads. EXTREMITIES: Patient was not really move any extremities. She did not follow any commands. NEUROLOGIC: She was not verbally speaking, did not follow any commands, did somewhat respond to painful stimuli. SKIN: Warm. She does have various areas on her upper extremities that could be some type of skin cancer, unsure what these lesions are possibly some breakdown on her bottom could see some redness coming around her Depend. This will need to be thoroughly assessed by nursing staff and document any breakdown present on arrival. LABORATORY DATA: White count 18, hemoglobin and hematocrit 7 and 24, platelet count is 790,000. Sodium 131, potassium 5.2, BUN 28, creatinine 0.6, blood glucose is 156, CK of 21, troponin of 55, albumin of 3.3, plasma lactate initially 2.7 now 3.1. ASSESSMENT AND PLAN: 1. Probable aspiration pneumonia secondary to tube feeds. Will place her on broad-spectrum antibiotics. The patient does live in a long-term care facility, she has multiple allergies. Will do vancomycin, PKS to dose and aztreonam. Check a CT of her chest, abdomen and pelvis. 2. Sepsis secondary to #1. Will give her a liter bolus. She does sound somewhat fluid volume overloaded. 3. Anemia. Will check anemia profile, type and screen, transfuse if needed. 4. Mild hyponatremia. Will recheck in the a.m. after IV fluids. 5. Mild hyperkalemia. Recheck in the a.m. 6. Anxiety, depression, dementia. 7. Bilateral blindness. 8. Diabetes mellitus type 2. Place on sliding scale with pattern blood sugars. 9. Portable do not attempt resuscitation. Continue with DNR 1 status, consult Palliative Care, as well as Director Safety Council. 10. Further recommendation to follow physician evaluation, laboratory and diagnostic data. Dictated by [facility] [place] for Rogelio Bacon MD cc: Rogelio Bacon MD [facility]
[2019-10-05] MEDS ORDERED: DUONEB (A & A) INH PRN (17:08)
--- NOTE | 2019-10-05 17:24 | Diag Imaging Result Doc PS360 ---
CT THORAX/ABD/PELVIS W/CON - 10/05/2019 INDICATION: ASP PNA, PEG TUBE FUNCTION COMPARISON: 08/16/2019, 11/04/2015 FINDINGS: CHEST: There is mild bilateral dependent opacity most compatible with atelectasis. Heart and great vessels are normal. No substantial infiltrates. The airways are clear. Bony structures are intact. Abdomen pelvis: There is a PEG tube in good position in the stomach. There is a benign right adnexal cyst measuring 4.5 x 2.6 cm. This was present previously. Stable right renal cyst and right renal cortical scarring. Stable cholecystectomy clips. Stable small bilateral adrenal nodules, benign. No bowel obstruction or inflammation. Normal appendix. No free air or free fluid. Urinary bladder is collapsed. Uterus and rectum are normal. Stable to slightly increased, extensive peripheral arterial disease of the pelvic and femoral arteries. There are moderate degenerative changes of the spine. No acute or suspicious bony lesion. IMPRESSION: 1. Significant dependent atelectasis bilaterally. No suspicious infiltrates. 2. No acute process in the abdomen or pelvis. This exam was performed using automated exposure control, adjustment of mA or kV according to patient size, and/or use of iterative reconstruction technique Electronically signed by Ld Gallo 10/05/2019 5:21 PM
[2019-10-05] MEDS: ZYVOX 600 MG/D5W 600 MG/300 ML IVPB IV SCH (17:50)
--- NOTE | 2019-10-05 18:05 | HISTORY AND PHYSICAL ---
ADDENDUM: The patient seen and examined by me face to face. All laboratory images and lab work have been reviewed. CT scan showed significant dependent atelectasis bilaterally. No suspicious infiltrates. She has wheezing bilaterally and she is not moving too much air. She is on oxygen right now, and I will put her on breathing treatment. I do not think she has a history of COPD, but she was recently discharged due to Klebsiella pneumonia associated with aspiration pneumonitis and acute respiratory failure. She is a DNR patient. She received some fluids. It looks like the feeding has been stopped. She is going to receive some blood because the hemoglobin is 7.3. Let us see how she does with that. Clinically she seems to be a little bit dehydrated. She has been placed on antibiotics. I will stop the vancomycin and change it to Zyvox. We asked for blood cultures and they have been already drawn. Hopefully with the breathing treatment she will get better as well as with the oxygen. Like I mentioned before, she is not moving too much air and she is wheezing bilaterally. ABG showed an increase on the pCO2, but is not that bad. It is 46, so will monitor for now. I agree with the rest of the nurse practitioner's assessment and plan. cc: Rogelio Bacon MD
[2019-10-05] MEDS: DEPAKENE LIQUID PO SCH (22:40)
[2019-10-05] MEDS: REGLAN PO SCH (22:41)
[2019-10-05] MEDS: NEURONTIN PO SCH ×2 (22:41→22:49)
[2019-10-05] MEDS: LIPITOR PO SCH (22:41)
[2019-10-05] MEDS: PRILOSEC PO SCH (22:41)
[2019-10-05] MEDS: DESYREL PO SCH ×2 (22:41→22:49)
[2019-10-06] MEDS: PRILOSEC PO SCH ×2 (06:11→21:01)
[2019-10-06] MEDS: ZYVOX 600 MG/D5W 600 MG/300 ML IVPB IV SCH ×2 (06:11→18:20)
[2019-10-06] MEDS: SYNTHROID PO SCH (06:12)
[2019-10-06 07:27] LABS: AGAP 10; ALB/GLOB RATIO 0.8; ALBUMIN 3.1 g/dL (3.5-5.0); ALKALINE PHOSPHATASE 64 U/L (32-104); BUN 21 mg/dL (8-22); CALCIUM 10.7 mg/dL (8.8-10.2); CHLORIDE 91 mmol/L (98-107); COSMO 267; CREATININE 0.5 mg/dL (0.5-0.9); ESTIMATED GFR > 60; GLUCOSE 127 mg/dL (70-104); GOT 12 U/L (10-30); GPT 10 U/L (10-36); MAGNESIUM 2.3 mg/dL (1.5-2.7); POTASSIUM 4.7 mmol/L (3.5-5.1); SODIUM 131 mmol/L (136-145); TCO2 30 mmol/L (25-35); TOTAL BILIRUBIN 0.42 mg/dL (0.20-1.00)
[2019-10-06 07:29] LABS: PHOSPHORUS 4.2 mg/dL (2.7-4.5); PREALBUMIN 12.2 mg/dL (20-40)
[2019-10-06 08:30] LABS: BASO# 0.08 X1000 (0.0-0.2); BASO% 0.7 % (0.0-0.8); EOS# 0.26 X1000 (0.0-0.7); EOS% 2.3 % (0.0-10.0); HEMATOCRIT 35.5 % (37.0-47.0); HEMOGLOBIN 11.2 g/dL (12.0-16.0); LYMPH# 2.05 X1000 (1.2-3.4); LYMPH% 18.3 % (20.5-51.1); MCH 28.1 PG (27-31); MCHC 31.5 g/dL (33-37); MONO# 1.13 X1000 (0.11-0.59); MONO% 10.1 % (1.7-9.3); MPV 9.4 FL (7.4-10.4); NEUT# 7.66 X1000 (1.4-6.5); NEUT% 68.6 % (42.2-75.2); PLT 477 X1000 (130-400); RBC 3.99 XMIL (4.2-5.4); RDW 17.8 % (11.5-14.5); WBC 11.18 X1000 (4.8-10.8)
[2019-10-06] MEDS: AZACTAM 1 GM in NS 50 ML IV SCH ×3 (09:28→23:35)
--- NOTE | 2019-10-06 09:40 | Diag Imaging Result Doc PS360 ---
CHEST-PORTABLE - 10/06/2019 INDICATION: follo wup COMPARISON: 10/05/2019 FINDINGS: There is no change from prior. IMPRESSION: No change from prior. Electronically signed by Ld Gallo 10/06/2019 9:38 AM
[2019-10-06] MEDS: REGLAN PO SCH ×2 (09:54→21:01)
[2019-10-06] MEDS: CYMBALTA PO SCH (09:54)
[2019-10-06] MEDS: DEPAKENE LIQUID PO SCH ×2 (09:54→21:00)
[2019-10-06] MEDS: CULTURELLE PO SCH (09:55)
[2019-10-06] MEDS: NEURONTIN PO SCH ×2 (09:55→21:00)
[2019-10-06 11:26] LABS: BASO# 0.04 X1000 (0.0-0.2); BASO% 0.3 % (0.0-0.8); EOS# 0.49 X1000 (0.0-0.7); EOS% 4.1 % (0.0-10.0); HEMATOCRIT 34.3 % (37.0-47.0); HEMOGLOBIN 10.7 g/dL (12.0-16.0); IMM GRAN# 0.05 X1000 (0.0-0.04); IMM GRAN% 0.4 % (0.0-0.5); LYMPH# 2.31 X1000 (1.2-3.4); LYMPH% 19.3 % (20.5-51.1); MCH 27.9 PG (27-31); MCHC 31.2 g/dL (33-37); MCV 89.6 FL (81-99); MONO# 1.08 X1000 (0.11-0.59); MPV 10.1 FL (7.4-10.4); NEUT# 7.98 X1000 (1.4-6.5); NEUT% 66.9 % (42.2-75.2); PLT 464 X1000 (130-400); RBC 3.83 XMIL (4.2-5.4); WBC 11.95 X1000 (4.8-10.8)
[2019-10-06 11:35] LABS: INR 1.07
[2019-10-06 11:36] LABS: PTT 35.6 Seconds (22.3-41.8)
[2019-10-06 11:44] LABS: AGAP 11; ALB/GLOB RATIO 0.8; ALKALINE PHOSPHATASE 66 U/L (32-104); BUN 21 mg/dL (8-22); CALCIUM 10.1 mg/dL (8.8-10.2); CHLORIDE 91 mmol/L (98-107); CK PROFILE 14 U/L (24-173); COSMO 269; CREATININE 0.5 mg/dL (0.5-0.9); ESTIMATED GFR > 60; GLUCOSE 119 mg/dL (70-104); GOT 13 U/L (10-30); GPT 12 U/L (10-36); POTASSIUM 4.7 mmol/L (3.5-5.1); SODIUM 132 mmol/L (136-145); TCO2 30 mmol/L (25-35); TOTAL BILIRUBIN 0.42 mg/dL (0.20-1.00); TOTAL PROTEIN 6.7 g/dL (6.3-8.3)
[2019-10-06 13:58] LABS: URINE SOURCE CLEAN CATCH
--- NOTE | 2019-10-06 14:01 | CONSULTATION ---
DATE OF CONSULTATION: 10/06/2019 REFERRING PHYSICIAN: Dr. Ivan. CHIEF COMPLAINT: Evaluation for shortness of breath and pneumonia, aspiration. HISTORY OF PRESENTING ILLNESS: This is a 74-year-old female who is a long-term resident, who presented with shortness of breath and altered mental status. PAST MEDICAL HISTORY: Include a PEG tube placement, carotid disease, diabetes, hypothyroidism, reflux disease, hyperlipidemia, hypertension, dementia, depression, anxiety. PAST SURGICAL HISTORY: Corneal transplant, hernia repair, cholecystectomy, and PEG tube placement. SOCIAL HISTORY: A long-term long-term resident. Ex-smoker. FAMILY HISTORY: Hypertension. ALLERGIES: Multiple, to sulfa, Levaquin, iodine, codeine, Librium, and Keflex. MEDICATIONS: Medications at home in the hospital were reviewed, include valproic acid, trazodone, Zofran, Prilosec, Reglan, Zyvox, Synthroid, Cymbalta, Dulcolax, aspirin, Lipitor, and DuoNeb. REVIEW OF SYSTEMS: As detailed in history of presenting illness. Otherwise noncontributory. PHYSICAL EXAMINATION: Vital Signs: Noted. Temperature 97 degrees, pulse oximetry 99% on 3 L nasal cannula. Head and Neck: Trachea midline. Chest: Reduced entry at the bases. Cardiac: S1, S2. Abdomen: Nontender. Lower limbs: +2 pedal edema. Neurologic: Lethargic and not responsive to the medication. LABS AND INVESTIGATIONS: CBC noted WBC is 11.95, platelets 464,000. CMP noted creatinine 0.5. CT scans of abdomen, pelvis and chest noted. There is no acute disease, but it could be because of lack of development of infiltrates at this time given just the event of aspiration that was witnessed in long-term. ASSESSMENT AND PLAN: A 74-year-old female with multiple comorbidities, long-term resident, poor functional capacity, presented with witnessed aspiration. 1. Witnessed aspiration. Pneumonia is possible despite lack of x-ray and CT scan findings. 2. Sepsis. We will continue current antibiotics despite the multiple allergies. The choices currently are complaint with her allergies. 3. We will follow up labs and x-rays and we are titration oxygen to patient needs and will follow up saturations closely and adjust accordingly per clinical protocol. cc: Peter Dennison MD
[2019-10-06 14:14] LABS: BILIRUBIN URINE NEGATIVE (NEGATIVE); BLOOD URINE NEGATIVE (NEGATIVE); COLOR YELLOW; GLUCOSE URINE NEGATIVE (NEGATIVE); KETONE URINE NEGATIVE (NEGATIVE); LEUKOCYTES URINE NEGATIVE (NEGATIVE); NITRITE URINE NEGATIVE (NEGATIVE); PH URINE 6.5; PROTEIN URINE 50 mg/dL (NEGATIVE); TURBIDITY URINE CLEAR (CLEAR); UROBILINOGEN URINE NORMAL (NORMAL)
[2019-10-06 14:15] LABS: UR EPITHELIAL CELLS <10 /HPF (<10); URINE BACTERIA NEGATIVE /HPF; URINE RBC <10 /HPF (<10); URINE WBC <10 /HPF (<10)
--- NOTE | 2019-10-06 14:37 | PROGRESS NOTE ---
DATE: 10/06/2019 SUBJECTIVE: The patient seems to be feeling a little bit better today compared with yesterday. She seems to be breathing better. She is complaining of some chest pain but this is reproducible, upon palpation. She has been evaluated by Pulmonary Department. Basically, we will continue with the same treatment for now. White blood cell count decreased from 18.2 to 11.9 and the hemoglobin improved after 1 unit of PRBC. I will add suppositories to her treatment, she is not having residuals with nutrition through the PEG tube, so I will increase it slowly. It is documented that this patient had a bowel movement. OBJECTIVE: Vital Signs: Temperature 97 degrees, pulse 100, respiratory rate 24, blood pressure 109/81, oxygen saturation 99 on 3 L of nasal cannula. HEENT: Head normocephalic, no trauma. She is blind. Neck: Supple, no JVD. Central trachea. Chest: Prolonged expiratory phase with some scattered wheezing and coarse breath sounds at the bases, probably some rhonchi. Abdomen: She does have what looks like a hematoma on her upper thoracic area, but does not look new. Abdomen is soft. PEG tube in place without any signs of infection or bleeding. Extremities: No edema, no clubbing, no cyanosis. Neurological: This patient is really hard of hearing. She is following commands and answering some of my questions. LABORATORY: WBC 11.9, hemoglobin 10.7, hematocrit 34.3, platelets 464,000, sodium 132, potassium 4.7, chloride 91, bicarbonate 30, BUN 21, creatinine 0.5, glucose 119, calcium 10.1, albumin 3. ASSESSMENT AND PLAN: 1. Possible aspiration pneumonia secondary to tube feeds. She does not have residual today. I will increase the rate of the feeding tube slowly and we will check residuals constantly. I started with some nutrition yesterday at 10 mL/hr. CT scan of the chest and abdomen did not show any signs of pneumonia or pneumonitis or aspiration, but is possible. 2. Sepsis secondary to #1. Continue with IV antibiotics. 3. Anemia. She is status post 1 packed red blood cells. We will continue to monitor. 4. Mild hyponatremia, stable compared with yesterday. 5. Hyperkalemia, resolved. 6. Blindness. 7. Type 2 diabetes. Continue with same management for now, seems to be stable. 8. This patient is DO NOT RESUSCITATE level 1. 9. Hypoxemic respiratory failure, likely secondary to aspiration pneumonia. Continue with oxygen supplementation. 10. Gastroesophageal reflux disease. Aware. 11. Hypothyroidism. 12. Possible dementia. cc: Rogelio Bacon MD
[2019-10-06] MEDS ORDERED: VANCOMYCIN 1,200 MG in NS 250 ML IV SCH (16:00)
[2019-10-06] MEDS: LOTRIMIN 1% CREAM TOP SCH ×2 (16:19→21:01)
[2019-10-06] MEDS: DULCOLAX PR SCH ×3 (16:21→21:31)
[2019-10-06] MEDS: DESYREL PO SCH (21:00)
[2019-10-06] MEDS: LIPITOR PO SCH (21:01)
[2019-10-07] MEDS: ZYVOX 600 MG/D5W 600 MG/300 ML IVPB IV SCH ×2 (05:00→17:16)
[2019-10-07] MEDS: PRILOSEC PO SCH ×2 (06:01→21:24)
[2019-10-07] MEDS: SYNTHROID PO SCH (06:02)
[2019-10-07 07:54] LABS: BASO# 0.06 X1000 (0.0-0.2); BASO% 0.6 % (0.0-0.8); EOS# 0.28 X1000 (0.0-0.7); EOS% 2.6 % (0.0-10.0); HEMATOCRIT 34.3 % (37.0-47.0); HEMOGLOBIN 10.9 g/dL (12.0-16.0); IMM GRAN# 0.02 X1000 (0.0-0.04); IMM GRAN% 0.2 % (0.0-0.5); LYMPH# 1.77 X1000 (1.2-3.4); LYMPH% 16.6 % (20.5-51.1); MCH 28.5 PG (27-31); MCHC 31.8 g/dL (33-37); MCV 89.6 FL (81-99); MONO% 10.3 % (1.7-9.3); MPV 9.2 FL (7.4-10.4); NEUT# 7.44 X1000 (1.4-6.5); NEUT% 69.7 % (42.2-75.2); PLT 473 X1000 (130-400); RBC 3.83 XMIL (4.2-5.4); WBC 10.67 X1000 (4.8-10.8)
[2019-10-07 08:28] LABS: ESTIMATED GFR > 60
[2019-10-07 08:30] LABS: MAGNESIUM 2.1 mg/dL (1.5-2.7)
[2019-10-07 08:34] LABS: AGAP 11; BUN 18 mg/dL (8-22); CALCIUM 10.5 mg/dL (8.8-10.2); CHLORIDE 87 mmol/L (98-107); COSMO 261; CREATININE 0.5 mg/dL (0.5-0.9); GLUCOSE 143 mg/dL (70-104); POTASSIUM 4.1 mmol/L (3.5-5.1); SODIUM 128 mmol/L (136-145); TCO2 30 mmol/L (25-35)
[2019-10-07] MEDS: NEURONTIN PO SCH ×2 (10:07→21:23)
[2019-10-07] MEDS: CULTURELLE PO SCH (10:07)
[2019-10-07] MEDS: REGLAN PO SCH ×2 (10:07→21:23)
[2019-10-07] MEDS: DEPAKENE LIQUID PO SCH ×2 (10:07→21:23)
[2019-10-07] MEDS: CYMBALTA PO SCH (10:07)
[2019-10-07] MEDS: AZACTAM 1 GM in NS 50 ML IV SCH ×2 (10:08→16:33)
[2019-10-07] MEDS: DULCOLAX PR SCH ×2 (10:08→21:24)
[2019-10-07] MEDS: LOTRIMIN 1% CREAM TOP SCH ×2 (11:21→21:25)
--- NOTE | 2019-10-07 13:40 | PROGRESS NOTE ---
DATE: 10/07/2019 SUBJECTIVE: The patient states that she is feeling better but she is still complaining of some chest discomfort which is upon palpation. Also, she is complaining of some abdominal discomfort. She is having bowel movements and also she he is tolerating her feeding tube. Chest x-ray yesterday did not show any changes. White blood cell count normalized. At the beginning, it was 18.2 and today, it is 10.6. Hemoglobin has been stable after 1 unit of PRBC. For now, we will monitor. OBJECTIVE: Vital Signs: Temperature 97.1 degrees, pulse 85, respiratory rate 22, blood pressure 117/53, oxygen saturation 100% on 3 L of nasal cannula. HEENT: Head normocephalic. No trauma. She is blind. Neck: Supple. No JVD. No masses. Central trachea. Chest: Prolonged expiratory phase with some coarse breath sounds, mostly at the bases. No wheezing today. Probably some rhonchi. Abdomen: Soft. She has a hematoma in the upper thoracic area but does not does not look new and also is painful to palpation, mostly on the left side. Abdomen: Soft. PEG tube in place without any signs of infection or bleeding. Extremities: No edema, no clubbing, no cyanosis. Neurological Examination: The patient is really hard of hearing. She is following commands. She is answering some of my questions. Laboratory: WBC 10.6, hemoglobin 10.9, hematocrit 34.3, platelets 473,000. Sodium 128, potassium 4.1, chloride 87, bicarbonate 30, BUN 18, creatinine 0.5, glucose 143, calcium 10.5, magnesium 2.1. ASSESSMENT AND PLAN: 1. Likely aspiration pneumonia secondary to tube feeds. She is not having residuals. We have increased the feeding rate to [address] scan of the chest and abdomen did not show any signs of pneumonia/pneumonitis or aspiration but this is still possible. Continue with antibiotics. 2. Likely sepsis, due to #1. Continue with intravenous antibiotics. 3. Anemia. Status post 1 unit of packed red blood cells, hemoglobin has been stable. 4. Hyponatremia. I will give her some normal saline x1 since her sodium level and chloride level dropped. 5. Hyperkalemia, resolved. 6. Blindness. 7. Type 2 diabetes. Continue with the same management for now. Seems to be stable. 8. This patient is Do Not Resuscitate level 1. 9. Hypoxemic respiratory failure, likely secondary to aspiration pneumonia. Continue with oxygen supplementation. 10. Gastroesophageal reflux disease. Aware. 11. Hypothyroidism. Continue with levothyroxine. 12. Likely dementia. Aware. cc: Rogelio Bacon MD
--- NOTE | 2019-10-07 14:35 | PROGRESS NOTE ---
DATE: 10/07/2019 SUBJECTIVE: The patient is in bed, not responsive to my examination but not in distress. OBJECTIVE: Vital signs: Vital signs seen. She is currently afebrile and hemodynamically stable. Pulse rate is 69. Head and neck exam: Trachea midline. Chest examination: Few crackles bilaterally. Cardiac exam: S1, S2. Abdomen: Soft, nontender. Lower extremities: Plus 2 pedal edema. Neurologic exam: Lethargic, not responsive. LABS AND INVESTIGATIONS: WBC is a 10.6, hemoglobin 10.9. CBC seen. Creatinine 0.5. CMP seen. Sodium 128. ASSESSMENT AND PLAN: A 74-year-old female with: 1. Witnessed aspiration pneumonia, and we will follow up x-ray tomorrow. 2. Continue antibiotics and follow clinical response and white blood cell levels. 3. Oxygen supplementation and titrate to patient's needs and follow oxygen saturation closely. cc: Peter Dennison MD
[2019-10-07] MEDS: NS 500 ML IV SCH (14:41)
[2019-10-07] MEDS: DESYREL PO SCH (21:23)
[2019-10-07] MEDS: LIPITOR PO SCH (21:24)
[2019-10-08] MEDS: AZACTAM 1 GM in NS 50 ML IV SCH ×4 (00:46→23:44)
[2019-10-08] MEDS: NS 500 ML IV SCH (05:04)
[2019-10-08] MEDS: ZYVOX 600 MG/D5W 600 MG/300 ML IVPB IV SCH ×2 (05:14→17:37)
[2019-10-08] MEDS: SYNTHROID PO SCH (06:05)
[2019-10-08] MEDS: PRILOSEC PO SCH ×2 (06:05→23:34)
--- NOTE | 2019-10-08 07:19 | Diag Imaging Result Doc PS360 ---
EXAM: CHEST-1 VIEW HISTORY: SOB TECHNIQUE: Single view COMPARISON: 10/06/2019 FINDINGS: Poor inspiratory effort. There are small lung infiltrates. No cardiomegaly. No pleural effusions identified. IMPRESSION: No interval improvement Electronically signed by Johnnie Bhardwaj 10/08/2019 7:16 AM
[2019-10-08 07:32] LABS: AGAP 10; BUN 18 mg/dL (8-22); CALCIUM 9.9 mg/dL (8.8-10.2); CHLORIDE 91 mmol/L (98-107); COSMO 267; CREATININE 0.4 mg/dL (0.5-0.9); ESTIMATED GFR > 60; GLUCOSE 145 mg/dL (70-104); POTASSIUM 3.7 mmol/L (3.5-5.1); SODIUM 131 mmol/L (136-145); TCO2 30 mmol/L (25-35)
[2019-10-08] MEDS: DULCOLAX PR SCH ×2 (09:04→23:35)
[2019-10-08] MEDS: DEPAKENE LIQUID PO SCH ×2 (10:13→23:34)
[2019-10-08] MEDS: CULTURELLE PO SCH (10:16)
[2019-10-08] MEDS: CYMBALTA PO SCH (10:16)
[2019-10-08] MEDS: REGLAN PO SCH ×2 (10:16→23:35)
--- NOTE | 2019-10-08 13:19 | PROGRESS NOTE ---
DATE: 10/08/2019 SUBJECTIVE: The patient seems to be feeling better, but she is still complaining of some chest discomfort, mostly upon palpation and movement. She has been having some liquid bowel movement. I asked for lab work to rule out Clostridium difficile infection, and it is negative. Blood cultures negative for the past 48 hours as well. White blood cell normalized and the BMP looks better. I will continue with same management. I do believe this patient probably can go home in the next 48 hours or so. Chest x-ray today showed no interval improvement, but she seems to be feeling better. OBJECTIVE: Vital Signs: Temperature 98.4 degrees, pulse 82, respiratory rate 18, blood pressure 134/60, oxygen saturation 96 on 2 L of nasal cannula. HEENT: Head normocephalic, no trauma. She is blind. Neck: Supple. No JVD. No masses. Central trachea. Chest: Prolonged expiratory phase with some coarse breath sounds mostly at the bases. No wheezing. Some rhonchi. Abdomen: Soft. She has a hematoma in the upper thoracic area, but does not look new for me, and is painful to palpation, mostly on the left side. Abdomen: Soft. PEG tube in place without any signs of infection or bleeding. Extremities: She has some blisters and swelling at the level of the upper extremities. Neurological examination: The patient is really hard of hearing. She is following commands. She is answering some of my questions, but she does have generalized weakness which is chronic. LABORATORY: Sodium 131, potassium 3.7, chloride 91, bicarbonate 30. BUN 18, creatinine 0.4, glucose 145, calcium 9.9. ASSESSMENT AND PLAN: 1. Likely aspiration pneumonia secondary to tube feeds. She is not having any residuals right now, and she is having bowel movements. We will continue with the same management. She is getting antibiotics. Pulmonary Department on board. 2. Likely sepsis due to #1. Continue with intravenous antibiotics. 3. Anemia status post 1 packed red blood cell. I will recheck the hemoglobin tomorrow. 4. Hyponatremia, getting better. 5. Hyperkalemia, resolved. 6. Blindness. 7. Type 2 diabetes. Continue with same management. Seems to be stable. 8. This patient is do not resuscitate level 1. 9. Hypoxemic respiratory failure secondary to aspiration pneumonia. Continue with oxygen supplementation. 10. Gastroesophageal reflux disease. Continue with same management. 11. Hypothyroidism. Continue with levothyroxine. 12. Likely dementia. Aware. cc: Rogelio Bacon MD
--- NOTE | 2019-10-08 14:37 | PROVIDER PROGRESS NOTE ---
Progress Note Dr. Dennison Progress Note/Pulmonary and or critical care Subjective: The patient is lying in bed on NC 3L. She appears sleeping with no acute distress noted. She is on PEG tube feeding. There is no family at the bedside. Objective: Vital Signs: T 98.4 (no fever in last 24 hours), NC 82, RR 18, BP 134/60 and SaO2 100% on NC 3L. Physical Examination: General: Lying in bed with no acute distress noted. Generalized swelling noted. HEENT: Normocephalic. Atraumatic. Trachea midline. Mucosa pink and moist. Blindness noted. Face mildly swelling. Chest: Even and unlabored. Symmetrical excursion. Auscultation reveals a few crackles bilaterally with KAREN rhonchi, but no wheezing noted. CVS: S1 and S2 appreciated. Abdomen: Soft. PEG tube in place. Bowel sounds present in all 4 quadrants. Extremities: BLE pitting edema 1+. BUE pitting edema 2+ with numerous bullae and oozing on RUE. No cyanosis. No clubbing. Neuro: Appear sleeping with difficulty to arouse. Patient has difficulty hearing and blindness. Labs and Radiology: Laboratory Results 10/07/19 10/07/19 10/07/19 10:44 16:27 20:39 Sodium Potassium Chloride Carbon Dioxide Anion Gap BUN Creatinine Estimated GFR/1.73 m2 BUN/Creatinine Ratio Glucose POC Glucose 124 H 105 H 162 H D Calculated Osmolality Calcium 10/08/19 10/08/19 10/08/19 05:42 06:49 10:53 Sodium 131 L Potassium 3.7 Chloride 91 L Carbon Dioxide 30 Anion Gap 10 BUN 18 Creatinine 0.4 L Estimated GFR/1.73 m2 > 60 BUN/Creatinine Ratio 45 Glucose 145 H POC Glucose 163 H 93 Calculated Osmolality 267 Calcium 9.9 Assessment: Acute hypoxic respiratory failure. Improving. Suspected pneumonia with witnessed aspiration secondary to PEG tube feeding. CT thorax/abd/pelvis with contrast on 10/05/19 showed significant dependent atelectasis bilaterally. CXR today shows no interval improvement. Suspected sepsis. Improving. Normocytic anemia. s/p 1 unit of leukocyte-reduced RBC transfusion on 10/05/19. Stable. DNR 1. Plan: Wean supplemental oxygen as tolerated. Continue antibiotics including Aztreonam and Linezolid. Continue bronchodilators as needed. Continue GI and DVT prophylaxis. We will follow up CXR tomorrow. Advanced PEG tube feeding per dietitian.
[2019-10-08] MEDS: NEURONTIN PO SCH ×2 (16:34→23:35)
[2019-10-08] MEDS: LOTRIMIN 1% CREAM TOP SCH ×2 (16:35→23:37)
[2019-10-08] MEDS: DESYREL PO SCH (23:35)
[2019-10-08] MEDS: LIPITOR PO SCH (23:35)
[2019-10-09] MEDS: ZYVOX 600 MG/D5W 600 MG/300 ML IVPB IV SCH ×2 (06:24→17:03)
[2019-10-09] MEDS: SYNTHROID PO SCH (06:25)
[2019-10-09] MEDS: PRILOSEC PO SCH ×2 (06:25→21:10)
[2019-10-09 06:58] LABS: HEMATOCRIT 33.9 % (37.0-47.0); HEMOGLOBIN 10.3 g/dL (12.0-16.0); MCH 27.4 PG (27-31); MCHC 30.4 g/dL (33-37); MCV 90.2 FL (81-99); RBC 3.76 XMIL (4.2-5.4); RDW 16.2 % (11.5-14.5); WBC 8.07 X1000 (4.8-10.8)
--- NOTE | 2019-10-09 07:06 | Diag Imaging Result Doc PS360 ---
EXAM: CHEST-PORTABLE INDICATION: dyspnea TECHNIQUE: One view COMPARISON: 10/08/2019 FINDINGS: Mild left basilar infiltrate is grossly stable. No new consolidation is identified. Cardiac silhouette is stable. IMPRESSION: Stable chest. Electronically signed by Nilton Ayala 10/09/2019 7:04 AM
[2019-10-09 07:29] LABS: AGAP 10; BUN 15 mg/dL (8-22); CALCIUM 9.8 mg/dL (8.8-10.2); CHLORIDE 93 mmol/L (98-107); COSMO 270; CREATININE 0.4 mg/dL (0.5-0.9); ESTIMATED GFR > 60; GLUCOSE 111 mg/dL (70-104); PHOSPHORUS 3.5 mg/dL (2.7-4.5); POTASSIUM 3.8 mmol/L (3.5-5.1); SODIUM 134 mmol/L (136-145); TCO2 31 mmol/L (25-35)
[2019-10-09] MEDS: AZACTAM 1 GM in NS 50 ML IV SCH ×2 (08:20→16:19)
[2019-10-09] MEDS: DEPAKENE LIQUID PO SCH ×2 (08:20→21:07)
[2019-10-09] MEDS: NEURONTIN PO SCH ×2 (08:20→21:10)
[2019-10-09] MEDS: CYMBALTA PO SCH (08:20)
[2019-10-09] MEDS: REGLAN PO SCH ×2 (08:20→21:08)
[2019-10-09] MEDS: CULTURELLE PO SCH (08:21)
[2019-10-09] MEDS: DULCOLAX PR SCH ×2 (08:21→21:15)
[2019-10-09] MEDS: LOTRIMIN 1% CREAM TOP SCH ×2 (08:25→21:15)
--- NOTE | 2019-10-09 12:14 | PROGRESS NOTE ---
DATE: 10/09/2019 SUBJECTIVE: The patient is very sleepy this morning. No acute issues noted as per nursing staff overnight. OBJECTIVE: Vital Signs: Temperature 98.6, heart rate 68, respiratory rate 16, blood pressure 125/63, and O2 saturation 95% on 2 liters nasal cannula. General: This is a chronically ill- looking 74-year-old female, lying in bed, in no acute distress. Cardiovascular: S1 and S2 heard. No murmurs, gallops, or rubs. Regular rate and rhythm. Respiratory: Prolonged respiratory phase with some coarse breath sounds noted in both pulmonary deleon, mostly in both bases. Patient is not using any accessory muscles or having work of breathing. Abdomen: Soft. The patient has hematoma in the upper thoracic area. There is also a PEG tube in place with no edema, no signs of infection around it. Extremities: Patient has blister and swelling at the level of the upper extremities. Neurological: Patient is really hard of hearing. She is blind. She is not following commands to me this morning. LABORATORY DATA: Reviewed with hemoglobin 10.3, and BMP is okay. ASSESSMENT AND PLAN: 1. Acute hypoxemic respiratory failure secondary to aspiration pneumonia. We will continue with oxygen supplementation. Apparently, this pneumonia was witnessed and was secondary to tube feedings. The patient is not having any residuals right now. She continues to have good bowel movements at this point. We will continue with current antibiotic management. Pulmonary is following this patient as well. 2. Anemia of chronic blood loss. Patient had 1 unit of blood transfused 4 days ago. Hemoglobin continues to be stable, it is 10.3 today. We will continue to monitor. 3. Hyponatremia, resolved. 4. Hyperkalemia, resolved. 5. Blindness, aware. 6. Diabetes mellitus type 2. We will continue with sliding scale insulin, Accu-Chek before meals and also at bedtime. 7. Gastroesophageal reflux disease. We will continue with Protonix. 8. Disposition. At this point, the patient is medically stable. 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 cc: Raheem Vasquez MD
--- NOTE | 2019-10-09 16:32 | PROVIDER PROGRESS NOTE ---
Progress Note Dr. Dennison Progress Note/Pulmonary and or critical care Subjective: The patient is lying in bed on NC 3L. She appears sleeping with no acute distress noted. I try to wake her up, but fail. She is on PEG tube feeding. There is no family at the bedside. Objective: Vital Signs: T 98.6 (no fever in last 24 hours), CT 68, RR 16, BP 125/53 and SaO2 95% on NC 3L. Physical Examination: General: Lying in bed with no acute distress noted. Improved generalized swelling. HEENT: Normocephalic. Atraumatic. Trachea midline. Mucosa pink and moist. Blindness noted. Chest: Even and unlabored. Symmetrical excursion. Auscultation reveals diminished breathing sounds bilaterally. CVS: S1 and S2 appreciated. Abdomen: Soft. PEG tube in place. Bowel sounds present in all 4 quadrants. Extremities: BLE and BUE pitting edema 2-3+ with improving bullae and weeping on RUE. Multiple lesions noted on BLE and BUE. No cyanosis. No clubbing. Neuro: Appear sleeping with difficulty to arouse. Patient has difficulty hearing and blindness. Labs and Radiology: Laboratory Results 10/05/19 10/08/19 10/09/19 17:05 20:53 05:40 WBC RBC Hgb Hct MCV MCH MCHC RDW Std Deviation Plt Count MPV Sodium Potassium Chloride Carbon Dioxide Anion Gap BUN Creatinine Estimated GFR/1.73 m2 BUN/Creatinine Ratio Glucose POC Glucose 94 114 H Calculated Osmolality Calcium Phosphorus Magnesium Crossmatch See Detail 10/09/19 10/09/19 10/09/19 06:40 06:40 10:01 WBC 8.07 RBC 3.76 L Hgb 10.3 L Hct 33.9 L MCV 90.2 MCH 27.4 MCHC 30.4 L RDW Std Deviation 16.2 H Plt Count 432 H MPV 9.0 Sodium 134 L Potassium 3.8 Chloride 93 L Carbon Dioxide 31 Anion Gap 10 BUN 15 Creatinine 0.4 L Estimated GFR/1.73 m2 > 60 BUN/Creatinine Ratio 38 Glucose 111 H POC Glucose 136 H Calculated Osmolality 270 Calcium 9.8 Phosphorus 3.5 Magnesium 2.0 Crossmatch 10/09/19 15:33 WBC RBC Hgb Hct MCV MCH MCHC RDW Std Deviation Plt Count MPV Sodium Potassium Chloride Carbon Dioxide Anion Gap BUN Creatinine Estimated GFR/1.73 m2 BUN/Creatinine Ratio Glucose POC Glucose 97 Calculated Osmolality Calcium Phosphorus Magnesium Crossmatch Assessment: Acute hypoxic respiratory failure. Improving. Suspected pneumonia with witnessed aspiration secondary to PEG tube feeding. CT thorax/abd/pelvis with contrast on 10/05/19 showed significant dependent atelectasis bilaterally. CXR today shows stable chest with mild left basilar infiltrate. Suspected sepsis. Improved. Normocytic anemia. s/p 1 unit of leukocyte-reduced RBC transfusion on 10/05/19. Stable. DNR 1. Plan: Wean supplemental oxygen as tolerated. Continue antibiotics including Aztreonam and Linezolid. Continue bronchodilators as needed. Continue GI and DVT prophylaxis. We will follow up CXR tomorrow. Advanced PEG tube feeding per dietitian.
[2019-10-09] MEDS: DESYREL PO SCH (21:08)
[2019-10-09] MEDS: LIPITOR PO SCH (21:10)
[2019-10-10] MEDS: AZACTAM 1 GM in NS 50 ML IV SCH ×4 (01:00→23:44)
[2019-10-10] MEDS: ZYVOX 600 MG/D5W 600 MG/300 ML IVPB IV SCH ×2 (06:25→19:39)
[2019-10-10] MEDS: PRILOSEC PO SCH ×2 (06:31→21:49)
[2019-10-10] MEDS: SYNTHROID PO SCH (06:31)
[2019-10-10] MEDS: CYMBALTA PO SCH (10:42)
[2019-10-10] MEDS: CULTURELLE PO SCH (10:43)
[2019-10-10] MEDS: NEURONTIN PO SCH ×2 (10:43→21:50)
[2019-10-10] MEDS: REGLAN PO SCH ×2 (10:43→21:50)
[2019-10-10] MEDS: DULCOLAX PR SCH ×2 (11:00→21:49)
[2019-10-10] MEDS: LOTRIMIN 1% CREAM TOP SCH ×2 (11:00→21:57)
--- NOTE | 2019-10-10 12:54 | PROGRESS NOTE ---
DATE: 10/07/2019 SUBJECTIVE: Patient is sleepy this morning. No acute issues noted as per nursing staff overnight. OBJECTIVE: Vital Signs: Temperature 98.7 degrees, heart rate 74, respiratory rate 18, blood pressure 130/82, O2 saturation 100% 2 L nasal cannula. General examination: This is a chronically ill-looking, 74-year-old, female lying in bed in no acute distress. Cardiovascular exam: S1, S2 heard. No murmurs, gallops, or rubs. Regular rate and rhythm. Respiratory exam: Coarse breath sounds still present in both pulmonary deleon, mostly noted in both bases. Patient not using any accessory muscles or having work of breathing. Abdomen: Soft. The patient has a PEG tube in place with no edema or signs of infection around it. Extremities: The patient has a blister and swelling at the level of the upper extremities. Neurological exam: Patient is hard of hearing, blind. He does not follow commands this morning. LABORATORY DATA: Reviewed. ASSESSMENT AND PLAN: 1. Acute hypoxemic respiratory failure secondary to aspiration pneumonia. At this point, we will continue with nasogastric tube feedings. We will continue with current antibiotic management. Pulmonary following this patient for further recommendations. 2. Anemia of chronic blood loss. He continues to be stable. We will continue to monitor. 3. Hyponatremia, resolved. 4. Hyperkalemia, resolved. 5. Blindness. Aware. 6. Diabetes mellitus type 2. We will continue with sliding scale insulin. Accu-Chek before meals and also at bedtime. 7. Gastroesophageal reflux disease. We will continue with Protonix. 8. Disposition: At this point, patient is medically stable. 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 They have requested Coronavirus Disease 2019 test in order to return back there, so that test has been ordered today. We will continue to monitor. cc: Raheem Vasquez MD
[2019-10-10] MEDS ORDERED: TYLENOL PO PRN (12:58)
--- NOTE | 2019-10-10 18:10 | PROVIDER PROGRESS NOTE ---
Progress Note Dr. Dennison Progress Note/Pulmonary and or critical care Subjective: The patient is lying in bed on NC 2L. She just had a bedside bath with help from staff. She is complaining of generalized pain all over. There is no family at the bedside. Objective: Vital Signs: T 98.7 (no fever in last 24 hours), W[place] 74, RR 18, BP 130/52 and SaO2 100% on NC 2L. Physical Examination: General: Lying in bed with no acute distress noted. HEENT: Normocephalic. Atraumatic. Trachea midline. Mucosa pink and moist. Blindness noted. Chest: Even and unlabored. Symmetrical excursion. Auscultation reveals diminished breathing sounds bilaterally. CVS: S1 and S2 appreciated. Abdomen: Soft. PEG tube in place. Bowel sounds present in all 4 quadrants. Extremities: BLE and BUE pitting edema 2-3+ with improving bullae and weeping on RUE. Multiple lesions noted on BLE and BUE. No cyanosis. No clubbing. Neuro: Patient has difficulty hearing and blindness. She is awake and alert. She answers simple questions and follow simple commands. Labs and Radiology: Laboratory Results 10/09/19 10/10/19 10/10/19 20:19 05:40 10:43 POC Glucose 104 89 95 10/10/19 16:17 POC Glucose 101 Assessment: Acute hypoxic respiratory failure. Improving. Suspected pneumonia with witnessed aspiration secondary to PEG tube feeding. CT thorax/abd/pelvis with contrast on 10/05/19 showed significant dependent atelectasis bilaterally. Suspected sepsis. Improved. Normocytic anemia. s/p 1 unit of leukocyte-reduced RBC transfusion on 10/05/19. Stable. DNR 1. Plan: Wean supplemental oxygen as tolerated. Continue antibiotics including Aztreonam and Linezolid. We follow up CBC and BMP tomorrow. Continue bronchodilators as needed. Continue GI and DVT prophylaxis. Advanced PEG tube feeding per dietitian. Tylenol given for mild pain at this time. We will keep closely monitoring patients response. COVID-19 test repeated for discharge planning.
[2019-10-10] MEDS: DEPAKENE LIQUID PO SCH ×2 (19:39→21:54)
[2019-10-10] MEDS: LIPITOR PO SCH (21:50)
[2019-10-10] MEDS: DESYREL PO SCH (21:57)
[2019-10-11] MEDS: ZYVOX 600 MG/D5W 600 MG/300 ML IVPB IV SCH ×2 (06:10→19:37)
[2019-10-11] MEDS: SYNTHROID PO SCH (06:10)
[2019-10-11] MEDS: PRILOSEC PO SCH ×2 (06:10→21:27)
[2019-10-11 07:48] LABS: BASO# 0.03 X1000 (0.0-0.2); BASO% 0.3 % (0.0-0.8); EOS# 0.65 X1000 (0.0-0.7); EOS% 6.8 % (0.0-10.0); HEMATOCRIT 35.9 % (37.0-47.0); HEMOGLOBIN 10.7 g/dL (12.0-16.0); IMM GRAN# 0.03 X1000 (0.0-0.04); IMM GRAN% 0.3 % (0.0-0.5); LYMPH# 1.66 X1000 (1.2-3.4); LYMPH% 17.4 % (20.5-51.1); MCHC 29.8 g/dL (33-37); MCV 90.4 FL (81-99); MONO# 0.69 X1000 (0.11-0.59); MONO% 7.2 % (1.7-9.3); NEUT# 6.49 X1000 (1.4-6.5); PLT 492 X1000 (130-400); RBC 3.97 XMIL (4.2-5.4); RDW 15.9 % (11.5-14.5); WBC 9.55 X1000 (4.8-10.8)
[2019-10-11 08:19] LABS: AGAP 10; BUN 15 mg/dL (8-22); CALCIUM 10.1 mg/dL (8.8-10.2); CHLORIDE 93 mmol/L (98-107); COSMO 274; CREATININE 0.3 mg/dL (0.5-0.9); ESTIMATED GFR > 60; GLUCOSE 115 mg/dL (70-104); POTASSIUM 4.3 mmol/L (3.5-5.1); SODIUM 136 mmol/L (136-145); TCO2 33 mmol/L (25-35)
[2019-10-11] MEDS: AZACTAM 1 GM in NS 50 ML IV SCH ×2 (11:18→19:33)
[2019-10-11] MEDS: DULCOLAX PR SCH ×2 (11:19→21:28)
[2019-10-11] MEDS: CULTURELLE PO SCH (11:19)
[2019-10-11] MEDS: DEPAKENE LIQUID PO SCH ×2 (11:19→21:27)
[2019-10-11] MEDS: CYMBALTA PO SCH (11:19)
[2019-10-11] MEDS: REGLAN PO SCH ×2 (11:20→21:27)
[2019-10-11] MEDS: LOTRIMIN 1% CREAM TOP SCH ×2 (11:39→21:28)
[2019-10-11] MEDS: NEURONTIN PO SCH ×2 (11:39→21:27)
--- NOTE | 2019-10-11 16:24 | PROGRESS NOTE ---
DATE: 10/11/2019 Ms. Del Toro remains stable today. She continues to be on 2 L of supplemental oxygen and she is saturating well 98 to 100. She refers to feel okay. OBJECTIVE: Vital signs: Blood pressure is 114/79, pulse of 91, respiration is 18, temperature is 98.2 degrees. General: Ms. Del Toro is a 74-year-old female. She is in bed, no distress. HEENT: Mucosa is pink and moist. Anicteric. Acyanotic. Neck: Supple. She is bilaterally blind. Respiratory System: Air entry is bilaterally reduced, a few crackles in the posterior lung deleon. Cardiovascular: Regular rate and rhythm. Abdomen: Soft. PEG tube is in place. Extremities: About 1+ pedal edema. ASSOCIATE FINANCIAL REPRESENTATIVE: The patient is bilaterally blind and hard of hearing. She, however is able to respond to a few questions, but she will not move extremities on any commands. Ms. Mattson was able to tell me her age and she was able to tell me that she is doing fine, which I think she is back to her baseline. LABORATORY DATA: WBC is 9.5, hemoglobin is 10.7, platelet count of 495,000. Chemistry is also reviewed, unremarkable. We just got a COVID testing which is negative. ASSESSMENT: 1. Acute hypoxemic respiratory failure on presentation improved. 2. Aspiration pneumonia. 3. Anemia of chronic disease. 4. Diabetes mellitus. 5. GERD. 6. PEG tube feedings. 7. Bilateral blindness. In general, I think Ms. Del Toro is fairly stable. I think it is probably back to her baseline. COVID testing has come back negative this afternoon. We will make arrangements to get her discharged tomorrow back to [facility]. cc: David Crooks MD
--- NOTE | 2019-10-11 17:37 | PROVIDER PROGRESS NOTE ---
Progress Note Dr. Dennison Progress Note/Pulmonary and or critical care Subjective: The patient is lying in bed on NC 2L. She is sleeping at this time. She is on PEG tube feeding. Objective: Vital Signs: T 98.5 (no fever in last 24 hours), MO 87, RR 19, BP 149/75 and SaO2 99% on NC 2L. Physical Examination: General: Lying in bed with no acute distress noted. HEENT: Normocephalic. Atraumatic. Trachea midline. Blindness noted. Chest: Even and unlabored. Symmetrical excursion. Auscultation reveals diminished breathing sounds bilaterally. CVS: S1 and S2 appreciated. Abdomen: Soft. PEG tube in place. Bowel sounds present in all 4 quadrants. Extremities: BLE and BUE pitting edema 1-2+. RUE dressing in place, dry, clean and intact. Multiple lesions noted on BLE and BUE. No cyanosis. No clubbing. Neuro: Patient has difficulty hearing and blindness. She is sleeping at this time and hard to wake her up. Labs and Radiology: Laboratory Results 10/10/19 10/10/19 10/11/19 14:30 19:52 05:32 WBC RBC Hgb Hct MCV MCH MCHC RDW Std Deviation Plt Count MPV Immature Gran % (Auto) Neut % (Auto) Lymph % (Auto) Mitchell % (Auto) Eos % (Auto) Baso % (Auto) Immature Gran # (Auto) Neut # (Auto) Lymph # (Auto) Mitchell # (Auto) Eos # (Auto) Baso # (Auto) Sodium Potassium Chloride Carbon Dioxide Anion Gap BUN Creatinine Estimated GFR/1.73 m2 BUN/Creatinine Ratio Glucose POC Glucose 126 H 108 H Calculated Osmolality Calcium Coronavirus (PCR) SEE COMMENTS 10/11/19 10/11/19 10/11/19 06:00 06:00 11:32 WBC 9.55 RBC 3.97 L Hgb 10.7 L Hct 35.9 L MCV 90.4 MCH 27.0 MCHC 29.8 L RDW Std Deviation 15.9 H Plt Count 492 H MPV 10.0 Immature Gran % (Auto) 0.3 Neut % (Auto) 68.0 Lymph % (Auto) 17.4 L Mitchell % (Auto) 7.2 Eos % (Auto) 6.8 Baso % (Auto) 0.3 Immature Gran # (Auto) 0.03 Neut # (Auto) 6.49 Lymph # (Auto) 1.66 Mitchell # (Auto) 0.69 H Eos # (Auto) 0.65 Baso # (Auto) 0.03 Sodium 136 Potassium 4.3 Chloride 93 L Carbon Dioxide 33 Anion Gap 10 BUN 15 Creatinine 0.3 L Estimated GFR/1.73 m2 > 60 BUN/Creatinine Ratio 50 Glucose 115 H POC Glucose 116 H Calculated Osmolality 274 Calcium 10.1 Coronavirus (PCR) 10/11/19 16:22 WBC RBC Hgb Hct MCV MCH MCHC RDW Std Deviation Plt Count MPV Immature Gran % (Auto) Neut % (Auto) Lymph % (Auto) Mitchell % (Auto) Eos % (Auto) Baso % (Auto) Immature Gran # (Auto) Neut # (Auto) Lymph # (Auto) Mitchell # (Auto) Eos # (Auto) Baso # (Auto) Sodium Potassium Chloride Carbon Dioxide Anion Gap BUN Creatinine Estimated GFR/1.73 m2 BUN/Creatinine Ratio Glucose POC Glucose 105 H Calculated Osmolality Calcium Coronavirus (PCR) Assessment: Acute hypoxic respiratory failure. Improving. Suspected pneumonia with witnessed aspiration secondary to PEG tube feeding. CT thorax/abd/pelvis with contrast on 10/05/19 showed significant dependent atelectasis bilaterally. Improved clinically. Suspected sepsis. Resolved. Normocytic anemia. s/p 1 unit of leukocyte-reduced RBC transfusion on 10/05/19. Stable. DNR 1. Plan: Wean supplemental oxygen as tolerated. Continue antibiotics including Aztreonam and Linezolid. We follow up CBC and BMP tomorrow. Continue bronchodilators as needed. Continue GI and DVT prophylaxis. Advanced PEG tube feeding per dietitian. COVID-19 retested on 10/10/19 for discharge planning with negative results.
[2019-10-11] MEDS: LIPITOR PO SCH (21:27)
[2019-10-11] MEDS: DESYREL PO SCH (21:27)
[2019-10-12] MEDS: AZACTAM 1 GM in NS 50 ML IV SCH ×3 (00:04→16:48)
[2019-10-12] MEDS: PRILOSEC PO SCH (06:11)
[2019-10-12] MEDS: SYNTHROID PO SCH (06:11)
[2019-10-12] MEDS: ZYVOX 600 MG/D5W 600 MG/300 ML IVPB IV SCH (06:11)
--- NOTE | 2019-10-12 09:32 | DISCHARGE SUMMARY ---
ADMISSION DATE: 10/05/2019 DISCHARGE DATE: 10/12/2019 PRIMARY CARE PHYSICIAN: Dr. Alex Fernandes. ADMISSION DIAGNOSES: 1. Probable aspiration pneumonia secondary to tube feeds. 2. Sepsis secondary to #1. 3. Anemia. 4. Mild hyponatremia. 5. Mild hyperkalemia. 6. Anxiety, depression, dementia. 7. Diabetes, type 2. 8. Portable do not attempt resuscitation. DISCHARGE DIAGNOSES: 1. Acute hypoxemic respiratory failure on presentation, improved. 2. Aspiration pneumonia. 3. Anemia of chronic disease. 4. Diabetes. 5. Gastroesophageal reflux disease. 6. Percutaneous endoscopic gastrostomy tube feedings. 7. Bilateral blindness. SUMMARY OF FINDINGS: This is a 74-year-old female, who is a long-term resident at [facility], was brought in for altered mental status and respiratory failure. She has a PEG tube and currently also has a portable DNR. White count was noted to be elevated. She was admitted for a probable aspiration pneumonia and sepsis, started on broad spectrum antibiotics. We obtained a pulmonology consultation on 10/06/2019, who followed the patient throughout the remainder of the hospitalization. We did a chest, abdomen and pelvic CT on admission that showed a significant dependent atelectasis bilaterally, no suspicious infiltrates, no acute process in the abdomen or pelvis. We repeated chest x-ray on 10/09/2019 that showed no new consolidations identified, mild left basilar infiltrate, grossly stable. White blood cell count has returned to normal. She was tested for Coronavirus, with none detected so it is now felt that she can safely be discharged back to the long-term where she is a long-term resident. DISCHARGE MEDICATIONS: The discharge medications include atorvastatin 40 mg p.o. at bedtime, Dulcolax 10 mg per rectum b.i.d., duloxetine 60 mg p.o. daily, probiotic p.o. daily, Synthroid 100 mcg p.o. ACB, metoclopramide 10 mg p.o. b.i.d., omeprazole 40 mg p.o. b.i.d., trazodone 50 mg p.o. at bedtime, valproic acid 250 mg per 5 mL, give 10 mL p.o. b.i.d., Augmentin 875/125 one p.o. b.i.d. #10 with no refills, aspirin 325 mg p.o. daily, and Neurontin 100 mg p.o. b.i.d. FOLLOWUP: She will follow up with long-term physician. All discharge instructions have been reviewed. She verbalizes understanding. TIME SPENT ON DISCHARGE: 35 minutes. Dictated by ANA Myers for David Crooks MD cc: ANA Myers MD I have seen and examined Ms. Del Toro today. Ms. Del Toro is clinically stable stable. She is been discharged to long-term to continue medical care. I agree with the above discharge summary. I have reconciled her home medication and discussed with her. RENZO JAFFE
[2019-10-12] MEDS: NEURONTIN PO SCH (09:44)
[2019-10-12] MEDS: DEPAKENE LIQUID PO SCH (09:44)
[2019-10-12] MEDS: CYMBALTA PO SCH (09:44)
[2019-10-12] MEDS: CULTURELLE PO SCH (09:45)
[2019-10-12] MEDS: LOTRIMIN 1% CREAM TOP SCH (09:45)
[2019-10-12] MEDS: REGLAN PO SCH (09:45)
[2019-10-12] MEDS: DULCOLAX PR SCH (09:45)
[2019-10-12 15:32] VITALS: BP 137/73
== END 2019-10-12 17:28 | DRG 871 ==
LOC: ED 10:45 → 3N 14:54 → SUATTDRO 14:54 → 3N 10-10 15:32
PROVIDERS: ATTEND Internal Medicine